=== PATIENT | female | born 1955 | race Caucasian/White ===

== ENCOUNTER 2024-01-11 09:53 | Inpatient (IN) ==
[2024-01-11 10:26] LABS: Basophils # (auto) 0.04 K/uL (0.00-0.20); Basophils % (auto) 0.5 %; Eosinophils # (auto) 0.08 K/uL (0.00-0.50); Hematocrit (blood only) 27.3 % (37.0-47.0); Hemoglobin 9.1 g/dl (12.0-16.0); Immature Granulocytes # (auto) 0.06 K/uL (0.01-0.20); Immature Granulocytes % (auto) 0.7 %; Lymphocytes # (auto) 0.86 K/uL (1.20-3.40); Lymphocytes % (auto) 10.7 %; Mean Corpuscular Hemoglobin 29.4 pg (25.0-34.0); Mean Corpuscular Hgb Conc 33.3 g/dL (32.0-36.0); Mean Corpuscular Volume 88.1 fL (80.0-100.0); Mean Platelet Volume 10.8 fL (9.4-12.4); Monocytes # (auto) 0.98 K/uL (0.11-0.59); Monocytes % (auto) 12.2 %; Neutrophils # (auto) 6.04 K/uL (1.40-6.50); Neutrophils % (auto) 74.9 %; Platelet Count 182 K/uL (130-400); RDW Coefficient of Variation 19.7 % (11.5-14.5); RDW Standard Deviation 63.7 fL (36.4-46.3); White Blood Count 8.06 K/ul (4.8-10.8)
[2024-01-11 10:42] LABS: Pregnancy Test, Serum Negative (Negative)
[2024-01-11 10:43] LABS: Albumin Globulin Ratio 0.9 (0.9-2); Albumin Level 2.9 gm/dl (3.4-5.0); BUN Creatinine Ratio 10.1 (10-20); Bilirubin,Total 3.8 mg/dl (0.2-1.0); Calcium 7.9 mg/dl (8.6-10.3); Creatinine Clr Calc Pharmacy 55.8 ml/min; Globulin 3.2 gm/dl (2.5-4.0); Potassium 2.6 mmol/L (3.5-5.1); Total Protein 6.1 gm/dl (6.0-8.3)
[2024-01-11] MEDS: POTASSIUM CHLORIDE CRTAB 20 MEQ TABCR PO STA ×2 (11:04→14:23)
[2024-01-11 11:05] LABS: INR 1.3 (0.9-1.1); Prothrombin Time 13.5 Seconds (9.0-12.0)
[2024-01-11 11:08] LABS: Magnesium 1.4 mg/dl (1.7-2.4)
[2024-01-11] MEDS: OPTIRAY 320 100ml IV ONE (11:12)
[2024-01-11] MEDS: MAGNESIUM SULFATE / D5W 1 GM/100 ML BAG IV STA (11:21)
--- NOTE | 2024-01-11 11:21 | XRay Report ---
LEFT ANKLE 3 VIEWS CLINICAL HISTORY: Left ankle pain. FINDINGS: 3 views of the left ankle are compared to study dated 07/10/2020. The skeletal structures ar e osteopenic. No acute fracture is identified. There is chronic posttraumatic deformity of the distal tibia and fibula. A buttress plate is again seen along the lateral cortex of the distal fibula. 2 sm all plates are seen along the medial cortex of the distal tibia. The orthopedic hardware appears inta ct. Benign-appearing periostitis is seen along the distal tibial and fibular shafts. The ankle mortis e is intact. No joint effusion is identified. There are tiny dorsal and plantar heel spurs. Soft tiss ue swelling is seen around the ankle. IMPRESSION: 1. Soft tissue swelling with no radiographic evidence of acute fracture. 2. Osteopenia with chronic and postsurgical changes as above. 3. Tiny healed spurs. Electronically signed by: Arsalan Carreon M.D. 01/11/2024 11:19 AM
--- NOTE | 2024-01-11 11:40 | CT Scan Report ---
CT SCAN OF THE ABDOMEN AND PELVIS WITH IV CONTRAST CLINICAL HISTORY: Generalized abdominal pain. Distention. COMPARISON STUDY: No priors. TECHNIQUE: Following the IV administration of 94 cc of Optiray 320, CT scan of the abdomen and pelvi s is performed from the lung bases to the proximal femora. Images are reviewed in the axial, sagittal , and coronal planes. IV contrast was administered without complication. A dose lowering technique wa s utilized adhering to the principles of ALARA. CT DOSE: 684.74 mGy.cm FINDINGS: Lung bases: The heart is normal in size and without pericardial effusion. There is coronary artery at herosclerosis. Emphysematous change is noted. There is bibasilar scarring/atelectasis. No airspace co nsolidation or pleural effusion identified. There is a moderate to large hiatal hernia. Esophageal va rices are noted. Liver: The contrast-enhanced liver is cirrhotic in morphology and heterogeneous in attenuation. Atten uation is diminished indicating a component of steatosis. There is hypertrophy of the left lobe and n odularity of the hepatic surface contour. There is diffuse micronodularity throughout the liver. Ther e is no intrahepatic biliary ductal dilatation. The hepatic veins and portal veins are patent. There is recanalization of the periumbilical vein. Gallbladder: Unremarkable. Spleen: Normal in size and attenuation, measuring 10.3 cm in length. Pancreas: Unremarkable. Adrenal glands: Unremarkable. Kidneys: The contrast enhanced kidneys are normal in size and without hydronephrosis. The kidneys enh ance symmetrically. Abdominal vasculature: There is advanced atherosclerotic calcification and ectasia of the abdominal a kimberly. Bowel: There is mild colonic diverticulosis without CT evidence of acute diverticulitis. No bowel obs truction is seen. Wall thickening and edema of the right colon is nonspecific and likely represents p ortal colopathy.. The appendix is normal as imaged. Peritoneum: There is a moderate to large volume of abdominopelvic ascites. No intraperitoneal free ai r is seen. Lymphadenopathy: None. Pelvic viscera: The bladder is decompressed and not well evaluated. The endometrium appears thickened an enhancing. No adnexal lesion is seen. Skeletal structures: The skeletal structures are heterogeneously osteopenic. There is mild to moderat e lumbosacral spondylosis. No lytic or blastic lesions are seen. IMPRESSION: 1. The liver is cirrhotic in morphology and heterogeneous in attenuation. 2. Moderate to large volume of abdominopelvic ascites, esophageal varices, and recanalization of the periumbilical vein indicate portal hypertension. 3. There is diffuse micronodularity throughout the liver, which may represent regenerative nodules of cirrhosis. Correlate with serum AFP levels. 4. Moderate to large hiatal hernia. 5. Emphysema. 6. Wall thickening of the left colon is nonspecific and likely represent portal colopathy. Clinical c orrelation will be required. 7. The endometrium appears thickened and hyperemic. This is not well assessed by CT. Nonemergent foll ow-up with gynecology and pelvic ultrasound is recommended for further assessment. 8. Additional findings as above. ACT 112: Negative or not required by law. Electronically signed by: Arsalan Carreon M.D. 01/11/2024 11:37 AM
--- NOTE | 2024-01-11 12:12 | Electrocardiogram Report ---
Test Reason : Blood Pressure : */* mmHG Vent. Rate : 89 BPM Atrial Rate : 89 BPM P-R Int : 148 ms QRS Dur : 68 ms QT Int : 352 ms P-R-T Axes : 104 89 53 degrees QTcB Int : 428 ms Poor data quality, interpretation may be adversely affected Normal sinus rhythm Low voltage QRS Borderline ECG No previous ECGs available Confirmed by Jordan Garcia ([id number]) on 01/11/2024 12:12:21 PM Referred By: REFERRED SELF Confirmed By: Jordan Garcia
--- NOTE | 2024-01-11 12:25 | Emergency Department Note ---
Impression & Plan Abdominal distension, Ascites, Hyperbilirubinemia, Alcohol use disorder ED Provider Note ED Provider Note NAME: CASEY CALLES AGE:68 SEX: Female : 1955 ARRIVES VIA: EMS INFORMANT: Patient ED PROVIDER(s): Ranjana Abdul DO CHIEF COMPLAINT: Abdominal distention and firmness HPI: This is a 68-year-old female who presents emergency room due to concern for 5 days of increased abdominal distention and firmness per her report. She states she does have some mild pain, no radiation to the back. She denies any nausea or vomiting. She denies any change in urine or stools. She states she has had a similar episode previously but does not recall what the cause was. She states she does have a history of liver problems and does use alcohol though states she has not drank in 6 days. She denies any use of recreationl drugs. She states she "broke her ankle" recently but states she has been walking without pain. PAST MEDICAL HISTORY:See Below PAST SURGICAL HISTORY:See Below FAMILY HISTORY:See Below SOCIAL HISTORY:See Below HOME MEDICATIONS:See Below ALLERGIES:See Below VITALS:See Below PHYSICAL EXAMINATION: GENERAL: alert, well appearing, well nourished, no distress, non-toxic EYE EXAM: normal conjunctiva, PERRL and EOM's grossly intact OROPHARYNX: no exudate, no erythema, lips, buccal mucosa, and tongue normal and mucous membranes are moist NECK: supple, no nuchal rigidity, no adenopathy, non-tender LUNGS: Clear to auscultation. Normal chest wall mechanics, no w/r/r HEART: no murmurs, S1 normal and S2 normal ABDOMEN: abdomen soft, non-tender, normo-active bowel sounds, no masses, no rebound or guarding. Mild distention, dull to percussion, no fluid wave. SKIN: no rashes, petechiae, orbruising UPPER EXTREMITIES: upper extremities are grossly normal. FROM, nml pulses b/l. LOWER EXTREMITIES: No pitting edema. FROM, nml pulses b/l. NEURO EXAM: Normal sensorium, cranial nerves II-XII grossly intact, normal speech, no facial droop,nogross weakness of arms, no gross weakness of legs. Gross sensation intact. No ataxia. Vital Signs: reviewed and remarkable Differential Diagnosis: ascites, viral syndrome, colitis, SBP, electrolyte abnormality, THELMA, hepatitis, cholecystitis, pancreatitis, AAA, mesenteric ischemia, PUD, as well as others were considered MEDICAL DECISION MAKING: THis is a 68 yo female who presents to the ER with concern for abdominal discomfort and distention. She was afebrile and VS stable. Labs drawn and sent, IV established, EKG performed and interpreted at bedside, and patient placed on telemetry. She was sent for CT a/p. Patient given oral potassium repletion and IV magnesium repletion. Given presentation and consideration for ascities, medical alcohol and ammonia added. Ammonia noted to be mildly elevated. No exam findings to suggest SBP. Patient was asking to eat. Given need for further evaluation given lab/imaging findings, no access to prior labs thru the [place], patient living alone, case discussed with the hospitalist team for additional evaluation and mgmt. Anemia noted, patient denied melena/hematochezia. State she doens't take any medications and denies using OTC asa/nsaids. No thrombocytopenia, mild coagulopathy noted. Consultation(s): 1415: Discussed with Dr. Torrez, [facility] hospitalist team, for additional evaluation and management. ER Treatment Provided: See below Diagnostics Interpreted By Me: -ECG: nsr at 89, nml axis, nml intervals, no acute ST/T wave changes, low voltage noted -Cardiac Monitoring: An order was placed for continuous cardiac monitoring. The monitor shows a rate of 82 with normal sinus rhythm. -Laboratory studies: As stated above and show below. -Imaging studies: CT a/p - ascites noted, no perf, no sbo xray left ankle: no fx/dislocation Triage Nursing Note Reviewed Prior/Outside Records Reviewed Past Med/Surg History Problem List (Updated 01/11/24 @ 14:51 by Rojelio Sánchez PA-C) Hepatic encephalopathy Tobacco use Esophageal varices Fall Ascites Thickened endometrium Portal hypertension Liver cirrhosis Anemia Hypokalemia Hypomagnesemia Alcohol use disorder (Acute) Hyperbilirubinemia (Acute) Ascites (Acute) Abdominal distension (Acute) Medical History No acute medical problems Surgical History History of ankle surgery Social History Smoking Status: Current every day smoker Tobacco Type: Cigarettes Hx Alcohol Use: Yes Alcohol type: beer Hx Substance Use: No Preferred Language: Slovak Communication Ability: Effective 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 Beliefs That Will Affect Care: None Current Living Situation: Alone Feels Safe at Home: Yes Allergies Allergies Allergy/AdvReac Type Severity Reaction Status Date / Time No Known Allergies Allergy Unverified 01/11/24 14:10 Home Meds Home Medications Medication Instructions Recorded Confirmed No Known Home Medications 01/11/24 01/11/24 Results & Data (ED) Vital Signs Vital Signs - 24 hr 01/11/24 10:00 01/11/24 10:00 01/11/24 10:15 Temperature 36.4 C L 36.4 C L Temperature Source Oral Oral Pulse Rate 88 88 Pulse Rate [Apical] 88 Pulse Rate from SpO2 Sensor 88 Pulse Rhythm Regular Pulse Rhythm [Apical] Regular Pulse Strength Normal Pulse Strength [Apical] Normal Respiratory Rate 19 16 17 Respiratory Effort / Characteristics Non-Labored Non-Labored Respiratory Depth Normal Normal Respiratory Pattern Regular Blood Pressure 123/86 Blood Pressure [Right Arm] 123/86 Blood Pressure Mean 98 Blood Pressure Mean [Right Arm] 98 Blood Pressure Position Sitting Blood Pressure Position [Right Arm] Sitting Pulse Oximetry 100 100 99 Oxygen Delivery Method Room Air Room Air Sepsis Recent Fever Within 48 Hours No Sepsis New/Unexplained Change in Mental Status No Sepsis Action Taken by Nursing No Action Required 01/11/24 10:28 01/11/24 10:33 01/11/24 11:27 Temperature Temperature Source Pulse Rate 88 86 77 Pulse Rate [Apical] Pulse Rate from SpO2 Sensor 77 Pulse Rhythm Pulse Rhythm [Apical] Pulse Strength Pulse Strength [Apical] Respiratory Rate 17 18 Respiratory Effort / Characteristics Respiratory Depth Respiratory Pattern Blood Pressure Blood Pressure [Right Arm] Blood Pressure Mean Blood Pressure Mean [Right Arm] Blood Pressure Position Blood Pressure Position [Right Arm] Pulse Oximetry 100 Oxygen Delivery Method Sepsis Recent Fever Within 48 Hours Sepsis New/Unexplained Change in Mental Status Sepsis Action Taken by Nursing 01/11/24 11:36 01/11/24 12:00 01/11/24 12:01 Temperature Temperature Source Pulse Rate 74 75 Pulse Rate [Apical] 72 Pulse Rate from SpO2 Sensor 74 Pulse Rhythm Pulse Rhythm [Apical] Regular Pulse Strength Pulse Strength [Apical] Normal Respiratory Rate 18 18 16 Respiratory Effort / Characteristics Non-Labored Respiratory Depth Normal Respiratory Pattern Blood Pressure Blood Pressure [Right Arm] 112/76 Blood Pressure Mean Blood Pressure Mean [Right Arm] 88 Blood Pressure Position Blood Pressure Position [Right Arm] Lying Pulse Oximetry 100 94 Oxygen Delivery Method Room Air Sepsis Recent Fever Within 48 Hours Sepsis New/Unexplained Change in Mental Status Sepsis Action Taken by Nursing 01/11/24 12:06 01/11/24 12:07 01/11/24 12:07 Temperature Temperature Source Pulse Rate 72 Pulse Rate [Apical] Pulse Rate from SpO2 Sensor Pulse Rhythm Pulse Rhythm [Apical] Pulse Strength Pulse Strength [Apical] Respiratory Rate 13 Respiratory Effort / Characteristics Respiratory Depth Respiratory Pattern Blood Pressure 116/75 116/75 Blood Pressure [Right Arm] Blood Pressure Mean 83 83 Blood Pressure Mean [Right Arm] Blood Pressure Position Blood Pressure Position [Right Arm] Pulse Oximetry Oxygen Delivery Method Sepsis Recent Fever Within 48 Hours Sepsis New/Unexplained Change in Mental Status Sepsis Action Taken by Nursing 01/11/24 12:30 01/11/24 12:57 01/11/24 13:01 Temperature Temperature Source Pulse Rate 71 73 Pulse Rate [Apical] Pulse Rate from SpO2 Sensor Pulse Rhythm Pulse Rhythm [Apical] Pulse Strength Pulse Strength [Apical] Respiratory Rate 12 17 Respiratory Effort / Characteristics Respiratory Depth Respiratory Pattern Blood Pressure 119/52 L Blood Pressure [Right Arm] Blood Pressure Mean 89 Blood Pressure Mean [Right Arm] Blood Pressure Position Blood Pressure Position [Right Arm] Pulse Oximetry Oxygen Delivery Method Sepsis Recent Fever Within 48 Hours Sepsis New/Unexplained Change in Mental Status Sepsis Action Taken by Nursing 01/11/24 13:01 01/11/24 13:09 01/11/24 13:39 Temperature Temperature Source Pulse Rate 74 80 Pulse Rate [Apical] Pulse Rate from SpO2 Sensor Pulse Rhythm Pulse Rhythm [Apical] Pulse Strength Pulse Strength [Apical] Respiratory Rate 16 22 Respiratory Effort / Characteristics Respiratory Depth Respiratory Pattern Blood Pressure 119/52 L Blood Pressure [Right Arm] Blood Pressure Mean 89 Blood Pressure Mean [Right Arm] Blood Pressure Position Blood Pressure Position [Right Arm] Pulse Oximetry Oxygen Delivery Method Sepsis Recent Fever Within 48 Hours Sepsis New/Unexplained Change in Mental Status Sepsis Action Taken by Nursing 01/11/24 13:48 01/11/24 14:00 01/11/24 14:00 Temperature Temperature Source Pulse Rate 81 Pulse Rate [Apical] Pulse Rate from SpO2 Sensor Pulse Rhythm Pulse Rhythm [Apical] Pulse Strength Pulse Strength [Apical] Respiratory Rate 19 Respiratory Effort / Characteristics Respiratory Depth Respiratory Pattern Blood Pressure 125/65 125/65 Blood Pressure [Right Arm] Blood Pressure Mean 92 92 Blood Pressure Mean [Right Arm] Blood Pressure Position Blood Pressure Position [Right Arm] Pulse Oximetry Oxygen Delivery Method Sepsis Recent Fever Within 48 Hours Sepsis New/Unexplained Change in Mental Status Sepsis Action Taken by Nursing 01/11/24 14:12 Temperature Temperature Source Pulse Rate 100 H Pulse Rate [Apical] Pulse Rate from SpO2 Sensor Pulse Rhythm Pulse Rhythm [Apical] Pulse Strength Pulse Strength [Apical] Respiratory Rate 21 Respiratory Effort / Characteristics Respiratory Depth Respiratory Pattern Blood Pressure Blood Pressure [Right Arm] Blood Pressure Mean Blood Pressure Mean [Right Arm] Blood Pressure Position Blood Pressure Position [Right Arm] Pulse Oximetry Oxygen Delivery Method Sepsis Recent Fever Within 48 Hours Sepsis New/Unexplained Change in Mental Status Sepsis Action Taken by Nursing Laboratory Data 01/11/24 10:02 01/11/24 19:46 Lab Results 01/11/24 01/11/24 Range/Units 10:02 12:05 WBC 8.06 (4.8-10.8) K/ul RBC 3.10 L (4.20-5.40) M/uL Hgb 9.1 L (12.0-16.0) g/dl Hct 27.3 L (37.0-47.0) % MCV 88.1 (80.0-100.0) fL MCH 29.4 (25.0-34.0) pg MCHC 33.3 (32.0-36.0) g/dL RDW Std Deviation 63.7 H (36.4-46.3) fL RDW Coeff of Liam 19.7 H (11.5-14.5) % Plt Count 182 (130-400) K/uL MPV 10.8 (9.4-12.4) fL Immature Gran % (Auto) 0.7 % Neut % (Auto) 74.9 % Lymph % (Auto) 10.7 % Karnes % (Auto) 12.2 % Eos % (Auto) 1.0 % Baso % (Auto) 0.5 % Neut # (Auto) 6.04 (1.40-6.50) K/uL Lymph # (Auto) 0.86 L (1.20-3.40) K/uL Karnes # (Auto) 0.98 H (0.11-0.59) K/uL Eos # (Auto) 0.08 (0.00-0.50) K/uL Baso # (Auto) 0.04 (0.00-0.20) K/uL Immature Gran # (Auto) 0.06 (0.01-0.20) K/uL PT 13.5 H (9.0-12.0) Seconds INR 1.3 H (0.9-1.1) Sodium 135 L (136-145) mmol/L Potassium 2.6 L (3.5-5.1) mmol/L Chloride 107 (98-107) mmol/L Carbon Dioxide 19 L (21-32) mmol/L Anion Gap 9 (3-11) BUN 9 (6-23) mg/dl Creatinine 0.89 (0.6-1.2) mg/dl Est Cr Clr Drug Dosing 55.8 ml/min eGFR 71.01 BUN/Creatinine Ratio 10.1 (10-20) Glucose 151 H (70-99(Fasting)) mg/dl Calcium 7.9 L (8.6-10.3) mg/dl Magnesium 1.4 L (1.7-2.4) mg/dl Iron 54 (35-150) mcg/dl TIBC 200 L (250-450) mcg/dl Unsaturated IBC 146 L (155-355) mcg/dl Transferrin % Sat 27 (15-50) % Ferritin 57.2 (8-388) ng/ml Total Bilirubin 3.8 H (0.2-1.0) mg/dl AST 81 H (13-39) U/L ALT 33 (7-52) U/L Alkaline Phosphatase 128 H (34-104) U/L Ammonia 73.0 H (18-72) umol/L Total Protein 6.1 (6.0-8.3) gm/dl Albumin 2.9 L (3.4-5.0) gm/dl Globulin 3.2 (2.5-4.0) gm/dl Albumin/Globulin Ratio 0.9 (0.9-2) Lipase 20 (11-82) U/L Vitamin B12 > 1500 H (180-914) pg/ml Folate 13.53 (>5.38) ng/ml HCG, Qual Negative (Negative) Ethyl Alcohol mg/dL < 10.0 (<10.0) mg/dl Administered Medications Acetaminophen (Acetaminophen 325 Mg Tab) 650 mg PO Q6H PRN PRN Reason: Pain or Fever Stop: 02/10/24 19:59 Last Admin: 01/11/24 20:54 Dose: 650 mg Documented By: CHARIS Potassium Chloride (Potassium Chloride Crtab 20 Meq Tabcr) 20 meq PO TID GLORIA Stop: 02/10/24 20:59 Last Admin: 01/11/24 20:54 Dose: 20 meq Documented By: CHARIS Discontinued Medications Magnesium Sulfate/Dextrose (Magnesium Sulfate / D5w) 1 gm in 100 mls @ 100 mls/hr IV NOW STA Stop: 01/11/24 12:10 Last Infusion: 01/11/24 12:23 Dose: Infused Documented By: Admin: 01/11/24 11:21 Dose: 100 mls/hr Documented By: JERMAINE Magnesium Sulfate/Dextrose (Magnesium Sulfate / D5w) 1 gm in 100 mls @ 50 mls/hr IV ONE ONE Stop: 01/11/24 15:47 Last Infusion: 01/11/24 16:47 Dose: Infused Documented By: [facility] [place] Admin: 01/11/24 14:23 Dose: 50 mls/hr Documented By: ROMEL Ceftriaxone Sodium (Rocephin) 2,000 mg in 50 mls @ 100 mls/hr IV Q24H [facility] Stop: 01/13/24 14:59 Last Infusion: 01/11/24 16:47 Dose: Infused Documented By: [facility] [place] Admin: 01/11/24 14:58 Dose: 100 mls/hr Documented By: JERMAINE Ioversol (Optiray 320 100ml) 94 ml IV ONCE ONE Stop: 01/11/24 11:12 Last Admin: 01/11/24 11:12 Dose: 94 ml Documented By: JAYLENE Miscellaneous Information (Patient's Allergy Info Needs Entered) 1 each N/A NOW STA Stop: 01/11/24 14:02 Last Admin: 01/11/24 14:11 Dose: Not Given Documented By: ROMEL Potassium Chloride (Potassium Chloride Crtab 20 Meq Tabcr) 40 meq PO NOW STA Stop: 01/11/24 10:47 Last Admin: 01/11/24 11:04 Dose: 40 meq Documented By: JERMAINE Potassium Chloride (Potassium Chloride Crtab 20 Meq Tabcr) 40 meq PO NOW STA Stop: 01/11/24 13:49 Last Admin: 01/11/24 14:23 Dose: 40 meq Documented By: ES Imaging Data Radiologist's Impression: Abdomen/Pelvis CT 01/11/24 10:47 CT SCAN OF THE ABDOMEN AND PELVIS WITH IV CONTRAST CLINICAL HISTORY: Generalized abdominal pain. Distention. COMPARISON STUDY: No priors. TECHNIQUE: Following the IV administration of 94 cc of Optiray 320, CT scan of the abdomen and pelvis is performed from the lung bases to the proximal femora. Images are reviewed in the axial, sagittal, and coronal planes. IV contrast was administered without complication. A dose lowering technique was utilized adhering to the principles of ALARA. CT DOSE: 684.74 mGy.cm FINDINGS: Lung bases: The heart is normal in size and without pericardial effusion. There is coronary artery atherosclerosis. Emphysematous change is noted. There is bibasilar scarring/atelectasis. No airspace consolidation or pleural effusion identified. There is a moderate to large hiatal hernia. Esophageal varices are noted. Liver: The contrast-enhanced liver is cirrhotic in morphology and heterogeneous in attenuation. Attenuation is diminished indicating a component of steatosis. There is hypertrophy of the left lobe and nodularity of the hepatic surface contour. There is diffuse micronodularity throughout the liver. There is no intrahepatic biliary ductal dilatation. The hepatic veins and portal veins are patent. There is recanalization of the periumbilical vein. Gallbladder: Unremarkable. Spleen: Normal in size and attenuation, measuring 10.3 cm in length. Pancreas: Unremarkable. Adrenal glands: Unremarkable. Kidneys: The contrast enhanced kidneys are normal in size and without hydronephrosis. The kidneys enhance symmetrically. Abdominal vasculature: There is advanced atherosclerotic calcification and ectasia of the abdominal aorta. Bowel: There is mild colonic diverticulosis without CT evidence of acute diverticulitis. No bowel obstruction is seen. Wall thickening and edema of the right colon is nonspecific and likely represents portal colopathy.. The appendix is normal as imaged. Peritoneum: There is a moderate to large volume of abdominopelvic ascites. No intraperitoneal free air is seen. Lymphadenopathy: None. Pelvic viscera: The bladder is decompressed and not well evaluated. The endometrium appears thickened an enhancing. No adnexal lesion is seen. Skeletal structures: The skeletal structures are heterogeneously osteopenic. There is mild to moderate lumbosacral spondylosis. No lytic or blastic lesions are seen. IMPRESSION: 1. The liver is cirrhotic in morphology and heterogeneous in attenuation. 2. Moderate to large volume of abdominopelvic ascites, esophageal varices, and recanalization of the periumbilical vein indicate portal hypertension. 3. There is diffuse micronodularity throughout the liver, which may represent regenerative nodules of cirrhosis. Correlate with serum AFP levels. 4. Moderate to large hiatal hernia. 5. Emphysema. 6. Wall thickening of the left colon is nonspecific and likely represent portal colopathy. Clinical correlation will be required. 7. The endometrium appears thickened and hyperemic. This is not well assessed by CT. Nonemergent follow-up with gynecology and pelvic ultrasound is recommended for further assessment. 8. Additional findings as above. ACT 112: Negative or not required by law. Electronically signed by: Arsalan Carreon M.D. 01/11/2024 11:37 AM Ankle X-Ray 01/11/24 10:47 LEFT ANKLE 3 VIEWS CLINICAL HISTORY: Left ankle pain. FINDINGS: 3 views of the left ankle are compared to study dated 07/10/2020. The skeletal structures are osteopenic. No acute fracture is identified. There is chronic posttraumatic deformity of the distal tibia and fibula. A buttress plate is again seen along the lateral cortex of the distal fibula. 2 small plates are seen along the medial cortex of the distal tibia. The orthopedic hardware appears intact. Benign-appearing periostitis is seen along the distal tibial and fibular shafts. The ankle mortise is intact. No joint effusion is identified. There are tiny dorsal and plantar heel spurs. Soft tissue swelling is seen around the ankle. IMPRESSION: 1. Soft tissue swelling with no radiographic evidence of acute fracture. 2. Osteopenia with chronic and postsurgical changes as above. 3. Tiny healed spurs. Electronically signed by: Arsalan Carreon M.D. 01/11/2024 11:19 AM Discharge Plan Visit Data Chief Complaint: Abdominal Pain ED Provider: Ranjana Abdul Discharge Problem: Abdominal distension, Ascites, Hyperbilirubinemia, Alcohol use disorder Patient Disposition: Admitted As Inpatient Discharge Instructions Interventions: ED Discharge Assessment Last Done: 01/11/24 16:10
--- NOTE | 2024-01-11 13:34 | History & Physical Report ---
Date of Service January 11, 2024 Assessment & Plan (1) Ascites: Plan: Patient presented on 01/10 for abdominal distention, lower back pain, and bilateral wheezing While patient does have a listed history of alcohol abuse, she denies any recent alcohol use or history of heavy alcohol use Inconsistent story when discussing with ED provider; patient also reports that she fell when talking to her ED provider, but denies following on admission Concern for hepatic/metabolic encephalopathy (see below) Moderate to large volume abdominal pelvic ascites noted on A/P CT Also noted cirrhotic liver and diffuse micro nodularity throughout the liver No leukocytosis; afebrile Clinically, low suspicion for SBP; patient does report mild TTP in the RUQ, but abdominal exam is otherwise soft, NTP IR paracentesis ordered for the morning of 01/11 Will start patient on Lasix 20mg IV daily and Spironolactone 50 mg p.o. daily on 01/12 (or sooner pending mag/K repletion) Continuous telemetry monitoring A.m. CBC, CMP, PT/INR, Mag (2) Hepatic encephalopathy: Plan: Patient appears somewhat confused, and is fiddling with telemetry wires and removing telephone strips on arrival Ammonia mildly elevated at 73.0 on arrival Concern for hepatic encephalopathy Trend BMP q4h for now Will plan to start lactulose 20 mg p.o. on the morning of 01/12 (or after sufficient potassium/mag repletion) Monitor for diarrhea and rebound hypokalemia (3) Hypomagnesemia: Plan: Mag 1.4 on arrival Magnesium sulfate 1 g IV x 2 Continue repletion Trend mag (4) Hypokalemia: Plan: Potassium 2.6 on arrival Potassium chloride 80mEq p.o. supplementation Will start patient on potassium chloride supplement 20mEq TID Trend K (5) Anemia: Plan: Hgb 9.1 on arrival Patient denies any recent falls/injuries, melena, or blood in her urine or stool Clinically, no signs of active bleeding on physical exam; suspect this may be more gradual MCV WNL at 88.1, but elevated RDW FE panel, transferrin, vitamin B12, and folate ordered, pending ? B12 deficiency Trend CBC (6) Thickened endometrium: Plan: A/P CT on arrival revealed a thickened endometrium Nonemergent follow-up with gynecology is recommended upon discharge (7) Liver cirrhosis: Plan: Noted on A/P CT Treatment (as above) (8) Portal hypertension: Plan: Noted on A/P CT Treatment (as above) (9) Fall: Plan: Patient lives alone She reports that she fell and hurt her ankle on ED arrival However, she denies falling on admission Left ankle x-ray without acute fracture on arrival PT/OT evaluations appreciated Fall precautions (10) Esophageal varices: Plan: Unclear if these are new on A/P CT Rocephin 2000 mg IV q24h (11) Tobacco use: Plan: Patient is a current everyday tobacco cigarette smoker; <1 PPD Nicotine patch daily Continue to encourage cessation Plan Disposition: Admit to [facility] telemetry Full code Regular diet VTE PPx: Will hold chemical DVT PPX in the setting of potential paracentesis; SCDs History of Present Illness Chief Complaint: Abdominal distention/pain Primary Care Provider: NO PCP Crys is a 68-year-old female with PMH of alcohol use disorder and hyperbilirubinemia. She presented via EMS on 01/10 for lower back pain and abdominal distention. Patient reports that she came in because her stomach became "very hard". She reports that abdominal distention has been worsening over the past 4 to 5 days. Patient lives alone. She reports that she does have a history of liver issues, and believes she has "sclerosis" of the liver. She denies any trouble breathing, but does note abdominal pressure/pain. He rates the pain 5/10 at present, and characterizes it as a dull/achy pain that comes in waves. She denies any recent falls. She denies using a walker or cane at home. She does not take any medicine on a daily basis. Patient reports she is an everyday tobacco cigarette smoker; <1 PPD. She denies chewing tobacco or recreational drug use. She does report that she uses alcohol, but reports that her last drink was over 1 week ago. She denies history of heavy alcohol use. Patient's vitals are stable at time of admission. ED course: Potassium 40 mEq p.o. Magnesium sulfate 1 g IV ROS: Patient endorses cold intolerance, abdominal distention/pain, lower back pain, or nausea. Patient denies fever, night-sweats, dizziness, lightheadedness, chest pain, SOB, chest palpitations, pleuritic CP, cough, vomiting, diarrhea, blood in urine/stool, melena, burning with urination, saddle anesthesia, and numbness/tingling in the legs. Allergies Allergy/AdvReac Type Severity Reaction Status Date / Time No Known Allergies Allergy Unverified 01/11/24 14:10 Home Medications Medication Instructions Recorded Confirmed Type No Known Home Medications 01/11/24 01/11/24 History Past Med/Surg History Problem List (Updated 01/11/24 @ 14:51 by Rojelio Sánchez PA-C) Hepatic encephalopathy Tobacco use Esophageal varices Fall Ascites Thickened endometrium Portal hypertension Liver cirrhosis Anemia Hypokalemia Hypomagnesemia Alcohol use disorder (Acute) Hyperbilirubinemia (Acute) Ascites (Acute) Abdominal distension (Acute) Medical History No acute medical problems Surgical History History of ankle surgery Social History Smoking Status: Current every day smoker Tobacco Type: Cigarettes Preferred Language: Georgian Feels Safe at Home: Yes Review of Systems Review of Systems: See HPI above Physical Exam Physical Exam: General: On arrival, patient is standing by the telemetry wires gently stroking them; unplugged several wires; patient appears somewhat confused with a flat affect; no acute distress; non-toxic appearing; somewhat cachectic; cooperative; SpO2 94% on RA HEENT: normocephalic, atraumatic; no scleral icterus; PERRLA; vision and hearing intact Neck: supple; no lymphadenopathy; trachea midline Skin: warm, dry without signs of tenting; poor skin turgor; mild jaundice; no cyanosis; no rashes, bruising, lesions, or erythema noted CV: chest wall NTP; RRR; S1/S2 normal; no murmurs/rubs/gallops; pulses intact and symmetric at radial, DP, and PT Lungs: no acute respiratory distress; symmetrical chest wall expansion; clear breath sounds across all lung rojas w/o adventitious sounds; no wheezing ABD: Soft; moderate to large abdominal ascites; moderate distention; right upper quadrant is tender to palpation; BS present; no rebound/guarding MSK: no tics or fasciculations; no edema noted in the LEs b/l, nonerythematous Neuro: A&Ox3; normal mood and affect; fluent speech; no focal deficits; sensation grossly intact in the LEs b/l Results & Data Results & Data Vital Signs (Past 12 Hours) Vital Signs Temp Pulse Pulse Resp BP BP Pulse Ox 01/11/24 12:01 72 16 112/76 94 01/11/24 10:28 88 01/11/24 10:00 36.4 C L 88 16 123/86 100 01/11/24 10:00 36.4 C L 88 19 123/86 100 O2 Del Method 01/11/24 12:01 Room Air 01/11/24 10:28 01/11/24 10:00 Room Air 01/11/24 10:00 Room Air Laboratory Results Abnormal lab results 01/11/24 01/11/24 Range/Units 10:02 12:05 RBC 3.10 L (4.20-5.40) M/uL Hgb 9.1 L (12.0-16.0) g/dl Hct 27.3 L (37.0-47.0) % RDW Std Deviation 63.7 H (36.4-46.3) fL RDW Coeff of Liam 19.7 H (11.5-14.5) % Lymph # (Auto) 0.86 L (1.20-3.40) K/uL Gosper # (Auto) 0.98 H (0.11-0.59) K/uL PT 13.5 H (9.0-12.0) Seconds INR 1.3 H (0.9-1.1) Sodium 135 L (136-145) mmol/L Potassium 2.6 L (3.5-5.1) mmol/L Carbon Dioxide 19 L (21-32) mmol/L Glucose 151 H (70-99(Fasting)) mg/dl Calcium 7.9 L (8.6-10.3) mg/dl Magnesium 1.4 L (1.7-2.4) mg/dl Total Bilirubin 3.8 H (0.2-1.0) mg/dl AST 81 H (13-39) U/L Alkaline Phosphatase 128 H (34-104) U/L Ammonia 73.0 H (18-72) umol/L Albumin 2.9 L (3.4-5.0) gm/dl Diagnostic Findings Abdomen/Pelvis CT 01/11/24 10:47 CT SCAN OF THE ABDOMEN AND PELVIS WITH IV CONTRAST CLINICAL HISTORY: Generalized abdominal pain. Distention. COMPARISON STUDY: No priors. TECHNIQUE: Following the IV administration of 94 cc of Optiray 320, CT scan of the abdomen and pelvis is performed from the lung bases to the proximal femora. Images are reviewed in the axial, sagittal, and coronal planes. IV contrast was administered without complication. A dose lowering technique was utilized adhering to the principles of ALARA. CT DOSE: 684.74 mGy.cm FINDINGS: Lung bases: The heart is normal in size and without pericardial effusion. There is coronary artery atherosclerosis. Emphysematous change is noted. There is bibasilar scarring/atelectasis. No airspace consolidation or pleural effusion identified. There is a moderate to large hiatal hernia. Esophageal varices are noted. Liver: The contrast-enhanced liver is cirrhotic in morphology and heterogeneous in attenuation. Attenuation is diminished indicating a component of steatosis. There is hypertrophy of the left lobe and nodularity of the hepatic surface contour. There is diffuse micronodularity throughout the liver. There is no intrahepatic biliary ductal dilatation. The hepatic veins and portal veins are patent. There is recanalization of the periumbilical vein. Gallbladder: Unremarkable. Spleen: Normal in size and attenuation, measuring 10.3 cm in length. Pancreas: Unremarkable. Adrenal glands: Unremarkable. Kidneys: The contrast enhanced kidneys are normal in size and without hydronephrosis. The kidneys enhance symmetrically. Abdominal vasculature: There is advanced atherosclerotic calcification and ectasia of the abdominal aorta. Bowel: There is mild colonic diverticulosis without CT evidence of acute diverticulitis. No bowel obstruction is seen. Wall thickening and edema of the right colon is nonspecific and likely represents portal colopathy.. The appendix is normal as imaged. Peritoneum: There is a moderate to large volume of abdominopelvic ascites. No intraperitoneal free air is seen. Lymphadenopathy: None. Pelvic viscera: The bladder is decompressed and not well evaluated. The endometrium appears thickened an enhancing. No adnexal lesion is seen. Skeletal structures: The skeletal structures are heterogeneously osteopenic. There is mild to moderate lumbosacral spondylosis. No lytic or blastic lesions are seen. IMPRESSION: 1. The liver is cirrhotic in morphology and heterogeneous in attenuation. 2. Moderate to large volume of abdominopelvic ascites, esophageal varices, and recanalization of the periumbilical vein indicate portal hypertension. 3. There is diffuse micronodularity throughout the liver, which may represent regenerative nodules of cirrhosis. Correlate with serum AFP levels. 4. Moderate to large hiatal hernia. 5. Emphysema. 6. Wall thickening of the left colon is nonspecific and likely represent portal colopathy. Clinical correlation will be required. 7. The endometrium appears thickened and hyperemic. This is not well assessed by CT. Nonemergent follow-up with gynecology and pelvic ultrasound is recommended for further assessment. 8. Additional findings as above. ACT 112: Negative or not required by law. Electronically signed by: Arsalan Carreon M.D. 01/11/2024 11:37 AM Ankle X-Ray 01/11/24 10:47 LEFT ANKLE 3 VIEWS CLINICAL HISTORY: Left ankle pain. FINDINGS: 3 views of the left ankle are compared to study dated 07/10/2020. The skeletal structures are osteopenic. No acute fracture is identified. There is chronic posttraumatic deformity of the distal tibia and fibula. A buttress plate is again seen along the lateral cortex of the distal fibula. 2 small plates are seen along the medial cortex of the distal tibia. The orthopedic hardware appears intact. Benign-appearing periostitis is seen along the distal tibial and fibular shafts. The ankle mortise is intact. No joint effusion is identified. There are tiny dorsal and plantar heel spurs. Soft tissue swelling is seen around the ankle. IMPRESSION: 1. Soft tissue swelling with no radiographic evidence of acute fracture. 2. Osteopenia with chronic and postsurgical changes as above. 3. Tiny healed spurs. Electronically signed by: Arsalan Carreon M.D. 01/11/2024 11:19 AM ECG Additional Comments: ECG revealed NSR at 89 bpm; QTc 428 Code Status & VTE Plan Code Status Full code (patient reports that she would want her friend Behzad to be her medical proxy in an emergency situation emergencies) VTE Prophylaxis Plan VTE Prophylaxis will be ordered: Yes Supervising Physician Co-Signing Physician Notes Patient seen and examined, chart reviewed, case discussed with Rojelio Sánchez PA-C and I agree with the assessment and plan as above except as otherwise noted Labs and images reviewed Crys is a 68-year-old female with past medical history of alcohol abuse with cirrhosis, hyperbilirubinemia, and she receives most of her care at the [facility] limiting records at time of admission who presented to the hospital with 5 days of worsening abdominal distention. On ER evaluation patient was intermittently confused, with some behavioral abnormalities and inconsistent story concerning for confabulation/encephalopathy. Patient was recommended for admission for management of abdominal pain likely due to ascites, and evaluation of possible Warnicke's versus hepatic encephalopathy. Synthetic function is impaired with INR of 1.3, albumin 2.9, ammonia of 73. CTA/P with cirrhotic liver morphology, moderate to large volume of ascites and stigmata of portal hypertension. Esophageal varices are noted radiographically. Alcohol level on admission is negative Records pending from [facility]. Limited history available at time of admission Cirrhosis, suspect hepatic encephalopathy Ammonia 73. Patient is mildly cephalopathic and would benefit from initiation of lactulose therapy however she is also severely hypokalemic with concerns of longstanding malnutrition. Given this recommend replating potassium and deferring lactulose until potassium is stable on at least 23 BMP rechecks prior due to risk of worsening hypokalemia with loose bowel movements. Will tentatively schedule to start 01/12 and continue potassium 3 times daily repletion until that time Start on low-dose Lasix/spironolactone and uptitrate as tolerated. This is scheduled to start on 01/12 a.m. Paracentesis ordered for morning of 01/12/2024. MeldNA 16 points, 6% 3-month mortality Child-De Santiago class C Patient denies melena/hematochezia. Hemoglobin has dropped from 13.7 in - 9.1 on admission. No baseline for reference. Patient is covered for GI bleed and for SBP prophylaxis with Rocephin daily. History of alcohol abuse Patient is not in withdrawal on admission, is at risk by history Placed on AWSS at risk protocol. Given thiamine repletion. B12/folic levels pending Hypokalemia: Repleted Hypomagnesemia: Repleted Endometrial thickening: Noted on CT. Recommend nonemergent ACCOUNTING ADVISORY SERVICES MANAGER pelvic ultrasound for follow-up. Agree with above. Collateral pending from [facility] PG Care Time/CCT Total # of Minutes Spent Total Time Spent with Patient: Total time spent is greater than 50% in coordination of care (as documented) at patient's floor/unit and/or counseling patient: [place] [address] INT INP/OBS CARE MIN Patient Type Established History Comprehensive Exam Comprehensive Medical Decision Making High Complexity Diagnoses Ascites R18.8 Hepatic encephalopathy K76.82 Hypomagnesemia E83.42 Hypokalemia E87.6 Anemia D64.9 Thickened endometrium R93.89 Liver cirrhosis K74.60 Portal hypertension K76.6 Fall W19.XXXA Esophageal varices I85.00 Tobacco use Z72.0
[2024-01-11] MEDS: Patient's ALLERGY Info needs ENTERED STA (14:11)
[2024-01-11] MEDS: MAGNESIUM SULFATE / D5W 1 GM/100 ML BAG IV ONE (14:23)
[2024-01-11] MEDS: cefTRIAXone SODIUM 2,000 MG/50 ML BAG IV SCH (14:58)
[2024-01-11 14:59] LABS: Ferritin 57.2 ng/ml (8-388)
[2024-01-11 15:07] LABS: Folate (Folic Acid),Ser orPlas 13.53 ng/ml (>5.38)
[2024-01-11 15:08] LABS: Vitamin B12 > 1500 pg/ml (180-914)
[2024-01-11 15:52] LABS: Calcium 7.7 mg/dl (8.6-10.3); Creatinine Clr Calc Pharmacy 59.8 ml/min; Potassium 2.8 mmol/L (3.5-5.1)
[2024-01-11 20:22] LABS: BUN Creatinine Ratio 9.7 (10-20); Calcium 7.6 mg/dl (8.6-10.3); Creatinine Clr Calc Pharmacy 53.4 ml/min; Magnesium 1.9 mg/dl (1.7-2.4); Potassium 2.9 mmol/L (3.5-5.1)
[2024-01-11] MEDS: POTASSIUM CHLORIDE CRTAB 20 MEQ TABCR PO SCH (20:54)
[2024-01-11] MEDS: ACETAMINOPHEN 325 MG TAB PO PRN (20:54)
[2024-01-12 06:22] LABS: Basophils # (auto) 0.04 K/uL (0.00-0.20); Basophils % (auto) 0.5 %; Eosinophils # (auto) 0.14 K/uL (0.00-0.50); Eosinophils % (auto) 1.6 %; Hematocrit (blood only) 23.1 % (37.0-47.0); Hemoglobin 7.8 g/dl (12.0-16.0); Immature Granulocytes # (auto) 0.06 K/uL (0.01-0.20); Immature Granulocytes % (auto) 0.7 %; Lymphocytes # (auto) 1.13 K/uL (1.20-3.40); Lymphocytes % (auto) 13.1 %; Mean Corpuscular Hemoglobin 28.9 pg (25.0-34.0); Mean Corpuscular Hgb Conc 33.8 g/dL (32.0-36.0); Mean Corpuscular Volume 85.6 fL (80.0-100.0); Mean Platelet Volume 11.1 fL (9.4-12.4); Monocytes # (auto) 1.08 K/uL (0.11-0.59); Monocytes % (auto) 12.5 %; Neutrophils # (auto) 6.18 K/uL (1.40-6.50); Neutrophils % (auto) 71.6 %; Platelet Count 163 K/uL (130-400); RDW Coefficient of Variation 19.8 % (11.5-14.5); RDW Standard Deviation 62.4 fL (36.4-46.3); White Blood Count 8.63 K/ul (4.8-10.8)
[2024-01-12 06:38] LABS: Albumin Globulin Ratio 0.9 (0.9-2); Albumin Level 2.5 gm/dl (3.4-5.0); BUN Creatinine Ratio 12.2 (10-20); Calcium 7.7 mg/dl (8.6-10.3); Creatinine Clr Calc Pharmacy 55.3 ml/min; Globulin 2.9 gm/dl (2.5-4.0); Magnesium 1.8 mg/dl (1.7-2.4); Potassium 3.7 mmol/L (3.5-5.1); Total Protein 5.4 gm/dl (6.0-8.3)
[2024-01-12 06:48] LABS: INR 1.2 (0.9-1.1); Prothrombin Time 13.1 Seconds (9.0-12.0)
[2024-01-12 06:51] LABS: Polychromasia 1+; Target Cells 1+; Toxic Granulation 1+
[2024-01-12] MEDS: NICOTINE 14 MG/24 HR PATCH TD SCH (07:30)
[2024-01-12] MEDS: ONDANSETRON INJ 2 MG/ML 2 ML VIAL IV PRN (12:22)
--- NOTE | 2024-01-12 14:58 | Ultrasound Report ---
ULTRASOUND-GUIDED PARACENTESIS CLINICAL HISTORY: Ascites PROCEDURE: Procedure and risks were explained. Informed consent was obtained. A final timeout was com pleted. The abdomen was prepped and draped in sterile fashion. 1% buffered lidocaine was utilized for skin anesthesia. Utilizing ultrasound guidance, a 5 Cambodian safety centesis catheter was advanced into the left lower q uadrant pocket of ascites. Ultrasound images were obtained. A total of 4 L of ascites fluid was remov ed with 1 L sent to the lab for analysis. The catheter was removed and Band-Aid applied. The patient tolerated the procedure well. Vital signs will be monitored postprocedure. IMPRESSION: Ultrasound-guided paracentesis as above. Performed, dictated, and signed by Ritchie Yeh PA-C; to be co-signed by Dr. Brian Mckenzie. Electronically signed by: Brian Mckenzie M.D. 01/12/2024 5:15 PM
[2024-01-12] MEDS: cefTRIAXone SODIUM 1,000 MG/50 ML BAG IV SCH (15:14)
[2024-01-12 16:08] LABS: Appearance Peritoneal Fluid Clear; Color Peritoneal Fluid Yellow; RBC Peritoneal Fluid Auto < 2000 /uL; WBC Peritoneal Fluid Auto 100 /ul (0-300)
[2024-01-12 16:47] LABS: Lymphocytes, Fluid 15 %; Mono,Macrophage,Mesothelial 53 %; Neutrophils, Fluid 32 %
[2024-01-12 18:17] LABS: Hemoglobin 8.2 g/dl (12.0-16.0)
[2024-01-12 18:33] LABS: BUN Creatinine Ratio 12.2 (10-20); Calcium 7.7 mg/dl (8.6-10.3); Creatinine Clr Calc Pharmacy 55.3 ml/min; Potassium 3.6 mmol/L (3.5-5.1)
[2024-01-12 19:19] LABS: Albumin Peritoneal Fluid < 1.5 gm/dl; Total Protein Peritoneal Fluid < 3.0 gm/dl
[2024-01-12] MEDS: MAGNESIUM SULFATE / D5W 1 GM/100 ML BAG IV SCH (19:52)
[2024-01-12] MEDS: POT PHOSPHATE MONOBASIC W/ SOD TAB PO SCH (20:51)
--- NOTE | 2024-01-12 21:54 | Hospitalist Progress Note ---
Date of Service January 12, 2024 Assessment & Plan (1) Ascites: Plan: Patient presented on 01/10 for abdominal distention, lower back pain, and bilateral wheezing While patient does have a listed history of alcohol abuse, she denies any recent alcohol use or history of heavy alcohol use Inconsistent story when discussing with ED provider; patient also reports that she fell when talking to her ED provider, but denies following on admission Concern for hepatic/metabolic encephalopathy (see below) Moderate to large volume abdominal pelvic ascites noted on A/P CT Also noted cirrhotic liver and diffuse micro nodularity throughout the liver No leukocytosis; afebrile Clinically, low suspicion for SBP; patient does report mild TTP in the RUQ, but abdominal exam is otherwise soft, NTP IR paracentesis ordered for the morning of 01/11 Will start patient on Lasix 20mg IV daily and Spironolactone 50 mg p.o. daily on 01/12 (or sooner pending mag/K repletion) Continuous telemetry monitoring Removed 4 liters of fluid on 01/11 will monitor. (2) Hepatic encephalopathy: Plan: Patient appears somewhat confused, and is fiddling with telemetry wires and removing telephone strips on arrival Ammonia mildly elevated at 73.0 on arrival Concern for hepatic encephalopathy Trend BMP q4h for now Will plan to start lactulose 20 mg p.o. on the morning of 01/12 (or after sufficient potassium/mag repletion) Monitor for diarrhea and rebound hypokalemia (3) Hypomagnesemia: Plan: Mag 1.4 on arrival Magnesium sulfate 1 g IV x 2 Continue repletion Trend mag (4) Hypokalemia: Plan: Potassium 2.6 on arrival Potassium chloride 80mEq p.o. supplementation Will start patient on potassium chloride supplement 20mEq TID (5) Anemia: Plan: Hgb 9.1 on arrival Patient denies any recent falls/injuries, melena, or blood in her urine or stool Clinically, no signs of active bleeding on physical exam; suspect this may be more gradual MCV WNL at 88.1, but elevated RDW FE panel, transferrin, vitamin B12, and folate ordered, pending ? B12 deficiency Trend CBC (6) Thickened endometrium: Plan: A/P CT on arrival revealed a thickened endometrium Nonemergent follow-up with gynecology is recommended upon discharge (7) Liver cirrhosis: Plan: Noted on A/P CT Treatment (as above) (8) Portal hypertension: Plan: Noted on A/P CT Treatment (as above) (9) Fall: Plan: Patient lives alone She reports that she fell and hurt her ankle on ED arrival However, she denies falling on admission Left ankle x-ray without acute fracture on arrival PT/OT evaluations appreciated Fall precautions (10) Esophageal varices: Plan: Unclear if these are new on A/P CT Rocephin 2000 mg IV q24h (11) Tobacco use: Plan: Patient is a current everyday tobacco cigarette smoker; <1 PPD Nicotine patch daily Continue to encourage cessation Plan Disposition: Admit to [facility] telemetry Full code Regular diet VTE PPx: Will hold chemical DVT PPX in the setting of potential paracentesis; SCDs Admission and Anticipated Discharge Date Admission Date: January 11, 2024 Subjective 68 yo female reports no new symptoms. Review of Systems Review of Systems: All systems reviewed & are unremarkable except as noted in HPI & below Physical Exam Physical Exam: NAD HEENT: normocephalic, atraumatic; no scleral icterus; PERRLA; vision and hearing intact Neck: supple; no lymphadenopathy; trachea midline Skin: warm, dry without signs of tenting; Lungs: CTA B/L ABD: Soft; NT/ND Results & Data Results & Data Vital Signs (Past 12 Hours) Vital Signs Temp Pulse Pulse Pulse Resp BP Pulse Ox 01/12/24 19:53 36.7 C 93 H 20 101/65 98 01/12/24 16:30 36.8 C 88 16 98/62 L 99 01/12/24 14:50 92 H 01/12/24 10:43 36.8 C 86 18 95/58 L 99 O2 Del Method 01/12/24 19:53 Room Air 01/12/24 16:30 Room Air 01/12/24 14:50 01/12/24 10:43 Room Air PG Care Time/CCT Total # of Minutes Spent Total Time Spent with Patient: Total time spent is greater than 50% in coordination of care (as documented) at patient's floor/unit and/or counseling patient: Coding Level of Care Code 55232 SUB INP/OBS CARE 2/35MIN Diagnoses Ascites R18.8 Hepatic encephalopathy K76.82 Hypomagnesemia E83.42 Hypokalemia E87.6 Anemia D64.9 Thickened endometrium R93.89 Liver cirrhosis K74.60 Portal hypertension K76.6 Fall W19.XXXA Esophageal varices I85.00 Tobacco use Z72.0
[2024-01-13 07:09] LABS: Albumin Globulin Ratio 0.8 (0.9-2); Albumin Level 2.5 gm/dl (3.4-5.0); BUN Creatinine Ratio 10.7 (10-20); Bilirubin,Total 2.1 mg/dl (0.2-1.0); Calcium 7.8 mg/dl (8.6-10.3); Creatinine Clr Calc Pharmacy 64.3 ml/min; Globulin 3.1 gm/dl (2.5-4.0); Magnesium 1.9 mg/dl (1.7-2.4); Total Protein 5.6 gm/dl (6.0-8.3)
[2024-01-13 07:22] LABS: Basophils # (auto) 0.04 K/uL (0.00-0.20); Basophils % (auto) 0.5 %; Eosinophils # (auto) 0.16 K/uL (0.00-0.50); Eosinophils % (auto) 2.1 %; Hematocrit (blood only) 23.9 % (37.0-47.0); Hemoglobin 8.1 g/dl (12.0-16.0); Immature Granulocytes # (auto) 0.05 K/uL (0.01-0.20); Immature Granulocytes % (auto) 0.7 %; Lymphocytes # (auto) 1.35 K/uL (1.20-3.40); Lymphocytes % (auto) 17.6 %; Mean Corpuscular Hemoglobin 29.5 pg (25.0-34.0); Mean Corpuscular Hgb Conc 33.9 g/dL (32.0-36.0); Mean Corpuscular Volume 86.9 fL (80.0-100.0); Mean Platelet Volume 11.3 fL (9.4-12.4); Monocytes # (auto) 0.88 K/uL (0.11-0.59); Monocytes % (auto) 11.5 %; Neutrophils # (auto) 5.17 K/uL (1.40-6.50); Neutrophils % (auto) 67.6 %; Platelet Count 161 K/uL (130-400); RDW Coefficient of Variation 19.9 % (11.5-14.5); RDW Standard Deviation 63.7 fL (36.4-46.3); Red Blood Count 2.75 M/uL (4.20-5.40); White Blood Count 7.65 K/ul (4.8-10.8)
[2024-01-13 07:31] LABS: INR 1.2 (0.9-1.1); Prothrombin Time 12.8 Seconds (9.0-12.0)
[2024-01-13] MEDS: SPIRONOLACTONE 25 MG TAB PO SCH (08:06)
[2024-01-13] MEDS: LACTULOSE SYRUP 20 GM/30 ML UDC PO SCH (08:06)
[2024-01-13] MEDS: FUROSEMIDE INJ 20 MG/2 ML VIAL IV SCH (08:07)
--- NOTE | 2024-01-13 23:07 | Hospitalist Progress Note ---
Date of Service January 13, 2024 Assessment & Plan (1) Ascites: Plan: Patient presented on 01/10 for abdominal distention, lower back pain, and bilateral wheezing While patient does have a listed history of alcohol abuse, she denies any recent alcohol use or history of heavy alcohol use Inconsistent story when discussing with ED provider; patient also reports that she fell when talking to her ED provider, but denies following on admission Concern for hepatic/metabolic encephalopathy (see below) Moderate to large volume abdominal pelvic ascites noted on A/P CT Also noted cirrhotic liver and diffuse micro nodularity throughout the liver No leukocytosis; afebrile Clinically, low suspicion for SBP; patient does report mild TTP in the RUQ, but abdominal exam is otherwise soft, NTP IR paracentesis ordered for the morning of 01/11 Will start patient on Lasix 20mg IV daily and Spironolactone 50 mg p.o. daily on 01/12 (or sooner pending mag/K repletion) Continuous telemetry monitoring Removed 4 liters of fluid on 01/11 Patient is tolerating spironolactone, lasix Will reorder ammonia level. brandon need to increase lactulose (2) Hepatic encephalopathy: Plan: Patient appears somewhat confused, and is fiddling with telemetry wires and removing telephone strips on arrival Ammonia mildly elevated at 73.0 on arrival Concern for hepatic encephalopathy Trend BMP q4h for now Will plan to start lactulose 20 mg p.o. on the morning of 01/12 (or after sufficient potassium/mag repletion) Monitor for diarrhea and rebound hypokalemia (3) Hypomagnesemia: Plan: Mag 1.4 on arrival Magnesium sulfate 1 g IV x 2 Continue repletion Trend mag (4) Hypokalemia: Plan: Potassium 2.6 on arrival Potassium chloride 80mEq p.o. supplementation Will start patient on potassium chloride supplement 20mEq TID (5) Anemia: Plan: Hgb 9.1 on arrival Patient denies any recent falls/injuries, melena, or blood in her urine or stool Clinically, no signs of active bleeding on physical exam; suspect this may be more gradual MCV WNL at 88.1, but elevated RDW FE panel, transferrin, vitamin B12, and folate ordered, pending ? B12 deficiency Trend CBC (6) Thickened endometrium: Plan: A/P CT on arrival revealed a thickened endometrium Nonemergent follow-up with gynecology is recommended upon discharge (7) Liver cirrhosis: Plan: Noted on A/P CT Treatment (as above) (8) Portal hypertension: Plan: Noted on A/P CT Treatment (as above) (9) Fall: Plan: Patient lives alone She reports that she fell and hurt her ankle on ED arrival However, she denies falling on admission Left ankle x-ray without acute fracture on arrival PT/OT evaluations appreciated Fall precautions (10) Esophageal varices: Plan: Unclear if these are new on A/P CT Rocephin 2000 mg IV q24h (11) Tobacco use: Plan: Patient is a current everyday tobacco cigarette smoker; <1 PPD Nicotine patch daily Continue to encourage cessation Plan [facility] Full [facility] Regular diet VTE PPx: Will hold chemical DVT PPX in the setting of potential paracentesis; SCDs Admission and Anticipated Discharge Date Admission Date: January 11, 2024 Subjective Patient appears confused. She wants to go home, however agrees to looking into a rehab Review of Systems Review of Systems: All systems reviewed & are unremarkable except as noted in HPI & below Physical Exam Physical Exam: NAD HEENT: normocephalic, atraumatic; no scleral icterus; PERRLA; vision and hearing intact Neck: supple; no lymphadenopathy; trachea midline Skin: warm, dry without signs of tenting; Lungs: CTA B/L ABD: Soft; NT/ND Results & Data Results & Data Vital Signs (Past 12 Hours) Vital Signs Temp Pulse Pulse Resp BP Pulse Ox Pulse Ox 01/13/24 19:52 36.7 C 89 20 90/60 L 92 01/13/24 16:00 95 01/13/24 15:47 108 H 01/13/24 11:49 36.8 C 63 18 91/61 L 93 O2 Del Method O2 Del Method 01/13/24 19:52 Room Air 01/13/24 16:00 Room Air 01/13/24 15:47 01/13/24 11:49 Room Air PG Care Time/CCT Total # of Minutes Spent Total Time Spent with Patient: Total time spent is greater than 50% in coordination of care (as documented) at patient's floor/unit and/or counseling patient: Coding Level of Care Code 72810 SUB INP/OBS CARE 2/35MIN Diagnoses Ascites R18.8 Hepatic encephalopathy K76.82 Hypomagnesemia E83.42 Hypokalemia E87.6 Anemia D64.9 Thickened endometrium R93.89 Liver cirrhosis K74.60 Portal hypertension K76.6 Fall W19.XXXA Esophageal varices I85.00 Tobacco use Z72.0
[2024-01-14 06:51] LABS: Basophils # (auto) 0.04 K/uL (0.00-0.20); Basophils % (auto) 0.5 %; Eosinophils # (auto) 0.15 K/uL (0.00-0.50); Eosinophils % (auto) 1.9 %; Hematocrit (blood only) 24.7 % (37.0-47.0); Hemoglobin 8.1 g/dl (12.0-16.0); Immature Granulocytes # (auto) 0.06 K/uL (0.01-0.20); Immature Granulocytes % (auto) 0.8 %; Lymphocytes # (auto) 1.23 K/uL (1.20-3.40); Lymphocytes % (auto) 15.7 %; Mean Corpuscular Hemoglobin 28.9 pg (25.0-34.0); Mean Corpuscular Hgb Conc 32.8 g/dL (32.0-36.0); Mean Corpuscular Volume 88.2 fL (80.0-100.0); Mean Platelet Volume 10.7 fL (9.4-12.4); Monocytes % (auto) 12.8 %; Neutrophils # (auto) 5.33 K/uL (1.40-6.50); Neutrophils % (auto) 68.3 %; Platelet Count 157 K/uL (130-400); RDW Standard Deviation 61.7 fL (36.4-46.3); White Blood Count 7.81 K/ul (4.8-10.8)
[2024-01-14 07:10] LABS: Albumin Globulin Ratio 0.8 (0.9-2); Albumin Level 2.5 gm/dl (3.4-5.0); BUN Creatinine Ratio 10.4 (10-20); Creatinine Clr Calc Pharmacy 60.9 ml/min; Globulin 3.1 gm/dl (2.5-4.0); Potassium 3.5 mmol/L (3.5-5.1); Total Protein 5.6 gm/dl (6.0-8.3)
[2024-01-14] MEDS: LACTULOSE SYRUP 20 GM/30 ML UDC PO SCH (08:27)
--- NOTE | 2024-01-14 22:49 | Hospitalist Progress Note ---
Date of Service January 14, 2024 Assessment & Plan (1) Ascites: Plan: Patient presented on 01/10 for abdominal distention, lower back pain, and bilateral wheezing While patient does have a listed history of alcohol abuse, she denies any recent alcohol use or history of heavy alcohol use Inconsistent story when discussing with ED provider; patient also reports that she fell when talking to her ED provider, but denies following on admission Concern for hepatic/metabolic encephalopathy (see below) Moderate to large volume abdominal pelvic ascites noted on A/P CT Also noted cirrhotic liver and diffuse micro nodularity throughout the liver No leukocytosis; afebrile Clinically, low suspicion for SBP; patient does report mild TTP in the RUQ, but abdominal exam is otherwise soft, NTP IR paracentesis ordered for the morning of 01/11 Will start patient on Lasix 20mg IV daily and Spironolactone 50 mg p.o. daily on 01/12 (or sooner pending mag/K repletion) Continuous telemetry monitoring Removed 4 liters of fluid on 01/11 Patient is tolerating spironolactone, lasix Increased lactulose, ammonia level showed improvement. will monitor stool output. (2) Hepatic encephalopathy: Plan: Patient appears somewhat confused, and is fiddling with telemetry wires and removing telephone strips on arrival Ammonia mildly elevated at 73.0 on arrival Concern for hepatic encephalopathy Trend BMP q4h for now Will plan to start lactulose 20 mg p.o. on the morning of 01/12 (or after sufficient potassium/mag repletion) Monitor for diarrhea and rebound hypokalemia (3) Hypomagnesemia: Plan: Mag 1.4 on arrival Magnesium sulfate 1 g IV x 2 Continue repletion Trend mag (4) Hypokalemia: Plan: Potassium 2.6 on arrival Potassium chloride 80mEq p.o. supplementation Will start patient on potassium chloride supplement 20mEq TID (5) Anemia: Plan: Hgb 9.1 on arrival Patient denies any recent falls/injuries, melena, or blood in her urine or stool Clinically, no signs of active bleeding on physical exam; suspect this may be more gradual MCV WNL at 88.1, but elevated RDW FE panel, transferrin, vitamin B12, and folate ordered, pending ? B12 deficiency (6) Thickened endometrium: Plan: A/P CT on arrival revealed a thickened endometrium Nonemergent follow-up with gynecology is recommended upon discharge (7) Liver cirrhosis: Plan: Noted on A/P CT Treatment (as above) (8) Portal hypertension: Plan: Noted on A/P CT Treatment (as above) (9) Fall: Plan: Patient lives alone She reports that she fell and hurt her ankle on ED arrival However, she denies falling on admission Left ankle x-ray without acute fracture on arrival PT/OT evaluations appreciated Fall precautions (10) Esophageal varices: Plan: Unclear if these are new on A/P CT Rocephin 2000 mg IV q24h (11) Tobacco use: Plan: Patient is a current everyday tobacco cigarette smoker; <1 PPD Nicotine patch daily Continue to encourage cessation Plan [facility] Full [facility] Regular diet VTE PPx: Will hold chemical DVT PPX in the setting of potential paracentesis; SCDs Admission and Anticipated Discharge Date Admission Date: January 11, 2024 Subjective 68 yo female reports no new symptoms. Review of Systems Review of Systems: All systems reviewed & are unremarkable except as noted in HPI & below Physical Exam Physical Exam: NAD HEENT: normocephalic, atraumatic; no scleral icterus; PERRLA; vision and hearing intact Neck: supple; no lymphadenopathy; trachea midline Skin: warm, dry without signs of tenting; Lungs: CTA B/L ABD: Soft; NT/ND Results & Data Results & Data Vital Signs (Past 12 Hours) Vital Signs Temp Pulse Pulse Resp BP BP Pulse Ox 01/14/24 20:07 36.7 C 96 H 20 71/71 L 97 01/14/24 16:00 01/14/24 15:31 37.2 C 98 H 20 110/74 98 01/14/24 15:05 88 01/14/24 12:11 36.8 C 100 H 18 102/72 98 Pulse Ox O2 Del Method O2 Del Method 01/14/24 20:07 Room Air 01/14/24 16:00 95 Room Air 01/14/24 15:31 Room Air 01/14/24 15:05 01/14/24 12:11 Room Air PG Care Time/CCT Total # of Minutes Spent Total Time Spent with Patient: Total time spent is greater than 50% in coordination of care (as documented) at patient's floor/unit and/or counseling patient: Coding Level of Care Code 87392 SUB INP/OBS CARE 2/35MIN Diagnoses Ascites R18.8 Hepatic encephalopathy K76.82 Hypomagnesemia E83.42 Hypokalemia E87.6 Anemia D64.9 Thickened endometrium R93.89 Liver cirrhosis K74.60 Portal hypertension K76.6 Fall W19.XXXA Esophageal varices I85.00 Tobacco use Z72.0
[2024-01-15 06:56] LABS: Hematocrit (blood only) 24.1 % (37.0-47.0); Hemoglobin 7.8 g/dl (12.0-16.0); Mean Corpuscular Hemoglobin 29.2 pg (25.0-34.0); Mean Corpuscular Hgb Conc 32.4 g/dL (32.0-36.0); Mean Corpuscular Volume 90.3 fL (80.0-100.0); Mean Platelet Volume 11.7 fL (9.4-12.4); Platelet Count 151 K/uL (130-400); RDW Coefficient of Variation 18.9 % (11.5-14.5); RDW Standard Deviation 63.5 fL (36.4-46.3); Red Blood Count 2.67 M/uL (4.20-5.40); White Blood Count 6.79 K/ul (4.8-10.8)
[2024-01-15 07:18] LABS: Albumin Globulin Ratio 0.8 (0.9-2); Albumin Level 2.5 gm/dl (3.4-5.0); BUN Creatinine Ratio 9.4 (10-20); Bilirubin,Total 1.8 mg/dl (0.2-1.0); Potassium 3.7 mmol/L (3.5-5.1); Total Protein 5.5 gm/dl (6.0-8.3)
--- NOTE | 2024-01-16 10:16 | Hospitalist Progress Note ---
Date of Service January 15, 2024 Assessment & Plan (1) Ascites: Plan: Patient presented on 01/10 for abdominal distention, lower back pain, and bilateral wheezing While patient does have a listed history of alcohol abuse, she denies any recent alcohol use or history of heavy alcohol use Inconsistent story when discussing with ED provider; patient also reports that she fell when talking to her ED provider, but denies following on admission Concern for hepatic/metabolic encephalopathy (see below) Moderate to large volume abdominal pelvic ascites noted on A/P CT Also noted cirrhotic liver and diffuse micro nodularity throughout the liver No leukocytosis; afebrile Clinically, low suspicion for SBP; patient does report mild TTP in the RUQ, but abdominal exam is otherwise soft, NTP IR paracentesis ordered for the morning of 01/11 Will start patient on Lasix 20mg IV daily and Spironolactone 50 mg p.o. daily on 01/12 (or sooner pending mag/K repletion) Continuous telemetry monitoring Removed 4 liters of fluid on 01/11 Patient is tolerating spironolactone, lasix Increased lactulose, ammonia level showed improvement. will monitor stool output. awaiting placement reviewed BMP on 01/14 (2) Hepatic encephalopathy: Plan: Patient appears somewhat confused, and is fiddling with telemetry wires and removing telephone strips on arrival Ammonia mildly elevated at 73.0 on arrival Concern for hepatic encephalopathy Trend BMP q4h for now Will plan to start lactulose 20 mg p.o. on the morning of 01/12 (or after sufficient potassium/mag repletion) Monitor for diarrhea and rebound hypokalemia (3) Hypomagnesemia: Plan: Mag 1.4 on arrival Magnesium sulfate 1 g IV x 2 Continue repletion Trend mag (4) Hypokalemia: Plan: Potassium 2.6 on arrival Potassium chloride 80mEq p.o. supplementation Will start patient on potassium chloride supplement 20mEq TID (5) Anemia: Plan: Hgb 9.1 on arrival Patient denies any recent falls/injuries, melena, or blood in her urine or stool Clinically, no signs of active bleeding on physical exam; suspect this may be more gradual MCV WNL at 88.1, but elevated RDW FE panel, transferrin, vitamin B12, and folate ordered, pending ? B12 deficiency (6) Thickened endometrium: Plan: A/P CT on arrival revealed a thickened endometrium Nonemergent follow-up with gynecology is recommended upon discharge (7) Liver cirrhosis: Plan: Noted on A/P CT Treatment (as above) (8) Portal hypertension: Plan: Noted on A/P CT Treatment (as above) (9) Fall: Plan: Patient lives alone She reports that she fell and hurt her ankle on ED arrival However, she denies falling on admission Left ankle x-ray without acute fracture on arrival PT/OT evaluations appreciated Fall precautions (10) Esophageal varices: Plan: Unclear if these are new on A/P CT Rocephin 2000 mg IV q24h (11) Tobacco use: Plan: Patient is a current everyday tobacco cigarette smoker; <1 PPD Nicotine patch daily Continue to encourage cessation Plan Disposition: Admit to [facility]metry Full code Regular diet VTE PPx: Will hold chemical DVT PPX in the setting of potential paracentesis; SCDs Admission and Anticipated Discharge Date Admission Date: January 11, 2024 Subjective 68 yo female reports no new symptoms. Review of Systems Review of Systems: All systems reviewed & are unremarkable except as noted in HPI & below Physical Exam Physical Exam: NAD HEENT: normocephalic, atraumatic; no scleral icterus; PERRLA; vision and hearing intact Neck: supple; no lymphadenopathy; trachea midline Skin: warm, dry without signs of tenting; Lungs: CTA B/L ABD: Soft; NT/ND Results & Data Results & Data Vital Signs (Past 12 Hours) Vital Signs Temp Pulse Pulse Resp BP Pulse Ox O2 Del Method 01/16/24 08:14 Room Air 01/16/24 07:43 77 01/16/24 07:23 36.6 C 84 16 101/67 100 Room Air 01/16/24 04:02 36.7 C 83 16 125/83 99 Room Air 01/15/24 23:47 37.1 C 100 H 16 117/82 100 Room Air PG Care Time/CCT Total # of Minutes Spent Total Time Spent with Patient: Total time spent is greater than 50% in coordination of care (as documented) at patient's floor/unit and/or counseling patient: Coding Level of Care Code 30611 SUB INP/OBS CARE 2/35MIN Diagnoses Ascites R18.8 Hepatic encephalopathy K76.82 Hypomagnesemia E83.42 Hypokalemia E87.6 Anemia D64.9 Thickened endometrium R93.89 Liver cirrhosis K74.60 Portal hypertension K76.6 Fall W19.XXXA Esophageal varices I85.00 Tobacco use Z72.0
[2024-01-16 10:46] LABS: Hematocrit (blood only) 23.6 % (37.0-47.0); Hemoglobin 7.8 g/dl (12.0-16.0); Mean Corpuscular Hemoglobin 29.1 pg (25.0-34.0); Mean Corpuscular Hgb Conc 33.1 g/dL (32.0-36.0); Mean Corpuscular Volume 88.1 fL (80.0-100.0); Mean Platelet Volume 11.4 fL (9.4-12.4); Platelet Count 168 K/uL (130-400); RDW Coefficient of Variation 18.8 % (11.5-14.5); RDW Standard Deviation 61.2 fL (36.4-46.3); Red Blood Count 2.68 M/uL (4.20-5.40); White Blood Count 7.03 K/ul (4.8-10.8)
[2024-01-16 11:14] LABS: Albumin Globulin Ratio 0.8 (0.9-2); Albumin Level 2.5 gm/dl (3.4-5.0); BUN Creatinine Ratio 8.9 (10-20); Bilirubin,Total 1.7 mg/dl (0.2-1.0); Calcium 7.8 mg/dl (8.6-10.3); Creatinine Clr Calc Pharmacy 58.6 ml/min; Potassium 2.9 mmol/L (3.5-5.1); Total Protein 5.5 gm/dl (6.0-8.3)
[2024-01-16 11:22] LABS: INR 1.2 (0.9-1.1); Prothrombin Time 12.8 Seconds (9.0-12.0)
[2024-01-16] MEDS: POTASSIUM CHLORIDE 20 MEQ/15 ML UDC PO STA (21:41)
--- NOTE | 2024-01-16 22:48 | Hospitalist Progress Note ---
Date of Service January 16, 2024 Assessment & Plan (1) Ascites: Plan: Patient presented on 01/10 for abdominal distention, lower back pain, and bilateral wheezing While patient does have a listed history of alcohol abuse, she denies any recent alcohol use or history of heavy alcohol use Inconsistent story when discussing with ED provider; patient also reports that she fell when talking to her ED provider, but denies following on admission Concern for hepatic/metabolic encephalopathy (see below) Moderate to large volume abdominal pelvic ascites noted on A/P CT Also noted cirrhotic liver and diffuse micro nodularity throughout the liver No leukocytosis; afebrile Clinically, low suspicion for SBP; patient does report mild TTP in the RUQ, but abdominal exam is otherwise soft, NTP IR paracentesis ordered for the morning of 01/11 Will start patient on Lasix 20mg IV daily and Spironolactone 50 mg p.o. daily on 01/12 (or sooner pending mag/K repletion) Continuous telemetry monitoring Removed 4 liters of fluid on 01/11 Patient is tolerating spironolactone, lasix Increased lactulose, ammonia level showed improvement. will monitor stool output. awaiting placement reviewed BMP on 01/15 Plan for possible repeat paracenthesis on 01/17 (2) Hepatic encephalopathy: Plan: Patient appears somewhat confused, and is fiddling with telemetry wires and removing telephone strips on arrival Ammonia mildly elevated at 73.0 on arrival Concern for hepatic encephalopathy Trend BMP q4h for now Will plan to start lactulose 20 mg p.o. on the morning of 01/12 (or after sufficient potassium/mag repletion) Monitor for diarrhea and rebound hypokalemia (3) Hypomagnesemia: Plan: Mag 1.4 on arrival Magnesium sulfate 1 g IV x 2 Continue repletion Trend mag (4) Hypokalemia: Plan: Potassium 2.6 on arrival Potassium chloride 80mEq p.o. supplementation Will start patient on potassium chloride supplement 20mEq TID (5) Anemia: Plan: Hgb 9.1 on arrival Patient denies any recent falls/injuries, melena, or blood in her urine or stool Clinically, no signs of active bleeding on physical exam; suspect this may be more gradual MCV WNL at 88.1, but elevated RDW FE panel, transferrin, vitamin B12, and folate ordered, pending ? B12 deficiency (6) Thickened endometrium: Plan: A/P CT on arrival revealed a thickened endometrium Nonemergent follow-up with gynecology is recommended upon discharge (7) Liver cirrhosis: Plan: Noted on A/P CT Treatment (as above) (8) Portal hypertension: Plan: Noted on A/P CT Treatment (as above) (9) Fall: Plan: Patient lives alone She reports that she fell and hurt her ankle on ED arrival However, she denies falling on admission Left ankle x-ray without acute fracture on arrival PT/OT evaluations appreciated Fall precautions (10) Esophageal varices: Plan: Unclear if these are new on A/P CT Rocephin 2000 mg IV q24h (11) Tobacco use: Plan: Patient is a current everyday tobacco cigarette smoker; <1 PPD Nicotine patch daily Continue to encourage cessation Plan [facility] Full [facility] Regular diet VTE PPx: Will hold chemical DVT PPX in the setting of potential paracentesis; SCDs Admission and Anticipated Discharge Date Admission Date: January 11, 2024 Subjective Patient reports no new symptoms. Review of Systems Review of Systems: All systems reviewed & are unremarkable except as noted in HPI & below Physical Exam Physical Exam: NAD HEENT: normocephalic, atraumatic; no scleral icterus; PERRLA; vision and hearing intact Neck: supple; no lymphadenopathy; trachea midline Skin: warm, dry without signs of tenting; Lungs: CTA B/L ABD: Soft; NT/ND Results & Data Results & Data Vital Signs (Past 12 Hours) Vital Signs Temp Pulse Pulse Resp BP Pulse Ox Pulse Ox 01/16/24 19:48 36.8 C 93 H 18 96/58 L 100 01/16/24 16:00 100 01/16/24 15:35 37.0 C 93 H 18 99/63 L 100 01/16/24 15:33 89 01/16/24 11:54 36.6 C 87 18 95/55 L 100 O2 Del Method O2 Del Method 01/16/24 19:48 Room Air 01/16/24 16:00 Room Air 01/16/24 15:35 Room Air 01/16/24 15:33 01/16/24 11:54 Room Air PG Care Time/CCT Total # of Minutes Spent Total Time Spent with Patient: Total time spent is greater than 50% in coordination of care (as documented) at patient's floor/unit and/or counseling patient: Coding Level of Care Code 29943 SUB INP/OBS CARE 235MIN Diagnoses Ascites R18.8 Hepatic encephalopathy K76.82 Hypomagnesemia E83.42 Hypokalemia E87.6 Anemia D64.9 Thickened endometrium R93.89 Liver cirrhosis K74.60 Portal hypertension K76.6 Fall W19.XXXA Esophageal varices I85.00 Tobacco use Z72.0
[2024-01-17 06:18] LABS: Hematocrit (blood only) 22.8 % (37.0-47.0); Hemoglobin 7.7 g/dl (12.0-16.0); Mean Corpuscular Hemoglobin 28.9 pg (25.0-34.0); Mean Corpuscular Hgb Conc 33.8 g/dL (32.0-36.0); Mean Corpuscular Volume 85.7 fL (80.0-100.0); Mean Platelet Volume 11.1 fL (9.4-12.4); Platelet Count 165 K/uL (130-400); RDW Coefficient of Variation 18.6 % (11.5-14.5); RDW Standard Deviation 58.9 fL (36.4-46.3); Red Blood Count 2.66 M/uL (4.20-5.40); White Blood Count 7.45 K/ul (4.8-10.8)
[2024-01-17 06:44] LABS: Albumin Globulin Ratio 0.9 (0.9-2); Albumin Level 2.5 gm/dl (3.4-5.0); BUN Creatinine Ratio 11.4 (10-20); Bilirubin,Total 1.6 mg/dl (0.2-1.0); Calcium 8.1 mg/dl (8.6-10.3); Creatinine Clr Calc Pharmacy 54.2 ml/min; Globulin 2.9 gm/dl (2.5-4.0); Potassium 4.1 mmol/L (3.5-5.1); Total Protein 5.4 gm/dl (6.0-8.3)
[2024-01-17] MEDS: PROCHLORPERAZINE 5 MG in SYRINGE 4 ML IV ONE (13:55)
--- NOTE | 2024-01-18 06:47 | Hospitalist Progress Note ---
Date of Service January 17, 2024 Assessment & Plan (1) Ascites: Plan: Patient presented on 01/10 for abdominal distention, lower back pain, and bilateral wheezing While patient does have a listed history of alcohol abuse, she denies any recent alcohol use or history of heavy alcohol use Inconsistent story when discussing with ED provider; patient also reports that she fell when talking to her ED provider, but denies following on admission Concern for hepatic/metabolic encephalopathy (see below) Moderate to large volume abdominal pelvic ascites noted on A/P CT Also noted cirrhotic liver and diffuse micro nodularity throughout the liver No leukocytosis; afebrile Clinically, low suspicion for SBP; patient does report mild TTP in the RUQ, but abdominal exam is otherwise soft, NTP IR paracentesis ordered for the morning of 01/11 Will start patient on Lasix 20mg IV daily and Spironolactone 50 mg p.o. daily on 01/12 (or sooner pending mag/K repletion) Continuous telemetry monitoring Removed 4 liters of fluid on 01/11 Patient is tolerating spironolactone, lasix Lactulose TID, ammonia level showed improvement. will monitor stool output. awaiting placement reviewed BMP on 01/16 Plan for possible repeat paracenthesis on 01/17 (2) Hepatic encephalopathy: Plan: Patient appears somewhat confused, and is fiddling with telemetry wires and removing telephone strips on arrival Ammonia mildly elevated at 73.0 on arrival Concern for hepatic encephalopathy Trend BMP q4h for now Will plan to start lactulose 20 mg p.o. on the morning of 01/12 (or after sufficient potassium/mag repletion) Monitor for diarrhea and rebound hypokalemia (3) Hypomagnesemia: Plan: Mag 1.4 on arrival Magnesium sulfate 1 g IV x 2 Continue repletion Trend mag (4) Hypokalemia: Plan: Potassium 2.6 on arrival Potassium chloride 80mEq p.o. supplementation Will start patient on potassium chloride supplement 20mEq TID (5) Anemia: Plan: Hgb 9.1 on arrival Patient denies any recent falls/injuries, melena, or blood in her urine or stool Clinically, no signs of active bleeding on physical exam; suspect this may be more gradual MCV WNL at 88.1, but elevated RDW FE panel, transferrin, vitamin B12, and folate ordered, pending ? B12 deficiency (6) Thickened endometrium: Plan: A/P CT on arrival revealed a thickened endometrium Nonemergent follow-up with gynecology is recommended upon discharge (7) Liver cirrhosis: Plan: Noted on A/P CT Treatment (as above) (8) Portal hypertension: Plan: Noted on A/P CT Treatment (as above) (9) Fall: Plan: Patient lives alone She reports that she fell and hurt her ankle on ED arrival However, she denies falling on admission Left ankle x-ray without acute fracture on arrival PT/OT evaluations appreciated Fall precautions (10) Esophageal varices: Plan: Unclear if these are new on A/P CT Rocephin 2000 mg IV q24h (11) Tobacco use: Plan: Patient is a current everyday tobacco cigarette smoker; <1 PPD Nicotine patch daily Continue to encourage cessation Plan Disposition: Admit to [facility] telemetry Full code Regular diet VTE PPx: Will hold chemical DVT PPX in the setting of potential paracentesis; SCDs Admission and Anticipated Discharge Date Admission Date: January 11, 2024 Subjective Patient's only complaint today was nausea. Review of Systems Review of Systems: All systems reviewed & are unremarkable except as noted in HPI & below Physical Exam Physical Exam: NAD HEENT: normocephalic, atraumatic; no scleral icterus; Neck: supple; no lymphadenopathy; trachea midline Skin: warm, dry without signs of tenting; Lungs: CTA B/L ABD: Soft; NT/ND Results & Data Results & Data Vital Signs (Past 12 Hours) Vital Signs Temp Pulse Pulse Resp BP Pulse Ox O2 Del Method 01/18/24 03:40 37.0 C 80 16 94/58 L 97 Room Air 01/17/24 23:33 36.8 C 85 16 95/63 L 98 Room Air 01/17/24 21:54 95 H 01/17/24 19:58 37.0 C 81 18 97/58 L 98 Room Air 01/17/24 19:14 Room Air PG Care Time/CCT Total # of Minutes Spent Total Time Spent with Patient: Total time spent is greater than 50% in coordination of care (as documented) at patient's floor/unit and/or counseling patient: Coding Level of Care Code 92536 SUB INP/OBS CARE 2/35MIN Diagnoses Ascites R18.8 Hepatic encephalopathy K76.82 Hypomagnesemia E83.42 Hypokalemia E87.6 Anemia D64.9 Thickened endometrium R93.89 Liver cirrhosis K74.60 Portal hypertension K76.6 Fall W19.XXXA Esophageal varices I85.00 Tobacco use Z72.0
[2024-01-18 07:41] LABS: Hematocrit (blood only) 25.4 % (37.0-47.0); Hemoglobin 8.3 g/dl (12.0-16.0); Mean Corpuscular Hemoglobin 28.9 pg (25.0-34.0); Mean Corpuscular Hgb Conc 32.7 g/dL (32.0-36.0); Mean Corpuscular Volume 88.5 fL (80.0-100.0); Mean Platelet Volume 10.8 fL (9.4-12.4); Platelet Count 199 K/uL (130-400); RDW Coefficient of Variation 18.2 % (11.5-14.5); RDW Standard Deviation 58.8 fL (36.4-46.3); Red Blood Count 2.87 M/uL (4.20-5.40); White Blood Count 9.14 K/ul (4.8-10.8)
[2024-01-18 07:47] LABS: Albumin Globulin Ratio 0.8 (0.9-2); Albumin Level 2.7 gm/dl (3.4-5.0); BUN Creatinine Ratio 12.6 (10-20); Bilirubin,Total 1.9 mg/dl (0.2-1.0); Calcium 8.5 mg/dl (8.6-10.3); Creatinine Clr Calc Pharmacy 51.3 ml/min; Globulin 3.2 gm/dl (2.5-4.0); Potassium 4.2 mmol/L (3.5-5.1); Total Protein 5.9 gm/dl (6.0-8.3)
[2024-01-18 09:17] LABS: Magnesium 1.5 mg/dl (1.7-2.4)
[2024-01-18] MEDS: PANTOprazole 40 MG TAB PO SCH (10:12)
[2024-01-18] MEDS: MAGNESIUM SULFATE / D5W 1 GM/100 ML BAG IV SCH (10:39)
[2024-01-18] MEDS: ACETAMINOPHEN 500 MG TAB PO ONE (14:23)
[2024-01-18] MEDS: LIDOCAINE 5% 1 PATCH TD STA (15:25)
--- NOTE | 2024-01-18 18:02 | Hospitalist Progress Note ---
Date of Service January 18, 2024 Assessment & Plan (1) Ascites: Plan: s/p paracentesis 01/12/24 with 4 L of fluid removed fluid was transudative by fluid analysis no evidence of SBP SAAG >1.2 c/w portal HTN since 01/12 has been receiving IV lasix & aldactone with stable BMPs remains on lactulose TID patient declines repeat paracentesis today etiology of cirrhosis?? pt denies h/o heavy alcohol abuse check HepB, HepC titers doubt MASH/GRIFFITH but can't rule it out change lasix IV to PO lasix 40mg qam ultimately titrate aldactone to 100mg daily if BPs will allow start nonselective BB for portal HTN imaging this admission showed evidence of esophageal varices will need outpatient GI referral and surveillance EGD will be needed (2) Hepatic encephalopathy: Plan: Ammonia mildly elevated at 73.0 on arrival s/p lactulose since admission with improved mentation and improved ammonia levels titrate lactulose for 3 BMs/day (3) Hypomagnesemia: Plan: mag low again this am replete with mag sulfate 3 grams IV repeat level am (4) Hypokalemia: Plan: Potassium 2.6 on arrival s/p replacement with improved levels BMP am (5) Anemia: Plan: B12/folate wnl Ferritin 57 transferrin sat 27%, however although latter is normal the ferritin is low end of normal would add iron supplementation once daily (6) Thickened endometrium: Plan: A/P CT on arrival revealed a thickened endometrium Nonemergent follow-up with gynecology is recommended upon discharge will inform patient of this finding (7) Liver cirrhosis: Plan: see #1 above (8) Portal hypertension: Plan: as noted on admission CT a/p see #1 above (9) Fall: Plan: Patient lives alone She reports that she fell and hurt her ankle on ED arrival Left ankle x-ray without acute fracture on arrival PT/OT evaluations appreciated Fall precautions rehab advised; referrals have been made to local SNFs (10) Esophageal varices: Plan: will need outpatient surveillance EGD ideally low-dose nadalol or inderal should be started if BPs can tolerate add PPI once daily (11) Tobacco use: Plan: Nicotine patch daily Continue to encourage cessation Plan change diet to low salt dispo - SNF vs home but ideally the former Admission and Anticipated Discharge Date Admission Date: January 11, 2024 Subjective patient complains that her disposition is taking too long asks why "the paramedics haven't come to take her to rehab" she states that if she has to wait much longer she just wants to go home reports having a cat at home and she doesn't have family locally to check on the cat is originally from [place] states she has "burning" in her upper throat periodically and some occasional nausea denies abd pain doesn't think she needs another paracentesis denies any dyspnea Review of Systems Review of Systems: gen - reports fatigue cv - no chest pain pulm - no dyspnea or [facility] - no vomiting; moving her bowels Physical Exam Physical Exam: gen - looks chronically unwell, but NAD neck - no JVD mouth - MMM heart - RRR, s1 s2 lungs - CTA b/l abd - distended with ascites (moderate), BS+, NT, no HSM ext - no edema, pulses feet 2+ b/l neuro - no asterixis psych - awake, alert skin - tattoo on upper chest Results & Data Results & Data Vital Signs (Past 12 Hours) Vital Signs Temp Pulse Pulse Resp BP Pulse Ox O2 Del Method 01/18/24 15:56 37.2 C 105 H 16 90/52 L 93 Room Air 01/18/24 11:37 36.7 C 72 16 102/67 97 Room Air 01/18/24 08:41 Room Air 01/18/24 07:55 36.7 C 97 H 20 101/69 98 Room Air 01/18/24 07:37 87 Laboratory Results Laboratory Results - last 24 hr 01/18/24 07:17 WBC 9.14 RBC 2.87 L Hgb 8.3 L Hct 25.4 L MCV 88.5 MCH 28.9 MCHC 32.7 RDW Std Deviation 58.8 H RDW Coeff of Liam 18.2 H Plt Count 199 MPV 10.8 Sodium 133 L Potassium 4.2 Chloride 106 Carbon Dioxide 23 Anion Gap 4 BUN 12 Creatinine 0.95 Est Cr Clr Drug Dosing 51.3 eGFR 65.67 BUN/Creatinine Ratio 12.6 Glucose 94 Calcium 8.5 L Magnesium 1.5 L Total Bilirubin 1.9 H AST 65 H ALT 29 Alkaline Phosphatase 116 H Total Protein 5.9 L Albumin 2.7 L Globulin 3.2 Albumin/Globulin Ratio 0.8 L PG Care Time/CCT Total # of Minutes Spent Total Time Spent with Patient: Total time spent is greater than 50% in coordination of care (as documented) at patient's floor/unit and/or counseling patient: Coding Level of Care Code 90991 SUB INP/OBS CARE 3/50MIN Diagnoses Ascites R18.8 Hepatic encephalopathy K76.82 Hypomagnesemia E83.42 Hypokalemia E87.6 Anemia D64.9 Thickened endometrium R93.89 Liver cirrhosis K74.60 Portal hypertension K76.6 Fall W19.XXXA Esophageal varices I85.00 Tobacco use Z72.0
[2024-01-19 07:24] LABS: BUN Creatinine Ratio 11.1 (10-20); Calcium 8.1 mg/dl (8.6-10.3); Potassium 4.2 mmol/L (3.5-5.1)
[2024-01-19] MEDS: LACTULOSE SYRUP 20 GM/30 ML UDC PO SCH (08:39)
[2024-01-19] MEDS: FUROSEMIDE 40 MG TAB PO SCH (08:40)
[2024-01-19 08:49] LABS: Hep B Surface Ag with confirm Negative (Negative)
[2024-01-19 08:54] LABS: Hep C Ab Rflx HepCQuant RNA Negative (Negative)
[2024-01-19] MEDS ORDERED: ACETAMINOPHEN 325 MG TAB PO PRN (14:25)
--- NOTE | 2024-01-19 14:26 | Hospitalist Progress Note ---
Date of Service January 19, 2024 Assessment & Plan (1) Wound of left ankle: Plan: s/p ORIF for L ankle fracture about 5 years ago - [facility] non-healing wounds both medially and laterally since that surgery the lateral ankle wounds are worse with foul-smelling, purulent drainage particularly from two tiny ulcerations previous ankle x-rays L ankle without obvious signs of osteomyelitis will obtain MRI left ankle w/ and w/o contrast - r/o osteo, other pathology wound cx sent from lateral ankle today obtained blood cx's x 2 sets sed rate/crp noted will start cefepime/daptomycin IV while awaiting cultures will involve orthopedics or podiatry for these non-healing wounds dressings - aquacel ag with optifoams for now (2) Ascites: Plan: s/p paracentesis 01/12/24 with 4 L of fluid removed fluid was transudative by fluid analysis no evidence of SBP SAAG >1.2 c/w portal HTN since 01/12 has been receiving IV lasix & aldactone with stable BMPs remains on lactulose TID patient declined repeat paracentesis yesterday etiology of cirrhosis?? pt denies h/o heavy alcohol abuse check HepB, HepC titers doubt MASH/GRIFFITH but can't rule it out if BPs will allow start nonselective BB for portal HTN imaging this admission showed evidence of esophageal varices will need outpatient GI referral and surveillance EGD will be needed PPI in meantime I held pt's aldactone & lasix today due to rising creatinine repeat labs am (3) Hepatic encephalopathy: Plan: Ammonia mildly elevated at 73.0 on arrival s/p lactulose since admission with improved mentation and improved ammonia levels titrate lactulose for 3 BMs/day (4) Hypomagnesemia: Plan: repleted resolved (5) Hypokalemia: Plan: Potassium 2.6 on arrival s/p replacement with improved levels BMP am (6) Anemia: Plan: B12/folate wnl Ferritin 57 transferrin sat 27%, however although latter is normal the ferritin is low end of normal would add iron supplementation once daily (7) Thickened endometrium: Plan: A/P CT on arrival revealed a thickened endometrium Nonemergent follow-up with gynecology is recommended upon discharge (8) Liver cirrhosis: Plan: see #1 above (9) Portal hypertension: Plan: as noted on admission CT a/p see #1 above (10) Fall: Plan: Patient lives alone She reports that she fell and hurt her ankle on ED arrival Left ankle x-ray without acute fracture on arrival PT/OT evaluations appreciated Fall precautions rehab advised; referrals have been made to local SNFs (11) Esophageal varices: Plan: will need outpatient surveillance EGD ideally low-dose nadalol or inderal should be started if BPs can tolerate added PPI once daily (12) Tobacco use: Plan: Nicotine patch daily Continue to encourage cessation Plan dispo - SNF vs home but ideally the former Admission and Anticipated Discharge Date Admission Date: January 11, 2024 Subjective patient c/o worsening drainage in her left ankle yesterday she did not allow me to look at her wounds (covered w/ optifoams) but she is agreeable to letting me examine them today had an ankle fracture about 5 years ago while living in [place], [place] had ORIF at the [facility] has had non-healing wounds since the original surgery there is always some drainage, but it is worse now she does have mild pain in the ankle denies any right ankle symptoms denies abd pain today some nausea on occasion no vomiting eating fair Review of Systems Review of Systems: gen - no fevers or chills cv - no cp, no orthopnea pulm - no dyspnea at rest Physical Exam Physical Exam: gen - looks chronically unwell, thin, but NAD neck - no JVD mouth - MMM heart - RRR, s1 s2, no murmur lungs - CTA b/l abd - distended with ascites (mild-moderate --> no change from yesterday's exam), BS+, NT, no HSM ext - no edema, pulses feet 2+ b/l skin - tattoo on upper chest; left ankle - optifoams removed - purulent, foul- odor present; lateral ankle - 3 tiny ulcers, each 2-3mm in diameter, present lateral malleolus region; the 2 more distal holes are draining purulent fluid; there is no surrounding cellulitis; medial ankle on left - 2 small ulcers/holes, also draining tiny amount of fluid; again no cellulitis medially; she is tender in this region with examination; right ankle free of any ulcerations Results & Data Results & Data Vital Signs (Past 12 Hours) Vital Signs Temp Pulse Pulse Resp BP Pulse Ox O2 Del Method 01/19/24 11:32 37.2 C 104 H 17 107/71 99 Room Air 01/19/24 07:49 36.8 C 93 H 18 112/76 100 Room Air 01/19/24 07:21 91 H 01/19/24 02:47 36.7 C 93 H 18 114/73 100 Room Air Laboratory Results Laboratory Results - last 24 hr 01/19/24 01/19/24 06:33 14:41 ESR 19 Sodium 132 L Potassium 4.2 Chloride 107 Carbon Dioxide 21 Anion Gap 4 BUN 14 Creatinine 1.26 H D Est Cr Clr Drug Dosing 39.0 eGFR 46.79 BUN/Creatinine Ratio 11.1 Glucose 85 Calcium 8.1 L Magnesium 1.9 C-Reactive Protein 0.73 H Hep Bs Antigen Negative Hepatitis C Antibody Negative PG Care Time/CCT Total # of Minutes Spent Total Time Spent with Patient: Total time spent is greater than 50% in coordination of care (as documented) at patient's floor/unit and/or counseling patient: Coding Level of Care Code 91410 SUB INP/OBS CARE 3/50MIN Diagnoses Wound of left ankle S91.002A Ascites R18.8 Hepatic encephalopathy K76.82 Hypomagnesemia E83.42 Hypokalemia E87.6 Anemia D64.9 Thickened endometrium R93.89 Liver cirrhosis K74.60 Portal hypertension K76.6 Fall W19.XXXA Esophageal varices I85.00 Tobacco use Z72.0
--- NOTE | 2024-01-19 15:18 | XCELERA ---
[id number]
[2024-01-19] MEDS: DAPTOmycin 225 MG in SYRINGE 0 ML IV SCH (18:23)
[2024-01-19] MEDS: CEFEPIME 2000MG 2,000 MG/20 ML SYR IV SCH (18:23)
[2024-01-19] MEDS: oxyCODONE HCL IR 5 MG TAB (IMMEDIATE RELEASE) PO PRN (19:27)
[2024-01-19] MEDS: GADOBUTROL 65ML VIAL IV ONE (21:04)
[2024-01-19] MEDS: traMADol HCL 50 MG TABLET PO STA (22:26)
[2024-01-20] MEDS: LIDOCAINE 5% 1 PATCH TD STA (00:20)
[2024-01-20] MEDS: ACETAMINOPHEN 500 MG TAB PO STA (00:21)
--- NOTE | 2024-01-20 04:46 | Magnetic Resonance Report ---
Exam(s): MRI LEFT ANKLE W/WO Contrast IV Amt: 5.5cc gadavist EXAM: MR Left Lower Extremity Without and With Intravenous Contrast, Ankle CLINICAL HISTORY: Reason for exam: h/o ORIF tibfib Fx's;chronic drainage med/lat ankl. TECHNIQUE: Multiplanar magnetic resonance images of the left ankle without and with intravenous contrast. CONTRAST: Patient received 5.5cc gadavist of IV contrast COMPARISON: No relevant prior studies available. FINDINGS: Status-post ORIF of the ankle with lateral plate + screw fixation. Syndesmotic fixation is also present. No drainable fluid collection or abscess. Magnetic susceptibility artifact limits evaluation for osteomyelitis however, there is no MR evidence of osteomyelitis at this time. As per history, there is drainage to the medial and lateral ankle, which should be correlated with physical exam. Mild synovitis in sinus tarsi. Intact tibiotalar joint. Intact medial flexor tendons, lateral peroneal tendons, and anterior extensor tendons. Normal syndesmotic ligaments. No acute ankle sprain. IMPRESSION: Status-post ORIF of the ankle with lateral plate + screw fixation. Syndesmotic fixation is also present. No drainable fluid collection or abscess. Magnetic susceptibility artifact limits evaluation for osteomyelitis however, there is no MR evidence of osteomyelitis at this time. As per history, there is drainage to the medial and lateral ankle, which should be correlated with physical exam. Electronically signed by: Oswald Ellsworth MD 01/20/24 04:45 AM
[2024-01-20 07:13] LABS: Hematocrit (blood only) 22.6 % (37.0-47.0); Hemoglobin 7.4 g/dl (12.0-16.0); Mean Corpuscular Hgb Conc 32.7 g/dL (32.0-36.0); Mean Corpuscular Volume 88.6 fL (80.0-100.0); Mean Platelet Volume 10.4 fL (9.4-12.4); Platelet Count 181 K/uL (130-400); Red Blood Count 2.55 M/uL (4.20-5.40); White Blood Count 7.83 K/ul (4.8-10.8)
[2024-01-20 07:50] LABS: BUN Creatinine Ratio 15.2 (10-20); Calcium 8.1 mg/dl (8.6-10.3); Creatinine Clr Calc Pharmacy 46.8 ml/min; Potassium 3.8 mmol/L (3.5-5.1)
[2024-01-20] MEDS ORDERED: SODIUM CHLORIDE 0.9% 100 ML IV PRN (11:04)
--- NOTE | 2024-01-20 11:08 | Hospitalist Progress Note ---
Date of Service January 20, 2024 Assessment & Plan (1) Wound of left ankle: Plan: s/p ORIF for L ankle fracture about 5 years ago - [facility] non-healing wounds both medially and laterally since that surgery the lateral ankle wounds are worse with foul-smelling, purulent drainage particularly from two tiny ulcerations wound cx from the lateral wound is growing staph remains on cefepime/daptomycin blood cx's are negative previous ankle x-rays L ankle without obvious signs of osteomyelitis MRI left ankle w/ and w/o contrast - no obvious osteomyelitis or other pathology further, sed rate/crp not elevated dressings for tiny wounds - aquacel ag with optifoams for now I consulted Dr Merida from podiatry - he reports that the hardware from the prior ORIF likely needs to be removed as 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 pt denies h/o heavy alcohol abuse HepB, HepC titers negative doubt MASH/GRIFFITH but can't rule it out if BPs will allow start nonselective BB for portal HTN imaging this admission showed evidence of esophageal varices will need outpatient GI referral and surveillance EGD will be needed PPI in meantime adding sucralfate due to ongoing GI upset I held pt's aldactone & lasix yesterday due to rising creatinine Labs are improved/stable this am - thus, will resume at 40mg of lasix & 100mg of aldactone, respectively will give additional dose of lasix following PRBCs (3) Hepatic encephalopathy: Plan: Ammonia mildly elevated at 73.0 on arrival s/p lactulose since admission with improved mentation and improved ammonia levels titrate lactulose for 3 BMs/day (4) Hypomagnesemia: Plan: repleted resolved (5) Hypokalemia: Plan: Potassium 2.6 on arrival s/p replacement with improved levels BMP am (6) Anemia: Plan: B12/folate wnl Ferritin 57 transferrin sat 27%, however although latter is normal the ferritin is low end of normal add iron supplementation once daily with low-normal BPs and fatigue - in light of Hb of 7.4 today - obtained consent for PRBCs and ordered 1 unit plan lasix at conclusion of PRBCs repeat CBC am (7) Thickened endometrium: Plan: A/P CT on arrival revealed a thickened endometrium Nonemergent follow-up with gynecology is recommended upon discharge (8) Liver cirrhosis: Plan: see above (9) Portal hypertension: Plan: as noted on admission CT a/p see above (10) Fall: Plan: Patient lives alone She reports that she fell and hurt her ankle on ED arrival Left ankle x-ray without acute fracture on arrival PT/OT evaluations appreciated Fall precautions rehab advised; referrals have been made to local SNFs patient today complaining of severe back pain prior CT a/p did not show any lumbar spine pathology most of her pain today is likely muscular but cannot rule out bony cause from the thoracic spine will obtain CT thoracic spine - r/o compression fracture will obtain CTA chest as her pain encompasses a large portion of the entire back (11) Esophageal varices: Plan: will need outpatient surveillance EGD ideally low-dose nadalol or inderal should be started if BPs can tolerate added PPI once daily (12) Tobacco use: Plan: Nicotine patch daily Continue to encourage cessation (13) Back pain: Plan: check t-spine CT - r/o compression fracture check CTA chest - r/o PE, etc. change oxycodone to 7.5mg q6h (5mg not helpful) baclofen 5mg po x 1 now for muscle relaxation cont heating pad Plan dispo - SNF episodes of tinnitus with ear pain then back pain - uncertain etiology will work this up further in a couple of days very complex care coordination in light of need for PRBCs, coordination of care with podiatry, w/u of back pain, etc time 80 minutes Admission and Anticipated Discharge Date Admission Date: January 11, 2024 Subjective tele overnight wnl patient reports that her back is very sore states it is both in the upper portion & lower portion across the entire diameter of the back states it started when she got in the hospital blames it on the uncomfortable bed however, she then states that any time she shops at the grocery store she will develop severe tinnitus, followed by pain in her ears, followed by severe back pain she then has to stop walking because of the back pain and the "sr. payroll manager has to bring her out to her car" denies any current tinnitus or ear complaints today while talking about the above she starts to cry, then develops tachypnea and complains of dyspnea after a couple of minutes all of the above symptoms settled down she remained teary-eyed when asked what is bothering her the most today she reports it is her back pain c/o nausea - states it is the tylenol doing it? no abd pain also c/o L ankle pain we discussed podiatry consult for this and that she may need surgery to remove the presumed infected hardware in the ankle obtained blood consent from patient due to worsening anemia -- witnessed by nursing staff Review of Systems Review of Systems: gen - no fevers or chills cv - no chest pain GI - no pain today Physical Exam Physical Exam: gen - looks chronically unwell, thin; very upset today, tearful, had what may have been a panic attack neck - no JVD mouth - MMM heart - RRR, s1 s2, no murmur lungs - CTA b/l abd - distended with ascites (mild-moderate --> no change from yesterday's exam), BS+, NT, no HSM ext - no edema, pulses feet 2+ b/l skin - tattoo on upper chest; left ankle - optifoams in place (not removed today) musculo - c-spine, t-spine, and l-spine - nontender to palpation along the spinous processes; mild paraspinal muscle tenderness to palpation Results & Data Results & Data Vital Signs (Past 12 Hours) Vital Signs Temp Pulse Resp BP Pulse Ox O2 Del Method 01/20/24 08:06 36.8 C 93 H 17 100/61 99 Room Air 01/20/24 03:33 36.5 C 86 16 94/54 L 95 Room Air Laboratory Results Laboratory Results - last 24 hr 01/19/24 01/20/24 14:41 06:39 WBC 7.83 RBC 2.55 L Hgb 7.4 L Hct 22.6 L MCV 88.6 MCH 29.0 MCHC 32.7 RDW Std Deviation 59.0 H RDW Coeff of Liam 18.0 H Plt Count 181 MPV 10.4 ESR 19 Sodium 132 L Potassium 3.8 Chloride 106 Carbon Dioxide 21 Anion Gap 5 BUN 16 Creatinine 1.05 Est Cr Clr Drug Dosing 46.8 eGFR 58.24 BUN/Creatinine Ratio 15.2 Glucose 76 Calcium 8.1 L C-Reactive Protein 0.73 H Diagnostic Findings Ankle MRI 01/19/24 14:29 Exam(s): MRI LEFT ANKLE W/WO Contrast IV Amt: 5.5cc gadavist EXAM: MR Left Lower Extremity Without and With Intravenous Contrast, Ankle CLINICAL HISTORY: Reason for exam: h/o ORIF tibfib Fx's;chronic drainage med/lat ankl. TECHNIQUE: Multiplanar magnetic resonance images of the left ankle without and with intravenous contrast. CONTRAST: Patient received 5.5cc gadavist of IV contrast COMPARISON: No relevant prior studies available. FINDINGS: Status-post ORIF of the ankle with lateral plate + screw fixation. Syndesmotic fixation is also present. No drainable fluid collection or abscess. Magnetic susceptibility artifact limits evaluation for osteomyelitis however, there is no MR evidence of osteomyelitis at this time. As per history, there is drainage to the medial and lateral ankle, which should be correlated with physical exam. Mild synovitis in sinus tarsi. Intact tibiotalar joint. Intact medial flexor tendons, lateral peroneal tendons, and anterior extensor tendons. Normal syndesmotic ligaments. No acute ankle sprain. IMPRESSION: Status-post ORIF of the ankle with lateral plate + screw fixation. Syndesmotic fixation is also present. No drainable fluid collection or abscess. Magnetic susceptibility artifact limits evaluation for osteomyelitis however, there is no MR evidence of osteomyelitis at this time. As per history, there is drainage to the medial and lateral ankle, which should be correlated with physical exam. Electronically signed by: Oswald Ellsworth MD 01/20/24 04:45 AM PG Care Time/CCT Total # of Minutes Spent Total Time Spent with Patient: Total time spent is greater than 50% in coordination of care (as documented) at patient's floor/unit and/or counseling patient: Prolonged Care Time Prolonged Care Time: Yes Total Prolonged Care Time: 80 Coding Level of Care Code 41269 SUB INP/OBS CARE 3/50MIN (25 - SIGNIFICANT, SEPARATELY IDENTIFIABLE ) Diagnoses Wound of left ankle S91.002A Ascites R18.8 Hepatic encephalopathy K76.82 Hypomagnesemia E83.42 Hypokalemia E87.6 Anemia D64.9 Thickened endometrium R93.89 Liver cirrhosis K74.60 Portal hypertension K76.6 Fall W19.XXXA Esophageal varices I85.00 Tobacco use Z72.0 Back pain M54.9 Additional Codes Prolonged Care Time - Prolonged Care Time: Yes ([id number])
[2024-01-20] MEDS: FERROUS SULFATE 325 MG TAB PO SCH (11:11)
[2024-01-20] MEDS: BACLOFEN 10 MG TAB PO ONE (11:51)
[2024-01-20] MEDS: FAMOTIDINE 20MG IV PUSH 20 MG/5 ML SYR IV STA (11:51)
[2024-01-20] MEDS: OPTIRAY 320 125ml IV ONE (13:25)
[2024-01-20 13:32] LABS: Appearance Urine Clear (Clear); Bacteria Urine Automated None Seen (None Seen); Bilirubin Urine Negative (Negative); Blood Urine Negative (Negative); Cast Urine Automated 0-2 /lpf (0-2); Color Urine Yellow; Glucose Urine UA Negative (Negative); Ketones Urine Trace (Negative); Leukocyte Esterase Urine 1+ (Negative); Nitrite Urine Negative (Negative); Protein Urine Trace (Negative); RBC Urine Automated 0-2 /hpf (0-2); Specific Gravity Urine 1.018 (1.000-1.030); Urobilinogen Urine Negative (Negative); WBC Urine Automated 0-5 /hpf (0-5); pH Urine 6.5 (4.5-7.5)
--- NOTE | 2024-01-20 14:22 | CT Scan Report ---
CT thoracic spine w con CLINICAL HISTORY: severe upper back pain, r/o compression Fx etc TECHNIQUE: Multidetector row helical CT of the thoracic spine was performed following administration of intravenous contrast. Coronal and sagittal reformations were obtained. Automated dose lowering cristopher hniques and/or adjustment according to patient size were utilized for this exam. Comparison: None available at the time of this dictation. FINDINGS: No acute fractures are identified. Degenerative changes are noted in the visualized spine. ACDF is se en. Partial visualization of abdominal ascites and a moderate hiatal hernia. Emphysema is seen. IMPRESSION: Degenerative changes without evidence of acute fracture. ACT 112: Negative or not required by law. Electronically signed by: Brian Mckenzie M.D. 01/20/2024 2:21 PM
--- NOTE | 2024-01-20 14:48 | CT Scan Report ---
CT ANGIOGRAM OF THE CHEST CLINICAL HISTORY: Dyspnea. Thoracic back pain. Dizziness. COMPARISON STUDY: No priors. TECHNIQUE: Following the IV administration of 112 cc of Optiray 320, CT angiogram of the chest was pe rformed from the upper abdomen to the thoracic inlet utilizing the pulmonary embolus protocol. Images are reviewed in the axial, sagittal, and coronal planes. 3-D MIPS images are created and assessed. I V contrast was administered without complication. A dose lowering technique was utilized adhering to the principles of ALARA. The examination is degraded by streak artifact from the arms which could no t be elevated above the chest. CT DOSE: 635.21 mGy.cm FINDINGS: Thyroid: Imaged portions of the thyroid gland are normal in size and attenuation. Thoracic aorta: There is atherosclerotic calcification of the thoracic aorta, which is normal in arnoldo sandor and demonstrates standard 3-vessel arch anatomy. No dissection is seen. Pulmonary vasculature: The pulmonary trunk is normal in caliber. There are no filling defects identif ied in main, lobar, or segmental pulmonary branches to suggest pulmonary embolus. Heart: The heart is normal in size and without pericardial effusion. Lungs and pleural spaces: There is moderate to advanced emphysema. No airspace consolidation or pleur al effusion is identified. The trachea and central airways are clear. Scattered foci of parenchymal s carring are seen throughout both lungs. Mediastinum: There is no mediastinal lymphadenopathy. Evie: Clear. Axillae: There is no axillary lymphadenopathy. Upper abdomen: The liver is cirrhotic in morphology, steatotic, and heterogeneous in attenuation. The re is hypertrophy of the left lobe and nodularity of the hepatic surface contour. A moderate volume o f abdominal ascites is seen in the upper abdomen. There is a moderate to large hiatal hernia. Skeletal structures: The skeletal structures are osteopenic. Postsurgical change is noted in the lowe r cervical spine. Degenerative change and mild kyphoscoliosis is seen in the thoracic spine. No lytic or blastic bony lesions are seen. IMPRESSION: 1. There is no evidence of pulmonary embolus in the main, lobar, or segmental pulmonary arteries. 2. Emphysema. 3. There is no airspace consolidation or pleural effusion. 4. Cirrhosis and ascites. 5. Hiatal hernia. 6. Additional findings as above. ACT 112: Negative or not required by law. Electronically signed by: Arsalan Carreon M.D. 01/20/2024 2:47 PM
[2024-01-20] MEDS: SUCRALFATE 1 GM/10 ML UDC PO SCH (15:11)
[2024-01-20] MEDS: ALBUTEROL HFA 8 GM INHALER INH SCH ×2 (15:19→16:21)
[2024-01-20] MEDS: FUROSEMIDE INJ 20 MG/2 ML VIAL IV ONE (18:32)
--- NOTE | 2024-01-20 21:55 | Podiatry Consultation ---
Date of Consultation January 20, 2024 Assessment & Plan (1) Infected hardware in left lower extremity: Encounter type: initial encounter Qualified Code(s): T84.7XXA - Infection and inflammatory reaction due to other internal orthopedic prosthetic devices, implants and grafts, initial encounter (2) History of fracture of left ankle: (3) Wound of left ankle: Encounter type: initial encounter Qualified Code(s): S91.002A - Unspecified open wound, left ankle, initial encounter Plan - Patient examined and evaluated. - Discussed that these nonhealing wounds with nonspecific MR and XR findings are consistent with chronic hardware infection. - Given time since initial ORIF, hardware can be safely removed at this time, allowing wound to heal and for succesful antibiosis. - Will plan on hardware removal tomorrow with deep bone cultures/bone biopsy - Procedure should not add significant time to hospitalization; can be d/c whenever stable otherwise with results still pending. - D/w patient and she is amenable. Will obtain consult preoperatively. History of Present Illness Reason for Consultation: Left ankle infected hardware Attending Physician: Man Duffy MD History of Present Illness Patient seen at bedside. Admitted for evaluation of Cirrhosis, suspect hepatic encephalopathy, and noted to have infected draining sinuses to the left ankle. She has a 4-5 year history of ankle fracture with ORIF which she states became infected shortly afterwards. Admits the wounds have been draining for 3+ years but worse recently. She has a history of alcohol dependence, but has done well with this hospitalization and is feeling good, eating lunch at time of exam. No systemic signs of infection. She is curious what she needs to do for the ankle to heal moving forward. Allergies Allergy/AdvReac Type Severity Reaction Status Date / Time No Known Allergies Allergy Unverified 01/11/24 14:10 Home Medications Medication Instructions Recorded Confirmed Type No Known Home Medications 01/11/24 01/11/24 History Patient History Medical History No acute medical problems Surgical History History of ankle surgery Social History Smoking Status: Current every day smoker Tobacco Type: Cigarettes Hx Alcohol Use: Yes Alcohol type: beer Hx Substance Use: No Preferred Language: Maldivian Communication Ability: Effective Retread Operator Required: No Beliefs That Will Affect Care: None Current Living Situation: Alone Feels Safe at Home: Yes Assistive Devices: None Review of Systems Review of Systems: All systems reviewed & are unremarkable except as noted in HPI & below and Unobtainable due to cognitive status Constitutional: + weight loss; no fever, no chills and n o fatigue Eyes: no problem reported Ear, Nose, Mouth, Throat: no problem reported Respiratory: no problem reported Cardiovascular: + edema; no problem reported Gastrointestinal: no nausea, no vomiting and no problem reported Genitourinary: no problem reported Musculoskeletal: + swelling and + limited range of motion ; no problem reported Integumentary: + non-healing lesions, + skin ulcer, + w ounds and + erythema Neurologic: + generalized weakness, + loss of sensat ion, + numbness and + paresthesia Psychiatric: no problem reported Physical Exam Physical Exam: Lower extremity exam: DP/PT pulses diminished, but palpable b/l. CFT brisk to the digits. Advanced trophic changes and muscle wasting noted. Draining ulcerations noted to medial and lateral left ankle. No ascending cellulitis noted. MRI and xrays reveal no loosening of hardware or drainable abscess but heavy artifact due to retained hardware on MRI. XR does reveal suggestion of fluid along tightrope. Pain is noted on palpation of ankle surgical sites. Constitutional: WD/WN, vitals as above + ill appearing and + obese Eyes: PERRL, conjunctivae normal, anicteric sclerae ENMT: external ear and nose normal, oropharynx normal Neck: trachea midline, no thyromegaly normal visual inspection Respiratory: normal respiratory effort; no respiratory distress Cardiovascular: Rate/Rhythm: regular rate and regular rhythm Chest (Breasts): Chest: normal inspection of chest Gastrointestinal (Abdomen): Inspection/Auscultation: abdomen normal to inspection Percussion/Palpation: + abdomen tender and abdomen soft Musculoskeletal: no cyanosis or clubbing, extremities motor strength 5/5 Head/Neck/Chest: normocephalic and head atraumatic Extremities: extremities normal to inspection, + abnormal strength, + muscle atrophy and + limited ROM of lower extremity Ankle: + ankle abnormal to inspection and + limited ROM of ankle Skin: + fistulous tract Neurologic: awake; no focal motor deficits Psychiatric: A+Ox3, euthymic affect Results & Data Vital Signs (Past 12 Hours) Vital Signs Temp Pulse Pulse Resp BP BP Pulse Ox 01/20/24 19:56 90 16 98 01/20/24 19:16 36.9 C 87 18 106/68 97 01/20/24 18:07 36.7 C 91 H 16 118/81 97 01/20/24 16:39 37.0 C 92 H 16 115/74 98 01/20/24 16:13 36.5 C 110 H 20 121/78 98 01/20/24 15:39 37 C 94 H 16 115/77 100 01/20/24 15:19 98 H 17 100 01/20/24 15:09 36.6 C 100 H 16 126/82 100 01/20/24 14:54 36.9 C 89 16 107/68 99 01/20/24 14:38 36.7 C 93 H 20 118/72 100 01/20/24 11:23 36.4 C L 100 H 16 109/73 99 O2 Del Method 01/20/24 19:56 Room Air 01/20/24 19:16 Room Air 01/20/24 18:07 01/20/24 16:39 01/20/24 16:13 01/20/24 15:39 01/20/24 15:19 Room Air 01/20/24 15:09 01/20/24 14:54 01/20/24 14:38 01/20/24 11:23 Room Air
[2024-01-21] MEDS ORDERED: ROPIVACAINE 0.5% 5 MG/ML 30 ML VIAL ONE (07:03)
[2024-01-21 07:19] LABS: Hematocrit (blood only) 25.9 % (37.0-47.0); Hemoglobin 8.6 g/dl (12.0-16.0); Mean Corpuscular Hemoglobin 29.2 pg (25.0-34.0); Mean Corpuscular Hgb Conc 33.2 g/dL (32.0-36.0); Mean Corpuscular Volume 87.8 fL (80.0-100.0); Mean Platelet Volume 11.2 fL (9.4-12.4); Platelet Count 166 K/uL (130-400); RDW Coefficient of Variation 16.8 % (11.5-14.5); RDW Standard Deviation 54.3 fL (36.4-46.3); Red Blood Count 2.95 M/uL (4.20-5.40); White Blood Count 6.23 K/ul (4.8-10.8)
[2024-01-21] MEDS: oxyCODONE HCL IR 5 MG TAB (IMMEDIATE RELEASE) PO PRN (07:39)
[2024-01-21 07:42] LABS: Calcium 7.9 mg/dl (8.6-10.3); Creatinine Clr Calc Pharmacy 47.3 ml/min; Magnesium 1.4 mg/dl (1.7-2.4); Potassium 2.9 mmol/L (3.5-5.1)
[2024-01-21 07:47] LABS: INR 1.1 (0.9-1.1); Prothrombin Time 12.2 Seconds (9.0-12.0)
[2024-01-21] MEDS: MAGNESIUM SULFATE / D5W 1 GM/100 ML BAG IV SCH (08:24)
[2024-01-21] MEDS: POTASSIUM CHLORIDE CRTAB 20 MEQ TABCR PO STA (08:25)
[2024-01-21] MEDS: POTASSIUM CHLORIDE / WTR 10 MEQ/100 ML PLCT IV SCH ×2 (08:25→16:15)
[2024-01-21] MEDS: LORazepam 0.5 MG TAB PO STA (10:22)
[2024-01-21] MEDS ORDERED: POTASSIUM CHLORIDE / WTR 10 MEQ/100 ML PLCT IV SCH (10:40)
[2024-01-21] MEDS ORDERED: Nursing to Pharmacy Communication SCH ×2 (11:00→15:30)
--- NOTE | 2024-01-21 11:42 | Hospitalist Progress Note ---
Date of Service January 21, 2024 Assessment & Plan (1) Wound of left ankle: Plan: s/p ORIF for L ankle fracture about 5 years ago - TIMMY Reynolds - [facility] non-healing wounds both medially and laterally since that surgery the lateral ankle wounds are worse with foul-smelling, purulent drainage particularly from two tiny ulcerations/probable sinus tracts wound cx from the lateral wound - MSSA remains on cefepime/daptomycin; can stop latter blood cx's are negative previous ankle x-rays L ankle without obvious signs of osteomyelitis MRI left ankle w/ and w/o contrast - no obvious osteomyelitis or other pathology further, sed rate/crp not elevated despite the negative MRI there is heavy concern that the hardware in the left ankle is chronically infected appreciate Dr Merida's consultation from podiatry to the OR today for removal of left ankle hardware, obtainment of cultures including bone cultures, etc. (2) Hypomagnesemia: Plan: mag 1.4 this am 2nd diuretics give mag sulfate 2gm IV x 1 now replace low K as well repeat level am (3) Hypokalemia: Plan: Potassium 2.6 on arrival s/p replacement with improved levels now low again at 2.9 today -- 2nd to diuretics K-dur 40meq po x 1 KCL IV 20meq IV x 1 repeat BMP am replace low mag as well (4) Ascites: Plan: s/p paracentesis 01/12/24 with 4 L of fluid removed fluid was transudative by fluid analysis no evidence of SBP SAAG >1.2 c/w portal HTN since 01/12 had been receiving IV lasix & aldactone with stable BMPs remains on lactulose patient declined repeat paracentesis 01/17 etiology of cirrhosis?? pt denies h/o heavy alcohol abuse HepB, HepC titers negative doubt MASH/GRIFFITH but can't rule it out if BPs will allow start nonselective BB for portal HTN imaging this admission showed evidence of esophageal varices will need outpatient GI referral and surveillance EGD will be needed cont PPI cont carafate hold lasix/aldactone until post-op labs are available tomorrow am (5) Hepatic encephalopathy: Plan: Ammonia mildly elevated at 73.0 on arrival s/p lactulose since admission with improved mentation and improved ammonia levels titrate lactulose for 3 BMs/day she has been declining her lactulose at times, and periodically she is still confused recheck ammonia level in am tomorrow (6) Anemia: Plan: B12/folate wnl Ferritin 57 transferrin sat 27%, however although latter is normal the ferritin is low end of normal added iron supplementation once daily s/p 1 unit PRBCs yesterday with stable H/H today repeat CBC am (7) Thickened endometrium: Plan: A/P CT on arrival revealed a thickened endometrium Nonemergent follow-up with gynecology is recommended upon discharge (8) Liver cirrhosis: Plan: see above (9) Portal hypertension: Plan: as noted on admission CT a/p see above (10) Fall: Plan: no fractures on extensive imaging obtained since admission PT, OT will need rehab (11) Esophageal varices: Plan: will need outpatient surveillance EGD ideally low-dose nadalol or inderal should be started if BPs can tolerate added PPI once daily (12) Tobacco use: Plan: Nicotine patch daily Continue to encourage cessation (13) Back pain: Plan: checked t-spine CT - NO compression fracture checked CTA chest - NO PE or pneumonia or rib fractures oxycodone 7.5mg q6h prn pain cont heating pad Plan dispo - SNF on 01/19 patient mentioned episodes of tinnitus with ear pain followed by back pain; had these episodes at home over the last year; uncertain etiology will work this up further in a couple of days appreciate Dr Merida's consult & assistance Admission and Anticipated Discharge Date Admission Date: January 11, 2024 Subjective tele wnl overnight patient resting in bed during the visit she reportedly had had nausea earlier in the morning, but simultaneously reported feeling hungry and asked why she couldn't eat I explained she was NPO for her surgery on her left ankle denies any abdominal pain denies vomiting no dyspnea back pain improved from yesterday she admits to feeling anxious Review of Systems Review of Systems: gen - no fevers or chills cv - no chest pain pulm - no dyspnea at rest Physical Exam Physical Exam: gen - NAD, anxious neck - no JVD mouth - MMM heart - RRR, s1 s2, no murmur lungs - CTA b/l abd - distended with ascites (mild) BS+, NT, no HSM ext - no edema, pulses feet 2+ b/l skin - left ankle - optifoams in place; foul odor present from the left ankle psych - anxious Results & Data Results & Data Vital Signs (Past 12 Hours) Vital Signs Temp Pulse Pulse Resp BP Pulse Ox O2 Del Method 01/21/24 10:50 36.6 C 90 18 124/79 98 Room Air 01/21/24 08:07 99 H 01/21/24 08:07 Room Air 01/21/24 07:22 92 H 16 100 Room Air 01/21/24 07:09 36.7 C 95 H 18 107/70 99 Room Air 01/21/24 04:00 36.5 C 81 18 98/65 L 95 Room Air Laboratory Results Laboratory Results - last 24 hr 01/20/24 01/20/24 01/20/24 11:16 11:24 13:10 WBC RBC Hgb Hct MCV MCH MCHC RDW Std Deviation RDW Coeff of Liam Plt Count MPV PT INR Sodium Potassium Chloride Carbon Dioxide Anion Gap BUN Creatinine Est Cr Clr Drug Dosing eGFR BUN/Creatinine Ratio Glucose Calcium Magnesium Urine Color Yellow Urine Appearance Clear Urine pH 6.5 Ur Specific [place] 1.018 Urine Protein Trace H Urine Glucose (UA) Negative Urine Ketones Trace H Urine Blood Negative Urine Nitrite Negative Urine Bilirubin Negative Urine Urobilinogen Negative Ur Leukocyte Esterase 1+ H Urine WBC (Auto) 0-5 Urine RBC (Auto) 0-2 U Hyaline Cast (Auto) 0-2 U Epithel Cells (Auto) 3-5 H Urine Bacteria (Auto) None Seen Blood Type O Negative Blood Type Recheck O Negative Antibody Screen NEGATIVE Crossmatch See Detail 01/21/24 06:50 WBC 6.23 RBC 2.95 L Hgb 8.6 L Hct 25.9 L MCV 87.8 MCH 29.2 MCHC 33.2 RDW Std Deviation 54.3 H RDW Coeff of Liam 16.8 H Plt Count 166 MPV 11.2 PT 12.2 H INR 1.1 Sodium 133 L Potassium 2.9 L D Chloride 104 Carbon Dioxide 20 L Anion Gap 9 BUN 17 Creatinine 1.06 Est Cr Clr Drug Dosing 47.3 eGFR 57.58 BUN/Creatinine Ratio 16.0 Glucose 132 H Calcium 7.9 L Magnesium 1.4 L Urine Color Urine Appearance Urine pH Ur Specific [place] Urine Protein Urine Glucose (UA) Urine Ketones Urine Blood Urine Nitrite Urine Bilirubin Urine Urobilinogen Ur Leukocyte Esterase Urine WBC (Auto) Urine RBC (Auto) U Hyaline Cast (Auto) U Epithel Cells (Auto) Urine Bacteria (Auto) Blood Type Blood Type Recheck Antibody Screen Crossmatch Diagnostic Findings Microbiology 01/19/24 14:42 Blood Aerobic Blood Culture - Preliminary No growth in Aerobic bottle after 48 hours. 01/19/24 14:42 Blood Anaerobic Blood Culture - Final 01/19/24 14:41 Blood Aerobic Blood Culture - Preliminary No growth in Aerobic bottle after 48 hours. 01/19/24 14:41 Blood Anaerobic Blood Culture - Preliminary No growth in Anaerobic bottle after 48 hours. 01/21/24 13:00 Ankle,Left Gram Stain - Final 01/20/24 13:10 Urine,Clean Catch Urine Culture - Preliminary Pin-point growth present, reincubating. 01/19/24 15:00 Ankle,Left Gram Stain - Final 01/19/24 15:00 Ankle,Left Aerobic and Anaerobic Culture - Preliminary Staphylococcus aureus 01/12/24 15:10 Peritoneal Fluid Gram Stain - Final 01/12/24 15:10 Peritoneal Fluid Aerobic and Anaerobic Culture - Final No growth PG Care Time/CCT Total # of Minutes Spent Total Time Spent with Patient: Total time spent is greater than 50% in coordination of care (as documented) at patient's floor/unit and/or counseling patient: Coding Level of Care Code 24124 SUB INP/OBS CARE 3/50MIN Diagnoses Wound of left ankle, initial encounter S91.002A Encounter type: initial encounter Hypomagnesemia E83.42 Hypokalemia E87.6 Ascites R18.8 Hepatic encephalopathy K76.82 Anemia D64.9 Thickened endometrium R93.89 Liver cirrhosis K74.60 Portal hypertension K76.6 Fall W19.XXXA Esophageal varices I85.00 Tobacco use Z72.0 Back pain M54.9 (1) Wound of left ankle Encounter type: initial encounter Qualified Code(s): S91.002A - Unspecified open wound, left ankle, initial encounter
--- NOTE | 2024-01-21 11:52 | History & Physical Bridge Note ---
Date of Service January 21, 2024 History & Physical Bridge Note I have examined the patient, reviewed the History & Physical and in the interval since the performance of the History & Physical I have noted the following changes of clinical significance: no changes noted. Plan for left ankle hardware removal. All questions answered. Consent obtained.
--- NOTE | 2024-01-21 12:00 | Anesthesiology Consultation ---
Date of Service January 21, 2024 Assessment & Plan Chart Review Chart Review: Acceptable Risk for Surgery and Patient NOT seen in Pre Admission Testing Consults Requested none ASA ASA4 Proposed Anesthesia Anesthesia Type: MAC Risk / Benefits Reviewed With: PT / POA / Parent / Guardian, Accepts Plan and Informed Consent Obtained History Surgery Operation Date: 01/21/24 10:20 Proposed Procedures p Left Ankle Hardware Removal - Aguilar Merida, WAGNER Height/Weight Height: 5 ft 6 in Weight: 58.2 kg Allergies Allergy/AdvReac Type Severity Reaction Status Date / Time No Known Allergies Allergy Unverified 01/11/24 14:10 Medications Home Medications Medication Instructions Recorded Confirmed Last Taken No Known Home Medications 01/11/24 01/11/24 Unknown Active Medications Generic Name Dose Route Start Last Admin Trade Name Freq PRN Reason Stop Dose Admin Albuterol 2 puffs 01/20/24 15:00 01/21/24 11:26 Albuterol Hfa 8 Gm Inhaler INH 02/19/24 14:59 Not Given QIDR GLORIA Ferrous Sulfate 325 mg 01/20/24 09:00 01/21/24 07:44 Ferrous Sulfate 325 Mg Tab PO 02/19/24 08:59 325 mg QAM GLORIA Administration Furosemide 40 mg 01/19/24 09:00 01/21/24 07:44 Furosemide 40 Mg Tab PO 02/18/24 08:59 40 mg QAM GLORIA Administration Cefepime HCl 2,000 mg in 20 mls @ 5 mls/min 01/19/24 18:00 01/21/24 05:34 Maxipime 2000mg IV 03/01/24 17:59 5 mls/min Q12H GLORIA Administration Protocol Miscellaneous 1 each 01/12/24 08:59 01/21/24 07:43 Remove Nicoderm Patch N/A 02/11/24 08:58 Not Given [id number] GLORIA Nicotine 1 patch 01/12/24 09:00 01/21/24 07:41 Nicotine 14 Mg/24 Hr Patch TD 02/11/24 08:59 1 patch QAM GLORIA Administration Ondansetron HCl 4 mg 01/11/24 16:46 01/21/24 08:24 Ondansetron Inj 2 Mg/Ml 2 Ml Vial IV 02/10/24 16:45 4 mg Q6H PRN Administration Nausea Oxycodone HCl 7.5 mg 01/20/24 11:07 01/21/24 07:39 Oxycodone Hcl Ir 5 Mg Tab (Immediate Release) PO 02/02/24 14:23 7.5 mg Q6H PRN Administration moderate/severe Pain (6-10) Pantoprazole Sodium 40 mg 01/18/24 09:00 01/21/24 07:47 Pantoprazole 40 Mg Tab PO 02/17/24 08:59 40 mg QAM GLORIA Administration Spironolactone 50 mg 01/13/24 09:00 01/21/24 07:46 Spironolactone 25 Mg Tab PO 02/12/24 08:59 50 mg QAM GLORIA Administration Sucralfate 1 gm 01/20/24 13:00 01/21/24 07:38 Sucralfate 1 Gm/10 Ml Udc PO 02/19/24 12:59 Not Given QID GLORIA NPO Date Last Intake of Fluids: 01/20/24 Time Last Intake of Fluids: 18:00 Date Last Intake of Solids: 01/20/24 Time Last Intake of Solids: 18:00 Past Medical History Medical History No acute medical problems cirrhosis portal HTN esoph. varice anemia HLD malnutrition hypokalemia copd/emphysema ASCVD Aorta Exercise / Class Metabolic Activity III < 4 Walking/Shop/Light housework Past Surgical History Surgical History History of ankle surgery Past Anesthesia History No Hx of Anesthesia Complications and No Family Hx of Anesthesia Complications History of PONV No Hx of PONV and No Hx of Motion Sickness Social History Smoking Status: Current every day smoker Hx Alcohol Use: Yes Alcohol type: beer Hx Substance Use: No Physical Exam Vital Signs Last Vital Signs Temp 36.6 C 01/21/24 10:50 Pulse 90 01/21/24 10:50 Resp 18 01/21/24 10:50 BP 124/79 01/21/24 10:50 Pulse Ox 98 01/21/24 10:50 O2 Del Method Room Air 01/21/24 10:50 Constitutional + cachectic; no acute distress ENMT Mouth: + dentition abnormality and + dentures Thyromental Distance: < 3.5 Finger Breadths Mallampati Class: II Neck normal visual inspection and trachea midline; neck extension not limited Respiratory normal respiratory effort Cardiovascular Rate/Rhythm: regular rate and regular rhythm Heart Sounds: no murmur Vessels: no carotid bruit Musculoskeletal Spine: normal cervical ROM and no pain with cervical ROM Extremities: extremities normal to inspection; full ROM of extremities Neurologic moves all extremities Motor/Sensory: no sensory deficit Psychiatric Orientation: alert and oriented x 3 Testing Laboratory Results 01/21/24 06:50 01/21/24 06:50 PT 12.2 Seconds (9.0-12.0) H 01/21/24 06:50 INR 1.1 (0.9-1.1) 01/21/24 06:50 Urine Color Yellow 01/20/24 13:10 Urine Appearance Clear (Clear) 01/20/24 13:10 Urine pH 6.5 (4.5-7.5) 01/20/24 13:10 Ur Specific [place] 1.018 (1.000-1.030) 01/20/24 13:10 Urine Protein Trace (Negative) H 01/20/24 13:10 Urine Glucose (UA) Negative (Negative) 01/20/24 13:10 Urine Ketones Trace (Negative) H 01/20/24 13:10 Urine Nitrite Negative (Negative) 01/20/24 13:10 Ur Leukocyte Esterase 1+ (Negative) H 01/20/24 13:10 Urine WBC (Auto) 0-5 /hpf (0-5) 01/20/24 13:10 Urine RBC (Auto) 0-2 /hpf (0-2) 01/20/24 13:10 U Hyaline Cast (Auto) 0-2 /lpf (0-2) 01/20/24 13:10 U Epithel Cells (Auto) 3-5 /hpf (0-2) H 01/20/24 13:10 Urine Bacteria (Auto) None Seen (None Seen) 01/20/24 13:10 Blood Type O Negative 01/20/24 11:16 Antibody Screen NEGATIVE 01/20/24 11:16 01/19/24 15:00 Gram Stain - Final Ankle,Left Aerobic and Anaerobic Culture - Preliminary Staphylococcus aureus 01/19/24 14:42 Aerobic Blood Culture - Preliminary Blood No growth in Aerobic bottle after 24 hours. Anaerobic Blood Culture - Final 01/19/24 14:41 Aerobic Blood Culture - Preliminary Blood No growth in Aerobic bottle after 24 hours. Anaerobic Blood Culture - Preliminary No growth in Anaerobic bottle after 24 hours. 01/12/24 15:10 Gram Stain - Final Peritoneal Fluid Aerobic and Anaerobic Culture - Final No growth Electrocardiogram Date: 01/11/24 Findings: + NSR @ (@ 89;low voltage QRS) Echocardiogram Date: 01/19/24 EF: 65%
[2024-01-21] MEDS ORDERED: ONDANSETRON INJ 2 MG/ML 2 ML VIAL ONE (12:01)
[2024-01-21] MEDS ORDERED: PROPOFOL IV EMULSION 10 MG/ML 20 ML VIAL IV ONE (12:01)
[2024-01-21] MEDS ORDERED: LIDOCAINE 2% 2 ML VIAL/AMP(20MG/ML) INFIL ONE (12:01)
[2024-01-21] MEDS ORDERED: fentaNYL citrate PF 100 MCG/2 ML VIAL ONE (12:01)
[2024-01-21] MEDS ORDERED: DEXAMETHASONE SOD INJ 4 MG/ML VIAL ONE (12:01)
[2024-01-21] MEDS ORDERED: MIDAZOLAM HCL 1 MG/ML 2ML VIAL ONE (12:01)
[2024-01-21] MEDS ORDERED: ATROPINE SULFATE 0.1 MG/ML 10ML SYR IV PRN (12:03)
[2024-01-21] MEDS ORDERED: PROMETHAZINE HCL 6.25 MG in SODIUM CHLORIDE 0.9% 50 ML IV PRN (12:03)
[2024-01-21] MEDS ORDERED: ePHEDrine sulfate 50 MG/ML AMP IV PRN (12:03)
[2024-01-21] MEDS ORDERED: NALOXONE HCL 0.4 MG/1 ML VIAL/CARP IV PRN (12:03)
[2024-01-21] MEDS ORDERED: ONDANSETRON INJ 2 MG/ML 2 ML VIAL IV PRN (12:03)
[2024-01-21] MEDS ORDERED: FLUMAZENIL 0.1 MG/1 ML 10 ML VIAL IV PRN (12:03)
[2024-01-21] MEDS: BUPIVACAINE 0.5 % 5 MG/1 ML MPF 30ML VIAL ONE (12:43)
--- NOTE | 2024-01-21 13:30 | Post Operative Brief Note ---
Immediate Post Op Note Date of Surgery January 21, 2024 Pre & Post Diagnosis Operation Date: 01/21/24 10:20 Pre-Op Diagnosis: Infected hardware in left lower extremity Post-Op Diagnosis: Infected hardware in left lower extremity I identified the patient and participated in the time-out.: Yes Procedure Operation Date: 01/21/24 10:20 Actual Procedures p Left Ankle Hardware Removal(Left) - Aguilar Merida DPM Surgeon Aguilar Merida DPM Watch Train Inspector None Estimated Blood Loss 10 Findings Consistent with Post-Op Diagnosis Specimens Bone from fiberwire portal Anesthesia Type MAC Complications none Disposition Accompanied Patient To Recovery: Yes Disposition: Recovery Room
[2024-01-21] MEDS: fentaNYL citrate PF 100 MCG/2 ML VIAL IV PRN (13:36)
--- NOTE | 2024-01-21 13:47 | Operative Report ---
Post Operative Report Pre & Post Diagnosis Operation Date: 01/21/24 10:20 Pre-Op Diagnosis: Infected hardware in left lower extremity Post-Op Diagnosis: Infected hardware in left lower extremity I identified the patient and participated in the time-out.: Yes Procedure Operation Date: 01/21/24 10:20 Actual Procedures p Left Ankle Hardware Removal(Left) - Aguilar Merida DPM Surgeon Aguilar Merida DPM Yarn Mercerizer Operator Helper None Estimated Blood Loss 10 Findings Consistent with Post-Op Diagnosis Tight rope was immediately noted medially and laterally under both draining sinuses, with direct extension from the wound to the bone. The tight rope was still intact but did communicate with the remainder of the hardware, so all hardware was removed. With the extensive purulence in this tight rope cavity, there is likely underlying osteomyelitis as well. Specimens Bottom Painter bone from the tunnel of the tight rope was obtained for culture Anesthesia Type MAC Complications none Disposition Accompanied Patient To Recovery: Yes Disposition: Recovery Room Indications This patient is a recent hospital patient of mine who presented to the hospital with worsening cirrhosis and medical health concerns. We were consulted for evaluation and treatment of draining sinus tracts noted to the left ankle. She has a history of left ankle open reduction internal fixation several years ago a nd admits to having these draining sinuses for at least the last 3 years. She had not sought regular treatment, but it has been noted by the hospital care team. On clinical exam, the tight rope buttons were immediately noted and there is some evidence of purulence within the tract of the tight rope on MR imaging. Because of this, and the duration of time since the initial fracture, a hardware removal is planned. Preoperative instructions, postoperative instructions, relative risks, and outcomes were all discussed. Consent was obtained for this procedure. Description of Procedure The patient was brought to the operating room placed on the operating table in the supine position. Following administration of IV sedation, local analgesia was obtained utilizing 20 cc of half percent Marcaine in a local block fashion. The left lower extremity was scrubbed prepped and draped in the usual aseptic manner. The limb was elevated, exsanguinated, and the tourniquet was inflated to 250 mmHg. Attention was directed to the left ankle where 2 draining sinuses were noted on the medial and lateral aspect of the ankle. The tight rope buttons were immediately visualized and able to be removed by cutting the FiberWire and removing the buttons medially. The wounds themselves were excised utilizing 2 converging semielliptical incisions to excise them in total. The medial incision was flushed with copious amounts of sterile saline. Attention was then directed the laterally where a 15 cm incision was made directly overlying the fibula. The incision was carried down to the level of the fibula where the hardware was immediately visualized. The loosened suture buttons were able to be removed with the remaining FiberWire construct. This w as all passed off to the back table. The hardware was then removed by removing the screws utilizing the proper screwdriver. The plate was then freed utilizing a gregg elevator and [place] elevator. The interfragmentary compression screw was overgrown with bone which was able to be resected utilizing a rongeur. The screw was then removed as well, due to the proximity to the remaining hardware construct. Bottom Painter samples of bone were obtained from the tract of the FiberWire through the tibia and fibula. This will be sent for culture and sensitivity testing to help with any further antibiosis moving forward. The incisions were all flushed with copious months of sterile saline and closure was performed utilizing 2-0 Vicryl in the deep soft tissue, 4-0 Monocryl in subcuticular skin, and 4-0 nylon and 2-0 nylon in the skin. All skin incisions were primarily closed as no nonviable clinically infected tissue was left behind. Still, with the involvement of the FiberWire through the distal tibia, clinically she will carry the diagnosis of osteomyelitis. The tourniquet was deflated and immediate hyperemia was noted to the digits. The foot was cleaned and redressed with Xeroform gauze, 4 x 4 gauze, Kerlix, and an Monster wrap. The patient tolerated the procedure well and was transferred to the recovery room with vital signs stable and vascular status intact to the feet. Following postoperative monitoring, the patient was given prescriptions and instructions which were discussed with her prior to surgery. I attest to the content of the Intraoperative Record and any orders documented therein. Any exceptions are noted below.
[2024-01-21] MEDS: HYDROmorphone INJ 1 MG/ML SYRINGE ONE ×2 (13:56→14:16)
--- NOTE | 2024-01-21 14:16 | Anesthesiology Progress Note ---
Date of Service January 21, 2024 Anesthesia Post Procedure Vital Signs Vital Signs: Temp Pulse Pulse Pulse Resp BP BP 01/21/24 14:10 89 20 01/21/24 14:00 88 14 01/21/24 13:50 81 19 01/21/24 13:40 88 13 01/21/24 13:33 36.1 C L 98 H 12 01/21/24 10:50 36.6 C 90 18 124/79 01/21/24 08:07 99 H 01/21/24 08:07 01/21/24 07:22 92 H 16 01/21/24 07:09 36.7 C 95 H 18 107/70 01/21/24 04:00 36.5 C 81 18 98/65 L 01/20/24 23:00 36.7 C 84 18 103/62 01/20/24 21:52 88 01/20/24 19:56 90 16 01/20/24 19:16 36.9 C 87 18 106/68 01/20/24 18:07 36.7 C 91 H 16 118/81 01/20/24 16:39 37.0 C 92 H 16 115/74 01/20/24 16:13 36.5 C 110 H 20 121/78 01/20/24 15:39 37 C 94 H 16 115/77 01/20/24 15:19 98 H 17 01/20/24 15:09 36.6 C 100 H 16 126/82 01/20/24 14:54 36.9 C 89 16 107/68 01/20/24 14:38 36.7 C 93 H 20 118/72 BP Pulse Ox O2 Del Method 01/21/24 14:10 100/60 96 Room Air 01/21/24 14:00 100/61 96 Room Air 01/21/24 13:50 100/65 97 Room Air 01/21/24 13:40 105/60 95 Room Air 01/21/24 13:33 112/75 98 Room Air 01/21/24 10:50 98 Room Air 01/21/24 08:07 01/21/24 08:07 Room Air 01/21/24 07:22 100 Room Air 01/21/24 07:09 99 Room Air 01/21/24 04:00 95 Room Air 01/20/24 23:00 96 Room Air 01/20/24 21:52 01/20/24 19:56 98 Room Air 01/20/24 19:16 97 Room Air 01/20/24 18:07 97 01/20/24 16:39 98 01/20/24 16:13 98 01/20/24 15:39 100 01/20/24 15:19 100 Room Air 01/20/24 15:09 100 01/20/24 14:54 99 01/20/24 14:38 100 Pain Intensity Left Upper Medial Abdomen: Pain Intensity: 6 Lower Back: Pain Intensity: 7 Left Ankle: Pain Intensity: 7 Transfer of Care Handoff Completed per policy Notes Mental Status: alert / awake / arousable Patient Amnestic to Procedure: Yes Nausea / Vomiting: adequately controlled Pain: adequately controlled Airway Patency, RR, SpO2: stable & adequate BP & HR: stable & adequate Hydration State: stable & adequate Anesthetic Complications: no major complications apparent
--- NOTE | 2024-01-21 14:40 | Fluoroscopy Report ---
INTRAOPERATIVE RADIOGRAPH CLINICAL HISTORY: Hardware removal. Fluoro time: 5 seconds Ka,r: 0.01 mGy FINDINGS: A single spot fluoroscopic view of the left ankle is correlated with radiographs dated 12/28. Small plates along the medial cortex of the distal tibia and a fibular buttress plate have be en removed. A single cortical screw within the fibula remains. IMPRESSION: Intraoperative image from left ankle hardware removal as above. Electronically signed by: Arsalan Carreon M.D. 01/21/2024 2:39 PM
[2024-01-21] MEDS: LACTULOSE SYRUP 20 GM/30 ML UDC PO SCH (16:16)
[2024-01-22 08:04] LABS: Hematocrit (blood only) 25.8 % (37.0-47.0); Hemoglobin 8.6 g/dl (12.0-16.0); Mean Corpuscular Hemoglobin 29.5 pg (25.0-34.0); Mean Corpuscular Hgb Conc 33.3 g/dL (32.0-36.0); Mean Corpuscular Volume 88.4 fL (80.0-100.0); Mean Platelet Volume 10.3 fL (9.4-12.4); Platelet Count 179 K/uL (130-400); RDW Coefficient of Variation 16.5 % (11.5-14.5); RDW Standard Deviation 53.5 fL (36.4-46.3); Red Blood Count 2.92 M/uL (4.20-5.40); White Blood Count 10.76 K/ul (4.8-10.8)
[2024-01-22 08:18] LABS: BUN Creatinine Ratio 18.6 (10-20); Calcium 8.2 mg/dl (8.6-10.3); Creatinine Clr Calc Pharmacy 49.2 ml/min; Magnesium 2.1 mg/dl (1.7-2.4); Potassium 3.3 mmol/L (3.5-5.1)
[2024-01-22] MEDS: POTASSIUM CHLORIDE / WTR 10 MEQ/100 ML PLCT IV SCH (10:14)
--- NOTE | 2024-01-22 13:20 | Hospitalist Progress Note ---
Date of Service January 22, 2024 Assessment & Plan (1) Wound of left ankle: Plan: s/p ORIF for L ankle fracture about 5 years ago - TIMMY Reynolds - [facility] non-healing wounds both medially and laterally since that surgery wound cx from the lateral wound - MSSA remains on cefepime blood cx's are negative POD #1 - s/p left ankle hardware removal & obtainment of intra-op cultures removal of hardware was necessary due to chronic infection of such likely to have an element of osteomyelitis in the ankle due to the chronically infected wounds & hardware ID consult obtained today - recs as below: 1. stop cefepime 2. start cefazolin 2g IV q8h and use until hospital discharge 3. if OR cx has MSSA and no other organisms, then on discharge, she can be changed to cefadroxil 1g PO bid to complete 6 weeks of abx starting from day of surgery (01/20, end through 03/02) 4. If OR cx shows Staph and it is MRSA and no other organisms, can use doxycycline (2) Hypomagnesemia: Plan: 2nd diuretics s/p replacement with improved levels mag 2.1 today (3) Hypokalemia: Plan: Potassium 2.6 on arrival s/p replacement with improved levels still low again today replace repeat BMP am (4) Ascites: Plan: s/p paracentesis 01/12/24 with 4 L of fluid removed fluid was transudative by fluid analysis no evidence of SBP SAAG >1.2 c/w portal HTN since 01/12 had been receiving IV lasix & aldactone with stable BMPs remains on lactulose patient declined repeat paracentesis 01/17 etiology of cirrhosis?? pt denies h/o heavy alcohol abuse HepB, HepC titers negative doubt MASH/GRIFFITH but can't rule it out if BPs allow start nonselective BB for portal HTN imaging this admission showed evidence of esophageal varices will need outpatient GI referral and surveillance EGD will be needed cont PPI cont carafate hold lasix but cont aldactone hopefully can resume lasix tomorrow (5) Hepatic encephalopathy: Plan: Ammonia mildly elevated at 73.0 on arrival s/p lactulose since admission with improved mentation and improved ammonia levels titrate lactulose for 3 BMs/day she has been declining her lactulose at times, and periodically she is still confused rechecked ammonia level today - wnl (6) Anemia: Plan: B12/folate wnl Ferritin 57 transferrin sat 27%, however although latter is normal the ferritin is low end of normal added iron supplementation once daily s/p 1 unit PRBCs this admission with stable H/H since then repeat CBC am (7) Thickened endometrium: Plan: A/P CT on arrival revealed a thickened endometrium Nonemergent follow-up with gynecology is recommended upon discharge (8) Liver cirrhosis: Plan: see above (9) Portal hypertension: Plan: as noted on admission CT a/p see above (10) Fall: Plan: no fractures on extensive imaging obtained since admission including the L ankle PT, OT will need rehab (11) Esophageal varices: Plan: will need outpatient surveillance EGD ideally low-dose nadalol or inderal should be started if BPs can tolerate added PPI once daily added carafate (12) Tobacco use: Plan: Nicotine patch daily Continue to encourage cessation (13) Back pain: Plan: checked t-spine CT - NO compression fracture checked CTA chest - NO PE or pneumonia or rib fractures pain 2nd to arthritis of back? pain 2nd to straining of back due to her abdominal ascites? other? oxycodone 7.5mg q6h prn pain add gabapentin 100mg HS and tir cont heating pad Plan dispo - SNF on 01/19 patient mentioned episodes of tinnitus with ear pain followed by back pain; had these episodes at home over the last year; uncertain etiology will work this up further in a couple of days appreciate Dr Merida's consult & assistance orthotics consult today for walking boot -- appreciated can d/c tele move to med/surg Admission and Anticipated Discharge Date Admission Date: January 11, 2024 Subjective main complaint is back pain pain is in multiple locations - upper back, low back, etc. baclofen helps pain meds do help - but no full relief during my visit she was constantly moaning I asked what was wrong and she said it was her back mild L ankle pain was worse when she was getting fitted for her walking boot eating fair tele overnight wnl Review of Systems Review of Systems: CV - no chest pain pulm - no dyspnea at rest GI - abdominal distension, now willing to consider another paracentesis Physical Exam Physical Exam: gen - uncomfortable, c/o pain in back, moaning at times, can't get comfortable in the bed neck - no JVD mouth - MMM heart - RRR, s1 s2, no murmur lungs - CTA b/l abd - distended with ascites (mild to moderate) BS+, NT, no HSM ext - no edema, pulses feet 2+ b/l musculo - left ankle - ADAMA wrap in place; toes exposed - cap refill 2 seconds psych - awake/alert Results & Data Results & Data Vital Signs (Past 12 Hours) Vital Signs Temp Pulse Pulse Resp BP BP Pulse Ox 01/22/24 11:42 36.5 C 94 H 20 90/56 L 96 01/22/24 10:26 17 99 01/22/24 07:40 01/22/24 07:23 36.6 C 96 H 20 91/62 L 96 01/22/24 07:00 90 01/22/24 03:00 36.7 C 94 H 18 105/68 98 O2 Del Method 01/22/24 11:42 Room Air 01/22/24 10:26 Room Air 01/22/24 07:40 Room Air 01/22/24 07:23 Room Air 01/22/24 07:00 01/22/24 03:00 Room Air Laboratory Results Laboratory Results - last 24 hr 01/22/24 07:38 WBC 10.76 RBC 2.92 L Hgb 8.6 L Hct 25.8 L MCV 88.4 MCH 29.5 MCHC 33.3 RDW Std Deviation 53.5 H RDW Coeff of Liam 16.5 H Plt Count 179 MPV 10.3 Sodium 131 L Potassium 3.3 L Chloride 100 Carbon Dioxide 25 Anion Gap 6 BUN 19 Creatinine 1.02 Est Cr Clr Drug Dosing 49.2 eGFR 60.30 BUN/Creatinine Ratio 18.6 Glucose 103 H Calcium 8.2 L Magnesium 2.1 Ammonia 33.0 Diagnostic Findings Microbiology 01/19/24 15:00 Ankle,Left Gram Stain - Final 01/19/24 15:00 Ankle,Left Aerobic and Anaerobic Culture - Preliminary Staphylococcus aureus 01/21/24 13:00 Ankle,Left Gram Stain - Final 01/21/24 13:00 Ankle,Left Aerobic and Anaerobic Culture - Preliminary Staphylococcus aureus 01/20/24 13:10 Urine,Clean Catch Urine Culture - Preliminary Yeast not Yanelis albicans/dub 01/19/24 14:42 Blood Aerobic Blood Culture - Preliminary No growth in Aerobic bottle after 48 hours. 10/22/24 14:42 Blood Anaerobic Blood Culture - Final 01/19/24 14:41 Blood Aerobic Blood Culture - Preliminary No growth in Aerobic bottle after 48 hours. 01/19/24 14:41 Blood Anaerobic Blood Culture - Preliminary No growth in Anaerobic bottle after 48 hours. 01/12/24 15:10 Peritoneal Fluid Gram Stain - Final 01/12/24 15:10 Peritoneal Fluid Aerobic and Anaerobic Culture - Final No growth PG Care Time/CCT Total # of Minutes Spent Total Time Spent with Patient: Total time spent is greater than 50% in coordination of care (as documented) at patient's floor/unit and/or counseling patient: Coding Level of Care Code 21229 SUB INP/OBS CARE 3/50MIN Diagnoses Wound of left ankle, initial encounter S91.002A Encounter type: initial encounter Hypomagnesemia E83.42 Hypokalemia E87.6 Ascites R18.8 Hepatic encephalopathy K76.82 Anemia D64.9 Thickened endometrium R93.89 Liver cirrhosis K74.60 Portal hypertension K76.6 Fall W19.XXXA Esophageal varices I85.00 Tobacco use Z72.0 Back pain M54.9 (1) Wound of left ankle Encounter type: initial encounter Qualified Code(s): S91.002A - Unspecified open wound, left ankle, initial encounter
--- NOTE | 2024-01-22 16:09 | Infectious Disease Consult ---
Date of Consultation January 22, 2024 Assessment & Plan (1) Infected hardware in left lower extremity: (2) Wound of left ankle: (3) History of fracture of left ankle: (4) Ascites: (5) Liver cirrhosis: Plan 68yo F with h/o alcohol use d/o, h/o left ankle fracture 5yrs ago s/p ORIF who presented on 01/10 with low back pain and worsening abdominal distention over 4- 5 days. Also said she fell and hurt her ankle on arrival to the ED. She has been afebrile. Initial labs with no leukocytosis, Cr wnl, elevated LFTs. CTAP with liver cirrhosis, large volume ascites, portal HTN, esophageal varices. Left ankle XR with soft tissue swelling, no fracture. She was admitted with ascites and c/f hepatic/metabolic encephalopathy. S/p paracentesis 01/11 (100 WBC). Also started on CTX for esophageal varices. Subsequently noted to have purulent foul- smelling drainage from left ankle. TTE with valves not adequately visualized. MRI left ankle with no drainable collection, no MR e/o OM. Chest CTA for dyspnea and back pain showed no e/o PE, no consolidation. CT T spine with degenerative changes. Seen by podiatry and c/f chronic hardware infection. S/p OR 01/20 and underwent left ankle hardware removal (per op note, tight rope was immediately noted medially and laterally under both draining sinuses, with direct extension from the wound to the bone. The tight rope was still intact but did communicate with the remainder of the hardware, so all hardware was removed. With the extensive purulence in this tight rope cavity, there is likely underlying osteomyelitis as well). ID consulted 01/21. S aureus growing from bone cultures, suggesting osteomyelitis. OR note reviewed. Since WCX have MSSA, Angely changed cefepime to cefazolin. Plan for 6 weeks of abx. Since shes had OR debridement and has been on IV abx for some time, can use PO regimen on discharge for remainder of course. Ensure BCx provide final sensitivities of S aureus or e/o any other growth. # Left ankle OM # Left ankle wounds and infected hardware s/p STEPHANIE # Ascites s/p paracentesis (not c/w SBP) # Liver cirrhosis # h/o left ankle fracture s/p ORIF 5yrs ago - f/u OR cx from 01/20 - Angely stopped cefepime and started cefazolin 2g IV q8h - if OR cx has MSSA and no other organisms, then on dc, she can be changed to cefadroxil 1g PO bid to complete 6 weeks of abx starting from day of surgery (01/20, end through 03/02) - If Staph is MRSA and no other organisms, can use doxycycline on dc ensuring that precautions are taken when taking this drug (remain upright for 1hr after dose, use sunscreen, space out MVI/Ca/iron/dairy by 2 hrs after taking doxy) - if OR cx have a different organism, please reach out to ID - she can follow up with PCP or local ID provider ID will continue to follow. If questions or over the weekend, contact Infectious Disease Call Center . Sejal Holland MD [facility], Division of Infectious Diseases [facility]: [phone] Consultation Information Consultation was provided via telemedicine using two-way real-time interactive telecommunication between the patient and the telemedicine provider. For the duration of the visit, the provider was performing the assessment from a different facility than the patient. This includesuse of bluetooth stethoscope forauscultationperformed by the telepresenter that the telemedicine provider can hear if described in the physical exam. Quality Control Lab Technician contact information: Please call [facility] Call Center . (Phone Number For Physician Use Only) After establishing a telemedicine visit, patient was: Patient was verified with two unique identifiers, Patient/authorized rep acknowledged consent and understanding and Gave permission to continue telehealth session Time Spent with Patient: Initial => 75 min History of Present Illness Reason for Consultation: infected hardware left ankle, presumed OM Attending Physician: Man Duffy MD History of Present Illness 68yo F with h/o alcohol use d/o, h/o left ankle fracture 5yrs ago s/p ORIF who presented on 01/10 with low back pain and worsening abdominal distention over 4- 5 days. She reported some abdominal pressure/pain. Also said she fell and hurt her ankle on arrival to the ED. She has been afebrile. Initial labs with no leukocytosis, Cr wnl, elevated LFTs. CTAP with liver cirrhosis, large volume ascites, portal HTN, esophageal varices. Left ankle XR with soft tissue swelling, no fracture. She was admitted with ascites and c/f hepatic/metabolic encephalopathy. S/p paracentesis 01/11 (100 WBC). Also started on CTX for esophageal varices. Subsequently noted to have purulent foul-smelling drainage from left ankle. TTE with valves not adequately visualized. MRI left ankle with no drainable collection, no MR e/o OM. Chest CTA for dyspnea and back pain showed no e/o PE, no consolidation. CT T spine with degenerative changes. Seen by podiatry and c/f chronic hardware infection. S/p OR 01/20 and underwent left ankle hardware removal (per op note, tight rope was immediately noted medially and laterally under both draining sinuses, with direct extension from the wound to the bone. The tight rope was still intact but did communicate with the r emainder of the hardware, so all hardware was removed. With the extensive purulence in this tight rope cavity, there is likely underlying osteomyelitis as well). ID consulted 01/21. On evaluation, patient reports that she has had pain in her ankle for the past 3-4 years and has noticed blood/pus drainage from the wounds in the past 4 years. She had seen a surgeon and says nothing came of it. She also c/o abdominal pain and is asking for pain meds. No reported vomiting or diarrhea. Allergies Allergy/AdvReac Type Severity Reaction Status Date / Time No Known Allergies Allergy Unverified 01/11/24 14:10 Home Medications Medication Instructions Recorded Confirmed Type No Known Home Medications 01/11/24 01/11/24 History Patient History Medical History No acute medical problems Surgical History History of ankle surgery Social History Smoking Status: Current every day smoker Tobacco Type: Cigarettes Hx Alcohol Use: Yes Alcohol type: beer Hx Substance Use: No Preferred Language: Grenadian Communication Ability: Effective Auto Tech Required: No Beliefs That Will Affect Care: None Current Living Situation: Alone Feels Safe at Home: Yes Assistive Devices: None Review of System 10-point review of systems reviewed and are negative except for as above. Physical Exam Physical Exam: General: Awake, alert, no acute distress HEENT: NC/AT, EOMI, mmm Neck: supple Lungs: respirations non-labored Abdomen: soft, some mild tenderness Ext: postop dressing Skin: no rash Neuro: moving all extremities Results & Data Vital Signs (Past 12 Hours) Vital Signs Temp Pulse Pulse Resp BP BP Pulse Ox 01/22/24 15:03 18 98 01/22/24 14:34 106 H 01/22/24 11:42 36.5 C 94 H 20 90/56 L 96 01/22/24 10:26 17 99 01/22/24 07:40 01/22/24 07:23 36.6 C 96 H 20 91/62 L 96 01/22/24 07:00 90 O2 Del Method 01/22/24 15:03 Room Air 01/22/24 14:34 01/22/24 11:42 Room Air 01/22/24 10:26 Room Air 01/22/24 07:40 Room Air 01/22/24 07:23 Room Air 01/22/24 07:00 Laboratory Results Labs reviewed. 01/11 peritoneal fluid cx: ngtd 01/18 BCX: ngtd 01/18 WCX: MSSA 01/19 UCX: yeast 01/20 OR cx (bone): S aureus CTX 01/10-01/15 Cefepime 01/18-01/21 Daptomycin 01/18-01/19 Cefazolin 01/21- Diagnostic Findings Imaging reviewed. (1) Infected hardware in left lower extremity Encounter type: initial encounter Qualified Code(s): T84.7XXA - Infection and inflammatory reaction due to other internal orthopedic prosthetic devices, implants and grafts, initial encounter (2) Wound of left ankle Encounter type: initial encounter Qualified Code(s): S91.002A - Unspecified open wound, left ankle, initial encounter
[2024-01-22] MEDS: ceFAZolin 2000MG 2,000 MG/15 ML SYR IV SCH (17:22)
[2024-01-22] MEDS: GABAPENTIN 100 MG CAP PO SCH (20:12)
[2024-01-22] MEDS: HYDROmorphone INJ 0.5 MG/0.5 ML SYR IV PRN (21:58)
--- NOTE | 2024-01-22 22:13 | Podiatry Progress Note ---
Date of Service January 22, 2024 Assessment & Plan (1) Infected hardware in left lower extremity: (2) History of fracture of left ankle: (3) Wound of left ankle: Plan - Patient examined and evaluated. - Hardware successfully removed in total, now POD #1. - Can d/c to rehab when stable medically. - Should keep dressing clean, dry, intact. Ulcerations excised and primary closure obtained. - Will change dressing myself at next follow-up; can be changed as needed for bleeding/drainage, but does not need to be. - WBAT in surgical boot only. Orthotics consult d/w Dr. Duffy. May need PT/OT for ambulation - Will follow. Admission and Anticipated Discharge Date Admission Date: January 11, 2024 Subjective Pt seen at bedside. Resting comfortably but arousable. No new complaints to ankles; tolerated surgery well. Denies postoperative pain; denies infectious symptoms. Review of Systems Constitutional: + weight loss; no fever, no chills and n o fatigue Eyes: no problem reported Ear, Nose, Mouth, Throat: no problem reported Respiratory: no problem reported Cardiovascular: + edema; no problem reported Gastrointestinal: no nausea, no vomiting and no problem reported Genitourinary: no problem reported Musculoskeletal: + swelling and + limited range of motion ; no problem reported Integumentary: + non-healing lesions, + skin ulcer, + w ounds and + erythema Neurologic: + generalized weakness, + loss of sensat ion, + numbness and + paresthesia Psychiatric: no problem reported Physical Exam Physical Exam: Lower extremity exam: Surgical dressing left intact. No bleeding/strikethrough noted. No ascending cellulitis. Cultures/pathology from surgery are pending. Constitutional: WD/WN, vitals as above + ill appearing and + obese Eyes: PERRL, conjunctivae normal, anicteric sclerae ENMT: external ear and nose normal, oropharynx normal Neck: trachea midline, no thyromegaly normal visual inspection Respiratory: normal respiratory effort; no respiratory distress Cardiovascular: Rate/Rhythm: regular rate and regular rhythm Chest (Breasts): Chest: normal inspection of chest Gastrointestinal (Abdomen): Inspection/Auscultation: abdomen normal to inspection Percussion/Palpation: + abdomen tender and abdomen soft Musculoskeletal: no cyanosis or clubbing, extremities motor strength 5/5 Head/Neck/Chest: normocephalic and head atraumatic Extremities: extremities normal to inspection, + abnormal strength, + muscle atrophy and + limited ROM of lower extremity Ankle: + ankle abnormal to inspection and + limited ROM of ankle Skin: + fistulous tract Neurologic: awake; no focal motor deficits Psychiatric: A+Ox3, euthymic affect Results & Data Results & Data Vital Signs (Past 12 Hours) Vital Signs Temp Pulse Pulse Resp BP Pulse Ox O2 Del Method 01/22/24 16:00 77 16 156/85 H 97 Room Air 01/22/24 15:03 18 98 Room Air 01/22/24 14:34 106 H 01/22/24 11:42 36.5 C 94 H 20 90/56 L 96 Room Air 01/22/24 10:26 17 99 Room Air (1) Infected hardware in left lower extremity Encounter type: initial encounter Qualified Code(s): T84.7XXA - Infection and inflammatory reaction due to other internal orthopedic prosthetic devices, implants and grafts, initial encounter (3) Wound of left ankle Encounter type: initial encounter Qualified Code(s): S91.002A - Unspecified open wound, left ankle, initial encounter
[2024-01-23] MEDS: BACLOFEN 10 MG TAB PO ONE (01:13)
[2024-01-23 08:31] LABS: Hematocrit (blood only) 26.1 % (37.0-47.0); Hemoglobin 8.4 g/dl (12.0-16.0); Mean Corpuscular Hemoglobin 28.9 pg (25.0-34.0); Mean Corpuscular Hgb Conc 32.2 g/dL (32.0-36.0); Mean Corpuscular Volume 89.7 fL (80.0-100.0); Mean Platelet Volume 10.9 fL (9.4-12.4); Platelet Count 176 K/uL (130-400); RDW Coefficient of Variation 16.6 % (11.5-14.5); RDW Standard Deviation 54.5 fL (36.4-46.3); Red Blood Count 2.91 M/uL (4.20-5.40)
[2024-01-23 08:50] LABS: BUN Creatinine Ratio 15.7 (10-20); Calcium 8.1 mg/dl (8.6-10.3); Creatinine Clr Calc Pharmacy 46.4 ml/min; Potassium 3.1 mmol/L (3.5-5.1)
[2024-01-23 09:05] LABS: Thyroid Stimulating Hormone 9.474 uIu/ml (0.300-4.500)
[2024-01-23 09:39] LABS: T4 Free Thyroxine 0.83 ng/dl (0.61-1.60)
[2024-01-23] MEDS: LEVOTHYROXINE SODIUM 50 MCG TABLET PO SCH (10:35)
[2024-01-23] MEDS: BACLOFEN 10 MG TAB PO SCH (10:35)
[2024-01-23] MEDS: POTASSIUM CHLORIDE / WTR 10 MEQ/100 ML PLCT IV SCH (10:35)
[2024-01-23] MEDS: oxyCODONE HCL IR 5 MG TAB (IMMEDIATE RELEASE) PO PRN (12:15)
[2024-01-23] MEDS: metroNIDAZOLE 500 MG/100 ML BAG IV SCH (12:27)
--- NOTE | 2024-01-23 18:56 | Hospitalist Progress Note ---
Date of Service January 23, 2024 Assessment & Plan (1) Wound of left ankle: Plan: s/p ORIF for L ankle fracture about 5 years ago - [facility] - [facility] non-healing wounds both medially and laterally since that surgery wound cx from the lateral wound - MSSA remains on cefepime blood cx's are negative POD #2 - s/p left ankle hardware removal & obtainment of intra-op cultures removal of hardware was necessary due to chronic infection of such likely to have an element of osteomyelitis in the ankle due to the chronically infected wounds & hardware ID consult appreciated; recs as below: 1. stop cefepime 2. started cefazolin 2g IV q8h and use until hospital discharge; day #2 of such today 3. if OR cx has MSSA and no other organisms, then on discharge, she can be changed to cefadroxil 1g PO bid to complete 6 weeks of abx starting from day of surgery (01/20, end through 03/02) 4. If OR cx shows Staph and it is MRSA and no other organisms, can use doxycycline Of note -- wound cx from early this week also showing anaerobes thus add Flagyl IV to her Ancef Orthotics has delivered her a walking boot -- to use with ANY ambulation (2) Hypomagnesemia: Plan: 2nd diuretics s/p replacement with improved levels (3) Hypokalemia: Plan: ongoing replace with IV KCL today repeat BMP am (4) Ascites: Plan: s/p paracentesis 01/12/24 with 4 L of fluid removed fluid was transudative by fluid analysis no evidence of SBP SAAG >1.2 c/w portal HTN since 01/12 had been receiving IV lasix & aldactone with stable BMPs remains on lactulose patient declined repeat paracentesis 01/17 etiology of cirrhosis?? pt denies h/o heavy alcohol abuse HepB, HepC titers negative doubt MASH/GRIFFITH but can't rule it out if BPs allow start nonselective BB for portal HTN imaging this admission showed evidence of esophageal varices will need outpatient GI referral and surveillance EGD will be needed cont PPI cont carafate resume lasix today plan for therapeutic paracentesis on Thursday, 01/24 (5) Hepatic encephalopathy: Plan: Ammonia mildly elevated at 73.0 on arrival s/p lactulose since admission with improved mentation and improved ammonia levels titrate lactulose for 3 BMs/day she has been declining her lactulose at times, and periodically she is still confused rechecked ammonia level yesterday - wnl (6) Anemia: Plan: B12/folate wnl Ferritin 57 transferrin sat 27%, however although latter is normal the ferritin is low end of normal added iron supplementation once daily s/p 1 unit PRBCs this admission with stable H/H since then repeat CBC today stable (7) Thickened endometrium: Plan: A/P CT on arrival revealed a thickened endometrium Nonemergent follow-up with gynecology is recommended upon discharge (8) Liver cirrhosis: Plan: see above (9) Portal hypertension: Plan: as noted on admission CT a/p see above (10) Fall: Plan: no fractures on extensive imaging obtained since admission including the L ankle PT, OT will need rehab (11) Esophageal varices: Plan: will need outpatient surveillance EGD ideally low-dose nadalol or inderal should be started if BPs can tolerate added PPI once daily added carafate (12) Tobacco use: Plan: Nicotine patch daily Continue to encourage cessation (13) Back pain: Plan: checked t-spine CT - NO compression fracture checked CTA chest - NO PE or pneumonia or rib fractures pain 2nd to arthritis of back? pain 2nd to straining of back due to her abdominal ascites? other? cont oxycodone -- increase to 10mg q6h prn pain (5's and 7.5's not effective) cont gabapentin 100mg HS and titrate as tolerated cont heating pad added baclofen 5mg BID today for muscle relaxation - watch for sedation (14) Hypothyroidism: Plan: TSH is high FT4 borderline low in light of her host of medical issues, volume overload from cirrhosis, Na issues, etc - would benefit from replacement start 50mcg daily repeat TSH 6 weeks Plan dispo - SNF on 01/19 patient mentioned episodes of tinnitus with ear pain followed by back pain; had these episodes at home over the last year; uncertain etiology will work this up further in a couple of days appreciate Dr Merida's consult & assistance DVT proph - high risk of DVT - start heparin 5000 BID Admission and Anticipated Discharge Date Admission Date: January 11, 2024 Subjective resting in bed c/o L ankle pain had complained of back pain earlier in the day to staff but not during my visit does state her abdomen is sore & bloated and asks when she can have paracentesis again is eating today +stool no dyspnea at rest IV infiltrated earlier today; had IV KCL infusing; was quite painful Review of Systems Review of Systems: gen - no fevers or chills cv - no chest pain pulm - no cough GI - no vomiting Physical Exam Physical Exam: gen - looks more comfortable today, NAD, seems slightly confused neck - no JVD mouth - MMM heart - RRR, s1 s2, no murmur lungs - CTA b/l, modestly decreased BS bases abd - distended with ascites (moderate - worse than earlier this week), BS+, NT, no HSM ext - focal edema of L ankle/foot; otherwise no edema RLE; pulses feet 2+ b/l; cap refill <2 sec L foot toes musculo - left ankle - ADAMA wrap in place psych - awake/alert, seems slightly confused skin - IV infiltrate right arm (swelling); ecchymoses various locations on arms, occasional petechiae Results & Data Results & Data Vital Signs (Past 12 Hours) Vital Signs Temp Pulse Resp BP Pulse Ox O2 Del Method 01/23/24 15:58 99 H 138/86 98 Room Air 01/23/24 15:29 97 H 18 100 Room Air 01/23/24 14:18 37 C 92 H 18 117/79 98 Room Air 01/23/24 11:21 89 18 99 Room Air 01/23/24 08:01 92 H 18 100 Room Air 01/23/24 07:39 36.8 C 97 H 18 110/72 99 Room Air Laboratory Results Laboratory Results - last 24 hr 01/23/24 07:20 WBC 7.80 RBC 2.91 L Hgb 8.4 L Hct 26.1 L MCV 89.7 MCH 28.9 MCHC 32.2 RDW Std Deviation 54.5 H RDW Coeff of Liam 16.6 H Plt Count 176 MPV 10.9 Sodium 130 L Potassium 3.1 L Chloride 102 Carbon Dioxide 23 Anion Gap 5 BUN 17 Creatinine 1.08 Est Cr Clr Drug Dosing 46.4 eGFR 56.30 BUN/Creatinine Ratio 15.7 Glucose 98 Calcium 8.1 L TSH 9.474 H Free T4 0.83 PG Care Time/CCT Total # of Minutes Spent Total Time Spent with Patient: Total time spent is greater than 50% in coordination of care (as documented) at patient's floor/unit and/or counseling patient: Coding Level of Care Code 13246 SUB INP/OBS CARE MIN Diagnoses Wound of left ankle, initial encounter S91.002A Encounter type: initial encounter Hypomagnesemia E83.42 Hypokalemia E87.6 Ascites R18.8 Hepatic encephalopathy K76.82 Anemia D64.9 Thickened endometrium R93.89 Liver cirrhosis K74.60 Portal hypertension K76.6 Fall W19.XXXA Esophageal varices I85.00 Tobacco use Z72.0 Back pain M54.9 Hypothyroidism E03.9 (1) Wound of left ankle Encounter type: initial encounter Qualified Code(s): S91.002A - Unspecified open wound, left ankle, initial encounter
[2024-01-23] MEDS ORDERED: diphenhydrAMINE Capsule 25 MG CAP PO ONE (22:07)
[2024-01-23] MEDS: diphenhydrAMINE HCl 12.5 MG/5 ML UDC PO ONE (22:26)
[2024-01-24] MEDS: HEPARIN SOD 5,000 UNIT/0.5 ML VIAL SQ SCH (09:28)
[2024-01-24 09:42] LABS: Hematocrit (blood only) 23.8 % (37.0-47.0); Mean Corpuscular Hemoglobin 29.3 pg (25.0-34.0); Mean Corpuscular Hgb Conc 33.6 g/dL (32.0-36.0); Mean Corpuscular Volume 87.2 fL (80.0-100.0); Platelet Count 166 K/uL (130-400); RDW Coefficient of Variation 16.5 % (11.5-14.5); RDW Standard Deviation 52.1 fL (36.4-46.3); Red Blood Count 2.73 M/uL (4.20-5.40); White Blood Count 5.91 K/ul (4.8-10.8)
[2024-01-24 09:48] LABS: BUN Creatinine Ratio 16.5 (10-20); Calcium 8.1 mg/dl (8.6-10.3); Creatinine Clr Calc Pharmacy 64.4 ml/min; Potassium 4.1 mmol/L (3.5-5.1)
--- NOTE | 2024-01-24 10:20 | Hospitalist Progress Note ---
Date of Service January 24, 2024 Assessment & Plan (1) Wound of left ankle: Plan: POD #3 - s/p left ankle hardware removal & obtainment of intra-op cultures removal of hardware was necessary due to chronic infection of such likely has element of osteomyelitis in the ankle due to the chronically infected wounds & hardware cultures x 2 this week --> both with MSSA blood cx's negative ID consult appreciated; recs as below: 1. stop cefepime 2. started cefazolin 2g IV q8h and use until hospital discharge; day #2 of such today 3. if OR cx has MSSA and no other organisms, then on discharge, she can be changed to cefadroxil 1g PO bid to complete 6 weeks of abx starting from day of surgery (01/20, end through 03/02) 4. If OR cx shows Staph and it is MRSA and no other organisms, can use doxycycline Of note -- wound cx from early this week grew anaerobes thus added Flagyl IV to her Ancef -- day #2 of IV flagyl Orthotics has delivered her a walking boot -- to use with ANY ambulation of note -- patient had suffered a L ankle Fx about 5 years ago underwent s/p ORIF for L ankle fracture at the [facility] in [place], [place] she then developed non-healing wounds from the L ankle both medially and laterally since that surgery (2) Hypomagnesemia: Plan: 2nd diuretics s/p replacement with improved levels repeat level am (3) Hypokalemia: Plan: replaced resolved keep on supplementation repeat BMP am (4) Ascites: Plan: s/p paracentesis 01/12/24 with 4 L of fluid removed fluid was transudative by fluid analysis no evidence of SBP SAAG >1.2 c/w portal HTN since 01/12 had been receiving IV lasix & aldactone with stable BMPs remains on lactulose patient declined repeat paracentesis 01/17 etiology of cirrhosis?? pt denies h/o heavy alcohol abuse HepB, HepC titers negative doubt MASH/GRIFFITH but can't rule it out if BPs allow start nonselective BB for portal HTN imaging this admission showed evidence of esophageal varices will need outpatient GI referral and surveillance EGD will be needed cont PPI cont carafate plan for therapeutic paracentesis on Thursday, 01/24 -- ordered patient may have mild pulmonary edema causing her dyspnea - thus, lasix 20mg IV x 1 now (5) Hepatic encephalopathy: Plan: Ammonia mildly elevated at 73.0 on arrival s/p lactulose since admission with improved mentation and improved ammonia levels titrate lactulose for 3 BMs/day she has been declining her lactulose at times, and periodically she is still confused rechecked ammonia level - wnl (6) Anemia: Plan: B12/folate wnl Ferritin 57 transferrin sat 27%, however although latter is normal the ferritin is low end of normal added iron supplementation once daily s/p 1 unit PRBCs this admission with stable H/H since then repeat CBC today stable (7) Thickened endometrium: Plan: A/P CT on arrival revealed a thickened endometrium Nonemergent follow-up with gynecology is recommended upon discharge (8) Liver cirrhosis: Plan: see above (9) Portal hypertension: Plan: as noted on admission CT a/p see above (10) Fall: Plan: no fractures on extensive imaging obtained since admission including the L ankle PT, OT will need rehab (11) Esophageal varices: Plan: will need outpatient surveillance EGD ideally low-dose nadalol or inderal should be started if BPs can tolerate added PPI once daily added carafate (12) Tobacco use: Plan: Nicotine patch daily Continue to encourage cessation (13) Back pain: Plan: checked t-spine CT - NO compression fracture checked CTA chest - NO PE or pneumonia or rib fractures pain 2nd to arthritis of back? pain 2nd to straining of back due to her abdominal ascites? other? cont oxycodone -- 10mg q6h prn pain (5's and 7.5's not effective) cont gabapentin 100mg HS and titrate as tolerated cont heating pad cont baclofen 5mg BID for muscle relaxation - watch for sedation (14) Hypothyroidism: Plan: TSH is high FT4 borderline low in light of her host of medical issues, volume overload from cirrhosis, Na issues, etc - would benefit from replacement started 50mcg daily -- first dose 01/23/24 repeat TSH 6 weeks (15) Anxiety: Plan: ativan 0.25mg PO x 1 now consider SSRI or similar Plan dispo - SNF on 01/19 patient mentioned episodes of tinnitus with ear pain followed by back pain; had these episodes at home over the last year; uncertain etiology will address appreciate Dr Merida's consult & assistance DVT proph - high risk of DVT - cont heparin 5000 BID Admission and Anticipated Discharge Date Admission Date: January 11, 2024 Subjective patient lying in bed comfortably she reports that the hospital staff found her lost ring she was very excited it was found - she has had the ring for many, many years she reports abdominal discomfort/bloating asks again about paracentesis has been eating although it is fair at best c/o L ankle pain - no worse than yesterday, however back feels ok she does feel short of breath, but she reports the dyspnea in the context of being very anxious Review of Systems Review of Systems: gen - weak, fatigued; no fevers cv - no chest pain pulm - reports dyspnea; no cough GI - no nausea or emesis today; she reports having a stool earlier today Physical Exam Physical Exam: gen - tearful; while crying she reports feeling short of breath and starts to hyperventilate; before becoming tearful she was resting comfortably neck - JVD present mouth - MMM heart - RRR, s1 s2, no murmur lungs - mild rales bases b/l; no increased work of breathing abd - distended with ascites (moderate), BS+, NT, no HSM ext - focal edema of L ankle/foot; no edema RLE; pulses feet 2+ b/l; cap refill <2 sec L foot toes musculo - left ankle - ADAMA wrap in place psych - awake/alert Results & Data Results & Data Vital Signs (Past 12 Hours) Vital Signs Temp Pulse Pulse Resp BP BP Pulse Ox 01/24/24 08:38 112 H 18 99 01/24/24 08:17 36.6 C 62 12 124/86 96 01/23/24 22:30 36.5 C 77 22 106/70 96 O2 Del Method 01/24/24 08:38 Room Air 01/24/24 08:17 Room Air 01/23/24 22:30 Room Air Laboratory Results Laboratory Results - last 24 hr 01/24/24 07:16 WBC 5.91 RBC 2.73 L Hgb 8.0 L Hct 23.8 L MCV 87.2 MCH 29.3 MCHC 33.6 RDW Std Deviation 52.1 H RDW Coeff of Liam 16.5 H Plt Count 166 MPV 11.0 Sodium 131 L Potassium 4.1 D Chloride 104 Carbon Dioxide 22 Anion Gap 5 BUN 13 Creatinine 0.79 Est Cr Clr Drug Dosing 64.4 eGFR 81.93 BUN/Creatinine Ratio 16.5 Glucose 82 Calcium 8.1 L Diagnostic Findings Microbiology 01/19/24 15:00 Ankle,Left Gram Stain - Final 01/19/24 15:00 Ankle,Left Aerobic and Anaerobic Culture - Final Staphylococcus aureus 01/21/24 13:00 Ankle,Left Gram Stain - Final 01/21/24 13:00 Ankle,Left Aerobic and Anaerobic Culture - Preliminary Staphylococcus aureus 01/20/24 13:10 Urine,Clean Catch Urine Culture - Final Yeast not Yanelis albicans/dub 01/19/24 14:42 Blood Aerobic Blood Culture - Preliminary No growth in Aerobic bottle after 48 hours. 01/19/24 14:42 Blood Anaerobic Blood Culture - Final 01/19/24 14:41 Blood Aerobic Blood Culture - Preliminary No growth in Aerobic bottle after 48 hours. 01/19/24 14:41 Blood Anaerobic Blood Culture - Preliminary No growth in Anaerobic bottle after 48 hours. 01/12/24 15:10 Peritoneal Fluid Gram Stain - Final 01/12/24 15:10 Peritoneal Fluid Aerobic and Anaerobic Culture - Final No growth PG Care Time/CCT Total # of Minutes Spent Total Time Spent with Patient: Total time spent is greater than 50% in coordination of care (as documented) at patient's floor/unit and/or counseling patient: Coding Level of Care Code 74741 SUB INP/OBS CARE 3/50MIN Diagnoses Wound of left ankle, initial encounter S91.002A Encounter type: initial encounter Hypomagnesemia E83.42 Hypokalemia E87.6 Ascites R18.8 Hepatic encephalopathy K76.82 Anemia D64.9 Thickened endometrium R93.89 Liver cirrhosis K74.60 Portal hypertension K76.6 Fall W19.XXXA Esophageal varices I85.00 Tobacco use Z72.0 Back pain M54.9 Hypothyroidism E03.9 Anxiety F41.9 (1) Wound of left ankle Encounter type: initial encounter Qualified Code(s): S91.002A - Unspecified open wound, left ankle, initial encounter
[2024-01-24] MEDS: LORazepam 0.5 MG TAB PO STA (12:34)
[2024-01-24] MEDS: FUROSEMIDE INJ 20 MG/2 ML VIAL IV ONE (12:34)
[2024-01-24] MEDS: POTASSIUM CHLORIDE CRTAB 20 MEQ TABCR PO STA (12:34)
[2024-01-25 08:52] LABS: Hematocrit (blood only) 26.6 % (37.0-47.0); Hemoglobin 8.5 g/dl (12.0-16.0); Mean Corpuscular Volume 90.8 fL (80.0-100.0); Mean Platelet Volume 10.8 fL (9.4-12.4); Platelet Count 192 K/uL (130-400); RDW Coefficient of Variation 16.7 % (11.5-14.5); RDW Standard Deviation 55.4 fL (36.4-46.3); Red Blood Count 2.93 M/uL (4.20-5.40); White Blood Count 6.32 K/ul (4.8-10.8)
[2024-01-25 09:16] LABS: BUN Creatinine Ratio 15.6 (10-20); Calcium 8.3 mg/dl (8.6-10.3); Creatinine Clr Calc Pharmacy 56.5 ml/min; Magnesium 1.7 mg/dl (1.7-2.4); Potassium 4.3 mmol/L (3.5-5.1)
[2024-01-25] MEDS: FUROSEMIDE 40 MG TAB PO ONE (10:30)
[2024-01-25] MEDS: SPIRONOLACTONE 25 MG TAB PO ONE (10:30)
--- NOTE | 2024-01-25 20:44 | Hospitalist Progress Note ---
Date of Service January 25, 2024 Assessment & Plan (1) Wound of left ankle: Plan: POD #4 - s/p left ankle hardware removal & obtainment of intra-op cultures removal of hardware was necessary due to chronic infection of such likely has element of osteomyelitis in the ankle due to the chronically infected wounds & hardware cultures x 2 this week --> both with MSSA as well as anaerobic bacteria blood cx's negative ID consult appreciated; recs as below: 1. stop cefepime 2. started cefazolin 2g IV q8h and use until hospital discharge; day #3 of such today 3. if OR cx has MSSA and no other organisms, then on discharge, she can be changed to cefadroxil 1g PO bid to complete 6 weeks of abx starting from day of surgery (01/20, end through 03/02) 4. If OR cx shows Staph and it is MRSA and no other organisms, can use doxycycline Again both wound cx's have grown anaerobes thus added Flagyl IV to her Ancef -- day #3 of IV flagyl Could we do Augmentin monotherapy rather than cephalosporin/flagyl combo at time of hospital discharge?? Will need to speak with ID Orthotics has delivered her a walking boot -- to use with ANY ambulation, but patient noncompliant with it of note -- patient had suffered a L ankle Fx about 5 years ago underwent s/p ORIF for L ankle fracture at the [facility] in [place], [place] she then developed non-healing wounds from the L ankle both medially and laterally since that surgery (2) Hypomagnesemia: Plan: 2nd diuretics s/p replacement with improved levels repeat level wnl today (3) Hypokalemia: Plan: replaced resolved keep on supplementation repeat BMP am (4) Ascites: Plan: s/p paracentesis 01/12/24 with 4 L of fluid removed fluid was transudative by fluid analysis no evidence of SBP SAAG >1.2 c/w portal HTN since 01/12 had been receiving IV lasix & aldactone with stable BMPs remains on lactulose for HE prophylaxis etiology of cirrhosis?? pt denies h/o heavy alcohol abuse but I am concerned this is indeed the cause of her liver disease HepB, HepC titers negative doubt MASH/GRIFFITH but can't rule it out if BPs allow start nonselective BB for portal HTN imaging this admission showed evidence of esophageal varices will need outpatient GI referral and surveillance EGD will be needed cont PPI cont carafate plan for therapeutic paracentesis -- radiology can perform on Thursday, 01/25 diuretics -- * lasix 40mg qam * aldactone 100mg qam (increased from 50 --> 100mg today) (5) Hepatic encephalopathy: Plan: Ammonia mildly elevated at 73.0 on arrival s/p lactulose since admission with improved mentation and improved ammonia levels titrate lactulose for 2-3 BMs/day (6) Anemia: Plan: B12/folate wnl Ferritin 57 transferrin sat 27%, however although latter is normal the ferritin is low end of normal thus, cont iron supplementation once daily s/p 1 unit PRBCs this admission with stable H/H since then repeat CBC today again stable (7) Thickened endometrium: Plan: A/P CT on arrival revealed a thickened endometrium Nonemergent follow-up with gynecology is recommended upon discharge (8) Liver cirrhosis: Plan: see above (9) Portal hypertension: Plan: as noted on admission CT a/p see above (10) Fall: Plan: no fractures on extensive imaging obtained since admission including the L ankle (11) Esophageal varices: Plan: will need outpatient surveillance EGD ideally low-dose nadalol or inderal should be started if BPs can tolerate added PPI once daily added carafate (12) Tobacco use: Plan: Nicotine patch daily Continue to encourage cessation (13) Back pain: Plan: checked t-spine CT - NO compression fracture checked CTA chest - NO PE or pneumonia or rib fractures pain 2nd to arthritis of back? pain 2nd to straining of back due to her abdominal ascites? other? cont oxycodone -- 10mg q6h prn pain (5's and 7.5's not effective) cont gabapentin 100mg BID cont heating pad cont baclofen 5mg BID for muscle relaxation - watch for sedation (14) Hypothyroidism: Plan: TSH is high FT4 borderline low in light of her host of medical issues, volume overload from cirrhosis, Na issues, etc - would benefit from replacement started 50mcg daily -- first dose 01/23/24 repeat TSH 6 weeks (15) Anxiety: Plan: requiring occasional ativan about every other day has what looks like panic attacks consider SSRI or similar Plan on 01/19 patient mentioned episodes of tinnitus with ear pain followed by back pain; had these episodes at home over the last year; uncertain etiology appreciate Dr Merida's consult & assistance DVT proph - high risk of DVT - cont heparin 5000 BID late in the afternoon myself & Renate Rasheed from case management spoke to her together about rehab I HIGHLY RECOMMENDED REHAB to Ms Morrison, stating it was not really safe for her to return home at this time (she is unsteady on her feet, high risk of her L ankle wounds not healing, etc) Renate counseled patient that if she refuses PT/OT here that her insurance may not approve rehab for her she voiced understanding dispo - uncertain, but hopefully SNF patient was in the [facility] several years; [facility] [place] [facility]? appreciate social work assistance Admission and Anticipated Discharge Date Admission Date: January 11, 2024 Subjective no events pt lying in bed comfortably during the visit she does have mild back pain and mild L ankle pain oxycodone helpful unfortunately she is NOT using the walking boot when up on her left foot/ankle patient declined PT/OT 2x's today asks about her paracentesis - radiology had contacted me and reports it will be TOMORROW 01/25 she is bloated and uncomfortable very tearful during my 2nd visit with her today Review of Systems Review of Systems: gen - no fevers or chills cv - no chest pain pulm - still occasional dyspnea GI - no N/V Physical Exam Physical Exam: first visit during AM rounds: gen - best she has looked most of the last week, NAD neck - JVD resolved mouth - MMM heart - RRR, s1 s2, no murmur lungs - CTA b/l; rales resolved abd - distended with ascites (moderate) - slightly worse than yesterday, BS+, NT, no HSM ext - focal edema of L ankle/foot; no edema RLE; pulses feet 2+ b/l; cap refill <2 sec L foot toes musculo - left ankle - ADAMA wrap in place psych - awake/alert/oriented Results & Data Results & Data Vital Signs (Past 12 Hours) Vital Signs Temp Pulse Resp BP BP Pulse Ox O2 Del Method 01/25/24 19:45 36.9 C 94 H 16 105/61 97 Room Air 01/25/24 16:06 36.6 C 95 H 16 107/68 98 Room Air 01/25/24 15:27 99 H 15 99 Room Air 01/25/24 11:54 Room Air 01/25/24 11:19 90 15 98 Room Air FiO2 01/25/24 19:45 01/25/24 16:06 01/25/24 15:27 21 01/25/24 11:54 01/25/24 11:19 21 Laboratory Results Laboratory Results - last 24 hr 01/25/24 07:33 WBC 6.32 RBC 2.93 L Hgb 8.5 L Hct 26.6 L MCV 90.8 MCH 29.0 MCHC 32.0 RDW Std Deviation 55.4 H RDW Coeff of Liam 16.7 H Plt Count 192 MPV 10.8 Sodium 131 L Potassium 4.3 Chloride 103 Carbon Dioxide 25 Anion Gap 3 BUN 14 Creatinine 0.90 Est Cr Clr Drug Dosing 56.5 eGFR 70.07 BUN/Creatinine Ratio 15.6 Glucose 84 Calcium 8.3 L Magnesium 1.7 Diagnostic Findings Microbiology 01/21/24 13:00 Ankle,Left Gram Stain - Final 01/21/24 13:00 Ankle,Left Aerobic and Anaerobic Culture - Preliminary Staphylococcus aureus 01/19/24 14:42 Blood Aerobic Blood Culture - Final No growth in Aerobic bottle after 5 days. 01/19/24 14:42 Blood Anaerobic Blood Culture - Final 01/19/24 14:41 Blood Aerobic Blood Culture - Final No growth in Aerobic bottle after 5 days. 01/19/24 14:41 Blood Anaerobic Blood Culture - Final No growth in Anaerobic bottle after 5 days. 01/19/24 15:00 Ankle,Left Gram Stain - Final 01/19/24 15:00 Ankle,Left Aerobic and Anaerobic Culture - Final Staphylococcus aureus 01/20/24 13:10 Urine,Clean Catch Urine Culture - Final Yeast not Yanelis albicans/dub 01/12/24 15:10 Peritoneal Fluid Gram Stain - Final 01/12/24 15:10 Peritoneal Fluid Aerobic and Anaerobic Culture - Final No growth PG Care Time/CCT Total # of Minutes Spent Total Time Spent with Patient: Total time spent is greater than 50% in coordination of care (as documented) at patient's floor/unit and/or counseling patient: Coding Level of Care Code 66796 SUB INP/OBS CARE 50MIN Diagnoses Wound of left ankle, initial encounter S91.002A Encounter type: initial encounter Hypomagnesemia E83.42 Hypokalemia E87.6 Ascites R18.8 Hepatic encephalopathy K76.82 Anemia D64.9 Thickened endometrium R93.89 Liver cirrhosis K74.60 Portal hypertension K76.6 Fall W19.XXXA Esophageal varices I85.00 Tobacco use Z72.0 Back pain M54.9 Hypothyroidism E03.9 Anxiety F41.9 (1) Wound of left ankle Encounter type: initial encounter Qualified Code(s): S91.002A - Unspecified open wound, left ankle, initial encounter
[2024-01-26] MEDS: SPIRONOLACTONE 100 MG TAB PO SCH (08:35)
[2024-01-26 09:26] LABS: BUN Creatinine Ratio 12.1 (10-20); Creatinine Clr Calc Pharmacy 47.5 ml/min; Potassium 3.9 mmol/L (3.5-5.1)
--- NOTE | 2024-01-26 16:47 | Hospitalist Progress Note ---
Date of Service January 26, 2024 Assessment & Plan (1) Wound of left ankle: Plan: POD #4 - s/p left ankle hardware removal & obtainment of intra-op cultures removal of hardware was necessary due to chronic infection of such likely has element of osteomyelitis in the ankle due to the chronically infected wounds & hardware cultures x 2 this week --> both with MSSA as well as anaerobic bacteria blood cx's negative ID consult appreciated; recs as below: 1. stop cefepime 2. started cefazolin 2g IV q8h and use until hospital discharge; day #4 of such today 3. if OR cx has MSSA and no other organisms, then on discharge, she can be changed to cefadroxil 1g PO bid to complete 6 weeks of abx starting from day of surgery (01/20, end through 03/02) 4. If OR cx shows Staph and it is MRSA and no other organisms, can use doxycycline unclear to me whether the anaerobes are pathogenic, changed metronidazole to oral since bio availability is excellent, will discuss with infectious disease Orthotics has delivered her a walking boot -- to use with ANY ambulation, but patient noncompliant with it of note -- patient had suffered a L ankle Fx about 5 years ago underwent s/p ORIF for L ankle fracture at the [facility] in [place], [place] she then developed non-healing wounds from the L ankle both medially and laterally since that surgery (2) Hypomagnesemia: Plan: 2nd diuretics s/p replacement with improved levels (3) Hypokalemia: Plan: replaced resolved potassium 3.9 today on supplementation (4) Ascites: Plan: s/p paracentesis 01/12/24 with 4 L of fluid removed no evidence of SBP SAAG >1.2 c/w portal HTN etiology of cirrhosis - coult be ALD, MASH, other pt denies h/o heavy alcohol abuse but I am concerned this is indeed the cause of her liver disease HepB, HepC negative imaging this admission showed evidence of esophageal varices will need outpatient GI referral and surveillance EGD will be needed BP has been marginal and no history of GI bleeding, hold off on b-billie continue spironolactone 100 mg and furosemide 40 mg daily therapeutic paracentesis 01/25 update MELD labs in AM (5) Hepatic encephalopathy: Plan: Ammonia mildly elevated at 73.0 on arrival s/p lactulose since admission with improved mentation and improved ammonia levels titrate lactulose for 2-3 BMs/day (6) Anemia: Plan: B12/folate wnl Ferritin 57 transferrin sat 27%, however although latter is normal the ferritin is low end of normal thus, cont iron supplementation once daily s/p 1 unit PRBCs this admission with stable H/H since then (7) Thickened endometrium: Plan: A/P CT on arrival revealed a thickened endometrium Nonemergent follow-up with gynecology is recommended upon discharge (8) Liver cirrhosis: Plan: Cirrhosis with portal hypertension See above (9) Esophageal varices: Plan: will need outpatient surveillance EGD ideally low-dose nadalol or inderal should be started if BPs can tolerate added PPI once daily added carafate (10) Tobacco use: Plan: Nicotine patch daily Continue to encourage cessation (11) Back pain: Plan: checked t-spine CT - NO compression fracture checked CTA chest - NO PE or pneumonia or rib fractures pain 2nd to arthritis of back? pain 2nd to straining of back due to her abdominal ascites? cont oxycodone -- 10mg q6h prn pain (5's and 7.5's not effective) cont gabapentin 100mg BID cont heating pad cont baclofen 5mg BID for muscle relaxation - watch for sedation (12) Hypothyroidism: Plan: TSH is high FT4 borderline low in light of her host of medical issues, volume overload from cirrhosis, Na issues, etc - would benefit from replacement started 50mcg daily -- first dose 01/23/24 repeat TSH 6 weeks (13) Anxiety: Plan: requiring occasional ativan about every other day has what looks like panic attacks consider SSRI or similar Plan Fall - no fractures on extensive imaging obtained since admission including the L ankle DVT proph - high risk of DVT - cont heparin 5000 BID Currently planned for discharge to SNF for rehab. Medically ready for discharge. Admission and Anticipated Discharge Date Admission Date: January 11, 2024 Subjective L ankle pain unchanged Abdominal distention from ascites causing some pain and aggravating back pain Willing for SNF rehab Physical Exam 2 Physical Exam: PHYSICAL EXAMINATION Last 24h vital signs reviewed, see documentation in flowsheet General: comfortable appearing, no distress, thin woman with evidence of sarcopenia HEENT: bitemporal wasting, atraumatic, pupils round and equal, sclerae anicteric, no conjunctival injection, moist mucus membranes Lungs: Normal respiratory effort. Clear to auscultation bilaterally. No RRW Heart: Regular rate and rhythm, no murmurs. No JVD Abdomen: Soft, nontender, distended with large nontense ascites. Bowel sounds present. Extremities: Warm, dry, well-perfused. No extremity edema. left ankle is dressed Neuro: Alert and oriented x 4, face symmetric, moves 4 extremities well, no tremor or asterixis Psych: Normal affect and behavior Results & Data Results & Data Vital Signs (Past 12 Hours) Vital Signs Temp Pulse Resp BP Pulse Ox O2 Del Method 01/26/24 16:04 90 18 96 Room Air 01/26/24 14:28 36.7 C 71 16 144/82 H 95 Room Air 01/26/24 09:13 Room Air 01/26/24 07:57 36.7 C 96 H 16 101/66 98 Room Air 01/26/24 07:12 96 H 16 99 Room Air Laboratory Results 01/25/24 07:33 01/26/24 07:58 PG Care Time/CCT Total # of Minutes Spent Total Time Spent with Patient: Total time spent is greater than 50% in coordination of care (as documented) at patient's floor/unit and/or counseling patient: Coding Level of Care Code 48377 SUB INP/OBS CARE 2/35MIN Diagnoses Wound of left ankle, initial encounter S91.002A Encounter type: initial encounter Hypomagnesemia E83.42 Hypokalemia E87.6 Ascites R18.8 Hepatic encephalopathy K76.82 Anemia D64.9 Thickened endometrium R93.89 Liver cirrhosis K74.60 Esophageal varices I85.00 Tobacco use Z72.0 Back pain M54.9 Hypothyroidism E03.9 Anxiety F41.9 (1) Wound of left ankle Encounter type: initial encounter Qualified Code(s): S91.002A - Unspecified open wound, left ankle, initial encounter
--- NOTE | 2024-01-26 17:00 | Ultrasound Report ---
PROCEDURE: Ultrasound-Guided Diagnostic/Therapeutic Paracentesis CLINICAL HISTORY: recurrent ascites MEDICATIONS: Subcutaneous Lidocaine 2%. PROCEDURE: The procedure itself was explained to the patient carefully. The patient was brought into the IR suite and a time-out was performed. The patient was positioned supine on the table. Preliminar y ultrasound of the abdomen was performed to determine a safe needle entry site. The most appropriat e approach for safe needle entry site was planned and the site for puncture was marked. The right low er quadrant was prepped and draped in the usual sterile fashion. Subcutaneous 2% lidocaine was used f or local anesthesia along the expected needle tract. Under ultrasound-guidance, an 5 Welsh Yueh needle-sheath was inserted carefully into the peritoneal space towards the abdominal ascites fluid collection. The needle was removed and the sheath was conn ected to tubing and a vacuum suction device. A total of 3 800 cc of serous ascites was aspirated. The sheath was removed and a sterile dressing applied. The patient tolerated the procedure well without immediate complications. IMPRESSION: Ultrasound-guided therapeutic paracentesis. Electronically signed by: Brian Mckenzie M.D. 01/26/2024 4:59 PM
[2024-01-26] MEDS: metroNIDAZOLE 500 MG TAB PO SCH (20:18)
--- NOTE | 2024-01-26 21:05 | Podiatry Progress Note ---
Date of Service January 26, 2024 Assessment & Plan (1) Infected hardware in left lower extremity: (2) History of fracture of left ankle: (3) Wound of left ankle: Plan - Patient examined and evaluated. - Dressing removed, redressed with xeroform, 4x4, kerlix, yrn. - Can d/c to rehab when stable medically. - Should keep dressing clean, dry, intact. Can be redressed by nursing/other physicians if needed. - Cultures from hardware reveal Staph aureus. Should be treated per ID; all hardware removed. - WBAT in surgical boot only. May need PT/OT for ambulation - Will follow. Admission and Anticipated Discharge Date Admission Date: January 11, 2024 Subjective Pt seen at bedside. No new concerns. Eating lunch and tolerating boot. No new pain to ankle. Denies new s/s of infection. Review of Systems Constitutional: + weight loss; no fever, no chills and n o fatigue Eyes: no problem reported Ear, Nose, Mouth, Throat: no problem reported Respiratory: no problem reported Cardiovascular: + edema; no problem reported Gastrointestinal: no nausea, no vomiting and no problem reported Genitourinary: no problem reported Musculoskeletal: + swelling and + limited range of motion ; no problem reported Integumentary: + non-healing lesions, + skin ulcer, + w ounds and + erythema Neurologic: + generalized weakness, + loss of sensat ion, + numbness and + paresthesia Psychiatric: no problem reported Physical Exam Physical Exam: Lower extremity exam: Dressing removed, sutures/surgical sites intact. No early dehiscence. Local erythema appreciated to surgical site. Minimal pain on palpation of surgical site, consistent with level of surgical intervention. Constitutional: WD/WN, vitals as above + ill appearing and + obese Eyes: PERRL, conjunctivae normal, anicteric sclerae ENMT: external ear and nose normal, oropharynx normal Neck: trachea midline, no thyromegaly normal visual inspection Respiratory: normal respiratory effort; no respiratory distress Cardiovascular: Rate/Rhythm: regular rate and regular rhythm Chest (Breasts): Chest: normal inspection of chest Gastrointestinal (Abdomen): Inspection/Auscultation: abdomen normal to inspection Percussion/Palpation: + abdomen tender and abdomen soft Musculoskeletal: no cyanosis or clubbing, extremities motor strength 5/5 H ead/Neck/Chest: normocephalic and head atraumatic Extremities: extremities normal to inspection, + abnormal strength, + muscle atrophy and + limited ROM of lower extremity Ankle: + ankle abnormal to inspection and + limited ROM of ankle Skin: no rashes, warm and dry Neurologic: awake; no focal motor deficits Psychiatric: A+Ox3, euthymic affect Results & Data Results & Data Vital Signs (Past 12 Hours) Vital Signs Temp Pulse Resp BP BP Pulse Ox O2 Del Method 01/26/24 19:47 91 H 17 98 Room Air 01/26/24 19:42 36.8 C 91 H 18 105/64 98 Room Air 01/26/24 16:04 90 18 96 Room Air 01/26/24 14:28 36.7 C 71 16 144/82 H 95 Room Air 01/26/24 09:13 Room Air (1) Infected hardware in left lower extremity Encounter type: initial encounter Qualified Code(s): T84.7XXA - Infection and inflammatory reaction due to other internal orthopedic prosthetic devices, implants and grafts, initial encounter (3) Wound of left ankle Encounter type: initial encounter Qualified Code(s): S91.002A - Unspecified open wound, left ankle, initial encounter
[2024-01-27 07:31] LABS: Hematocrit (blood only) 23.9 % (37.0-47.0); Mean Corpuscular Hemoglobin 28.9 pg (25.0-34.0); Mean Corpuscular Hgb Conc 33.5 g/dL (32.0-36.0); Mean Corpuscular Volume 86.3 fL (80.0-100.0); Mean Platelet Volume 10.4 fL (9.4-12.4); Platelet Count 175 K/uL (130-400); RDW Coefficient of Variation 16.7 % (11.5-14.5); RDW Standard Deviation 52.8 fL (36.4-46.3); Red Blood Count 2.77 M/uL (4.20-5.40); White Blood Count 5.55 K/ul (4.8-10.8)
[2024-01-27 07:48] LABS: Albumin Globulin Ratio 0.8 (0.9-2); Albumin Level 2.4 gm/dl (3.4-5.0); BUN Creatinine Ratio 13.2 (10-20); Calcium 8.3 mg/dl (8.6-10.3); Creatinine Clr Calc Pharmacy 55.9 ml/min; Globulin 3.1 gm/dl (2.5-4.0); Potassium 3.5 mmol/L (3.5-5.1); Total Protein 5.5 gm/dl (6.0-8.3)
[2024-01-27 07:52] LABS: INR 1.1 (0.9-1.1)
--- NOTE | 2024-01-27 18:22 | Hospitalist Progress Note ---
Date of Service January 27, 2024 Assessment & Plan (1) Wound of left ankle: Plan: 01/20 underwent left ankle hardware removal & obtainment of intra-op cultures removal of hardware was necessary due to chronic infection of such likely has element of osteomyelitis in the ankle due to the chronically infected wounds & hardware cultures x 2 this week --> both with MSSA as well as anaerobic bacteria unspeciated blood cx's negative ID consult appreciated; recs as below: cefazolin 2g IV q8h and use until hospital discharge; day #5 of such today she can be changed to cefadroxil 1g PO bid to complete 6 weeks of abx starting from day of surgery (01/20, end through 03/02) continue metronidazole 500 mg po bid for same duration - discussed with Dr. Rodriguez 01/26. the MSSA is not PCN sensitive so augmentin will be unreliable for OM treatment walking boot of note -- patient had suffered a L ankle Fx about 5 years ago underwent s/p ORIF for L ankle fracture at the [facility] in [place], [place] she then developed non-healing wounds from the L ankle both medially and laterally since that surgery (2) Hypomagnesemia: Plan: 2nd diuretics s/p replacement with improved levels (3) Hypokalemia: Plan: replaced resolved potassium 3.5 today on supplementation (4) Ascites: Plan: s/p paracentesis 01/12/24 with 4 L of fluid removed, paracentesis 01/25 for 3.8L no evidence of SBP SAAG >1.2 c/w portal HTN etiology of cirrhosis - could be ALD, lacks obvious risk factors for MASH pt denies h/o heavy alcohol abuse but I am concerned this is indeed the cause of her liver disease HepB, HepC negative imaging this admission showed evidence of esophageal varices will need outpatient GI referral and surveillance EGD will be needed BP has been marginal and no history of GI bleeding, hold off on b-billie continue spironolactone 100 mg and furosemide 40 mg daily bilirubin and INR were normal on labs 01/26, Cr normal so MELD is 9 MELD improved since admission with treatment of her infection (5) Hepatic encephalopathy: Plan: Ammonia mildly elevated at 73.0 on arrival s/p lactulose since admission with improved mentation and improved ammonia levels titrate lactulose for 2-3 BMs/day (6) Anemia: Plan: B12/folate wnl Ferritin 57 transferrin sat 27%, however although latter is normal the ferritin is low end of normal thus, cont iron supplementation once daily s/p 1 unit PRBCs this admission with stable H/H since then (7) Thickened endometrium: Plan: A/P CT on arrival revealed a thickened endometrium Nonemergent follow-up with gynecology is recommended upon discharge (8) Liver cirrhosis: Plan: Cirrhosis with portal hypertension See above (9) Esophageal varices: Plan: will need outpatient surveillance EGD BP currently marginal for propranolol continue PPI once daily (10) Tobacco use: Plan: Nicotine patch daily Continue to encourage cessation (11) Back pain: Plan: checked t-spine CT - NO compression fracture checked CTA chest - NO PE or pneumonia or rib fractures pain 2nd to arthritis of back? pain 2nd to straining of back due to her abdominal ascites? cont oxycodone -- 10mg q6h prn pain (5's and 7.5's not effective) cont gabapentin 100mg BID cont heating pad cont baclofen 5mg BID for muscle relaxation - watch for sedation back pain was improved after paracentesis (12) Hypothyroidism: Plan: TSH is high FT4 borderline low in light of her host of medical issues, volume overload from cirrhosis, Na issues, etc - would benefit from replacement started 50mcg daily -- first dose 01/23/24 repeat TSH 6 weeks (13) Anxiety: Plan: requiring occasional ativan about every other day has what looks like panic attacks consider SSRI or similar Plan Fall - no fractures on extensive imaging obtained since admission including the L ankle DVT proph - high risk of DVT - cont heparin 5000 BID Currently planned for discharge to SNF for rehab. Medically ready for discharge. Admission and Anticipated Discharge Date Admission Date: January 11, 2024 Subjective abdominal and back pain improved after LVP yesterday no dyspnea L ankle pain unchanged, now wearing walking boot Physical Exam 2 Physical Exam: PHYSICAL EXAMINATION Last 24h vital signs reviewed, see documentation in flowsheet General: comfortable appearing, no distress, thin woman with evidence of sarcopenia HEENT: bitemporal wasting, atraumatic, pupils round and equal, sclerae anicteric, no conjunctival injection, moist mucus membranes Lungs: Normal respiratory effort. Clear to auscultation bilaterally. No RRW Heart: Regular rate and rhythm, no murmurs. No JVD Abdomen: Soft, nontender, distended with moderate nontense ascites. Bowel sounds present. Extremities: Warm, dry, well-perfused. No extremity edema. LLE dressed and in walking boot Neuro: Alert and oriented x 4, face symmetric, moves 4 extremities well, no tremor or asterixis Psych: Normal affect and behavior Results & Data Results & Data Vital Signs (Past 12 Hours) Vital Signs Temp Pulse Resp BP Pulse Ox O2 Del Method 01/27/24 15:38 36.7 C 100 H 18 95/58 L 96 Room Air 01/27/24 15:37 98 H 16 98 Room Air 01/27/24 11:18 88 16 98 Room Air 01/27/24 07:41 36.5 C 87 18 97/63 L 99 Room Air 01/27/24 07:32 84 16 97 Room Air Laboratory Results 01/27/24 06:40 01/27/24 06:40 PG Care Time/CCT Total # of Minutes Spent Total Time Spent with Patient: Total time spent is greater than 50% in coordination of care (as documented) at patient's floor/unit and/or counseling patient: Coding Level of Care Code 20316 SUB INP/OBS CARE 2/35MIN Diagnoses Wound of left ankle, initial encounter S91.002A Encounter type: initial encounter Hypomagnesemia E83.42 Hypokalemia E87.6 Ascites R18.8 Hepatic encephalopathy K76.82 Anemia D64.9 Thickened endometrium R93.89 Liver cirrhosis K74.60 Esophageal varices I85.00 Tobacco use Z72.0 Back pain M54.9 Hypothyroidism E03.9 Anxiety F41.9 (1) Wound of left ankle Encounter type: initial encounter Qualified Code(s): S91.002A - Unspecified open wound, left ankle, initial encounter
[2024-01-27] MEDS: FERROUS SULFATE 325 MG TAB PO SCH (19:18)
[2024-01-27] MEDS: KETOROLAC TROMETHAMINE 15 MG/ML VIAL IV ONE (19:44)
--- NOTE | 2024-01-28 17:13 | Hospitalist Progress Note ---
Date of Service January 28, 2024 Assessment & Plan (1) Wound of left ankle: Plan: 01/20 underwent left ankle hardware removal & obtainment of intra-op cultures removal of hardware was necessary due to chronic infection of such likely has element of osteomyelitis in the ankle due to the chronically infected wounds & hardware cultures x 2 this week --> both with MSSA as well as anaerobic bacteria unspeciated blood cx's negative ID consult appreciated; recs as below: cefazolin 2g IV q8h and use until hospital discharge; day #5 of such today she can be changed to cefadroxil 1g PO bid to complete 6 weeks of abx starting from day of surgery (01/20, end through 03/02) continue metronidazole 500 mg po bid for same duration - discussed with Dr. Rodriguez 01/26. the MSSA is not PCN sensitive so augmentin will be less reliable for OM treatment -sig nausea with oral metronidazole. try premedicating with dose of ondansetron ODT. if persisting will discuss alternative regimens with ID walking boot of note -- patient had suffered a L ankle Fx about 5 years ago underwent s/p ORIF for L ankle fracture at the [facility] in [place], [place] she then developed non-healing wounds from the L ankle both medially and laterally since that surgery (2) Hypomagnesemia: Plan: 2nd diuretics s/p replacement with improved levels (3) Hypokalemia: Plan: replaced resolved (4) Ascites: Plan: s/p paracentesis 01/12/24 with 4 L of fluid removed, paracentesis 01/25 for 3.8L no evidence of SBP SAAG >1.2 c/w portal HTN etiology of cirrhosis - could be ALD, lacks obvious risk factors for MASH pt denies h/o heavy alcohol abuse but I am concerned this is indeed the cause of her liver disease HepB, HepC negative imaging this admission showed evidence of esophageal varices will need outpatient GI referral and surveillance EGD will be needed BP has been marginal and no history of GI bleeding, hold off on b-billie continue spironolactone 100 mg and furosemide 40 mg daily bilirubin and INR were normal on labs 01/26, Cr normal so MELD is 9 MELD improved since admission with treatment of her infection (5) Hepatic encephalopathy: Plan: Ammonia mildly elevated at 73.0 on arrival s/p lactulose since admission with improved mentation and improved ammonia levels titrate lactulose for 2-3 BMs/day (6) Anemia: Plan: B12/folate wnl Ferritin 57 transferrin sat 27%, however although latter is normal the ferritin is low end of normal thus, cont iron supplementation once daily s/p 1 unit PRBCs this admission with stable H/H since then (7) Thickened endometrium: Plan: A/P CT on arrival revealed a thickened endometrium Nonemergent follow-up with gynecology is recommended upon discharge (8) Liver cirrhosis: Plan: Cirrhosis with portal hypertension See above (9) Esophageal varices: Plan: will need outpatient surveillance EGD BP currently marginal for propranolol continue PPI once daily (10) Tobacco use: Plan: Nicotine patch daily Continue to encourage cessation (11) Back pain: Plan: checked t-spine CT - NO compression fracture checked CTA chest - NO PE or pneumonia or rib fractures pain 2nd to arthritis of back? pain 2nd to straining of back due to her abdominal ascites? cont oxycodone -- 10mg q6h prn pain (5's and 7.5's not effective) cont gabapentin 100mg BID cont heating pad cont baclofen 5mg BID for muscle relaxation - watch for sedation back pain was improved after paracentesis (12) Hypothyroidism: Plan: TSH is high FT4 borderline low in light of her host of medical issues, volume overload from cirrhosis, Na issues, etc - would benefit from replacement started 50mcg daily -- first dose 01/23/24 repeat TSH 6 weeks (13) Anxiety: Plan: requiring occasional ativan about every other day has what looks like panic attacks consider SSRI or similar Plan Fall - no fractures on extensive imaging obtained since admission including the L ankle DVT proph - high risk of DVT - cont heparin 5000 BID Currently planned for discharge to SNF for rehab - discussed with care coord hoping will have bed Thursday. Medically ready for discharge. Admission and Anticipated Discharge Date Admission Date: January 11, 2024 Subjective doing pretty well. L ankle pain unchanged. Consistently wearing boot now Ascites remain well controlled Having significant nausea after doses of metronidazole Physical Exam Physical Exam: PHYSICAL EXAMINATION Last 24h vital signs reviewed, see documentation in flowsheet General: comfortable appearing, no distress, thin woman with evidence of sarcopenia exam unchanged 01/27: HEENT: bitemporal wasting, atraumatic, pupils round and equal, sclerae anicteric, no conjunctival injection, moist mucus membranes Lungs: Normal respiratory effort. Clear to auscultation bilaterally. No RRW Heart: Regular rate and rhythm, no murmurs. No JVD Abdomen: Soft, nontender, distended with moderate nontense ascites. Bowel sounds present. Extremities: Warm, dry, well-perfused. No extremity edema. LLE dressed and in walking boot Neuro: Alert and oriented x 4, face symmetric, moves 4 extremities well, no tremor or asterixis Psych: Normal affect and behavior Results & Data Results & Data Vital Signs (Past 12 Hours) Vital Signs Temp Pulse Resp BP BP Pulse Ox O2 Del Method 01/28/24 15:40 36.8 C 95 H 18 100/64 95 Room Air 01/28/24 15:32 84 16 96 Room Air 01/28/24 11:15 98 H 16 96 Room Air 01/28/24 08:11 36.7 C 92 H 18 105/67 98 Room Air 01/28/24 07:38 89 16 99 Room Air PG Care Time/CCT Total # of Minutes Spent Total Time Spent with Patient: Total time spent is greater than 50% in coordination of care (as documented) at patient's floor/unit and/or counseling patient: Coding Level of Care Code 39634 SUB INP/OBS CARE 2/35MIN Diagnoses Wound of left ankle, initial encounter S91.002A Encounter type: initial encounter Hypomagnesemia E83.42 Hypokalemia E87.6 Ascites R18.8 Hepatic encephalopathy K76.82 Anemia D64.9 Thickened endometrium R93.89 Liver cirrhosis K74.60 Esophageal varices I85.00 Tobacco use Z72.0 Back pain M54.9 Hypothyroidism E03.9 Anxiety F41.9 (1) Wound of left ankle Encounter type: initial encounter Qualified Code(s): S91.002A - Unspecified open wound, left ankle, initial encounter
[2024-01-28] MEDS: ONDANSETRON 4 MG OD TAB PO SCH (20:27)
[2024-01-28] MEDS: IBUPROFEN 600 MG TAB PO STA (21:19)
[2024-01-29] MEDS: KETOROLAC TROMETHAMINE 15 MG/ML VIAL IV ONE (01:16)
--- NOTE | 2024-01-29 17:18 | Hospitalist Progress Note ---
Date of Service January 29, 2024 Assessment & Plan (1) Wound of left ankle: Plan: one 68-year-old woman with cirrhosis being treated for infected left ankle, presumed to have osteomyelitis and all ankle hardware was removed this admission 01/20 underwent left ankle hardware removal & obtainment of intra-op cultures removal of hardware was necessary due to chronic infection of such likely has element of osteomyelitis in the ankle due to the chronically infected wounds & hardware cultures x 2 this week --> both with MSSA as well as anaerobic bacteria unspeciated blood cx's negative ID consult appreciated; recs as below: cefazolin 2g IV q8h and use until hospital discharge; day #5 of such today she can be changed to cefadroxil 1g PO bid to complete 6 weeks of abx starting from day of surgery (01/20, end through 03/02) continue metronidazole 500 mg po bid for same duration - discussed with Dr. Rodriguez 01/26. the MSSA is not PCN sensitive so augmentin will be less reliable for OM treatment -sig nausea with oral metronidazole. doing well premedicating with dose of ondansetron ODT. if persisting will discuss alternative regimens with ID walking boot of note -- patient had suffered a L ankle Fx about 5 years ago underwent s/p ORIF for L ankle fracture at the [facility] in [place], [place] she then developed non-healing wounds from the L ankle both medially and laterally since that surgery (2) Hypomagnesemia: Plan: 2nd diuretics s/p replacement with improved levels (3) Hypokalemia: Plan: replaced resolved (4) Ascites: Plan: s/p paracentesis 01/12/24 with 4 L of fluid removed, paracentesis 01/25 for 3.8L no evidence of SBP SAAG >1.2 c/w portal HTN etiology of cirrhosis - could be ALD, lacks obvious risk factors for MASH pt denies h/o heavy alcohol abuse but I am concerned this is indeed the cause of her liver disease HepB, HepC negative imaging this admission showed evidence of esophageal varices will need outpatient GI referral and surveillance EGD will be needed BP has been marginal and no history of GI bleeding, hold off on b-billie hold diuretics today because of mild hypotension, suspect hypovolemic, was on spironolactone 100 mg and furosemide 40 mg daily bilirubin and INR were normal on labs 01/26, Cr normal so MELD is 9 MELD improved since admission with treatment of her infection (5) Hepatic encephalopathy: Plan: Ammonia mildly elevated at 73.0 on arrival s/p lactulose since admission with improved mentation and improved ammonia levels continue daily lactulose (6) Anemia: Plan: B12/folate wnl Ferritin 57 transferrin sat 27%, however although latter is normal the ferritin is low end of normal thus, cont iron supplementation s/p 1 unit PRBCs this admission with stable H/H since then (7) Thickened endometrium: Plan: A/P CT on arrival revealed a thickened endometrium Nonemergent follow-up with gynecology is recommended upon discharge (8) Liver cirrhosis: Plan: Cirrhosis with portal hypertension See above (9) Esophageal varices: Plan: will need outpatient surveillance EGD BP currently marginal for propranolol continue PPI once daily (10) Tobacco use: Plan: Nicotine patch daily Continue to encourage cessation (11) Back pain: Plan: checked t-spine CT - NO compression fracture checked CTA chest - NO PE or pneumonia or rib fractures pain 2nd to arthritis of back? pain 2nd to straining of back due to her abdominal ascites? cont oxycodone -- 10mg q6h prn pain (5's and 7.5's not effective) cont gabapentin 100mg BID cont heating pad cont baclofen 5mg BID for muscle relaxation - watch for sedation back pain was improved after paracentesis (12) Hypothyroidism: Plan: TSH is high FT4 borderline low in light of her host of medical issues, volume overload from cirrhosis, Na issues, etc - would benefit from replacement started 50mcg daily -- first dose 01/23/24 repeat TSH 6 weeks (13) Anxiety: Plan: requiring occasional ativan about every other day has what looks like panic attacks consider SSRI or similar Plan Fall - no fractures on extensive imaging obtained since admission including the L ankle DVT proph - high risk of DVT - cont heparin 5000 BID Currently planned for discharge to SNF for rehab - discussed with care coord hoping will have bed Thursday. Medically ready for discharge. Admission and Anticipated Discharge Date Admission Date: January 11, 2024 Subjective she is tolerating the oral metronidazole pretty well with the addition of Zofran premedication blood pressure has been lower overnight and this morning and she feels mildly lightheaded no abdominal pain, ascites about the same as yesterday, left ankle pain unchanged Physical Exam Physical Exam: PHYSICAL EXAMINATION Last 24h vital signs reviewed, see documentation in flowsheet General: comfortable appearing, no distress, thin woman with evidence of sarcopenia exam unchanged 01/28 HEENT: bitemporal wasting, atraumatic, pupils round and equal, sclerae anicteric, no conjunctival injection, moist mucus membranes Lungs: Normal respiratory effort. Clear to auscultation bilaterally. No RRW Heart: Regular rate and rhythm, no murmurs. No JVD Abdomen: Soft, nontender, distended with moderate nontense ascites. Bowel sounds present. Extremities: Warm, dry, well-perfused. No extremity edema. LLE dressed Neuro: Alert and oriented x 4, face symmetric, moves 4 extremities well, no tremor or asterixis Psych: Normal affect and behavior Results & Data Results & Data Vital Signs (Past 12 Hours) Vital Signs Temp Pulse Pulse Resp BP BP Pulse Ox 01/29/24 15:25 36.8 C 91 H 18 96/61 L 96 01/29/24 14:12 85 18 94 01/29/24 12:00 36.6 C 89 16 101/61 97 01/29/24 11:15 90 16 95 01/29/24 08:00 36.3 C L 76 14 100/59 L 98 01/29/24 07:42 01/29/24 07:41 36.6 C 82 18 93/61 L 100 01/29/24 07:19 84 16 94 01/29/24 05:27 92/67 L O2 Del Method 01/29/24 15:25 Room Air 01/29/24 14:12 Room Air 01/29/24 12:00 Room Air 01/29/24 11:15 Room Air 01/29/24 08:00 Room Air 01/29/24 07:42 Room Air 01/29/24 07:41 Room Air 01/29/24 07:19 Room Air 01/29/24 05:27 PG Care Time/CCT Total # of Minutes Spent Total Time Spent with Patient: Total time spent is greater than 50% in coordination of care (as documented) at patient's floor/unit and/or counseling patient: Coding Level of Care Code 95044 SUB INP/OBS CARE 2/35MIN Diagnoses Wound of left ankle, initial encounter S91.002A Encounter type: initial encounter Hypomagnesemia E83.42 Hypokalemia E87.6 Ascites R18.8 Hepatic encephalopathy K76.82 Anemia D64.9 Thickened endometrium R93.89 Liver cirrhosis K74.60 Esophageal varices I85.00 Tobacco use Z72.0 Back pain M54.9 Hypothyroidism E03.9 Anxiety F41.9 (1) Wound of left ankle Encounter type: initial encounter Qualified Code(s): S91.002A - Unspecified open wound, left ankle, initial encounter
[2024-01-29] MEDS: HYDROmorphone INJ 0.5 MG/0.5 ML SYR IV STA (20:36)
[2024-01-30] MEDS ORDERED: ALBUTEROL HFA 8 GM INHALER INH PRN (10:12)
--- NOTE | 2024-01-30 16:20 | Hospitalist Progress Note ---
<Statement entered by Mya Camp MD - 01/30/24 18:38> I have reviewed vital signs, chart notes, labs and imaging. I have personally seen, evaluated and examined the patient. I have also discussed the management of the patient with the KIM and I agree with the exam findings documented in the history and physical examination and the documented assessment and plan unless otherwise stated below. We took down her dressing today and the left ankle appears to be healing well, there is no erythema or drainage lateral and medial incisions sutures are intact obtained reviewed routine labs today including CBC white blood count normal at 9, hemoglobin 8.6 which is improved, she has hyponatremia with sodium of 131, creatinine 1.18 plan to resume oral diuretics Date of Service January 30, 2024 Assessment & Plan (1) Wound of left ankle: Plan: Crys is a 68-year-old woman with cirrhosis being treated for infected left ankle, presumed to have osteomyelitis and all ankle hardware was removed this admission. Dressing and boot in place. 01/20 underwent left ankle hardware removal & obtainment of intra-op cultures removal of hardware was necessary due to chronic infection of such likely has element of osteomyelitis in the ankle due to the chronically infected wounds & hardware cultures x 2 this week --> both with MSSA as well as anaerobic bacteria unspeciated blood cx's negative ID consult appreciated; recs as below: cefazolin 2g IV q8h and use until hospital discharge; day #5 of such today she can be changed to cefadroxil 1g PO bid to complete 6 weeks of abx starting from day of surgery (01/20, end through 03/02) continue metronidazole 500 mg po bid for same duration - discussed with Dr. Rodriguez 01/26. The MSSA is not PCN sensitive so augmentin will be less reliable for OM treatment -sig nausea with oral metronidazole. doing well premedicating with dose of ondansetron ODT. She is tolerating this well. walking boot of note -- patient had suffered a L ankle Fx about 5 years ago underwent s/p ORIF for L ankle fracture at the [facility] in [place], [place] she then developed non-healing wounds from the L ankle both medially and laterally since that surgery (2) Hypomagnesemia: Plan: 2nd diuretics s/p replacement with improved levels (3) Hypokalemia: Plan: replaced and resolved BMP today (4) Ascites: Plan: s/p paracentesis 01/12/24 with 4 L of fluid removed, paracentesis 01/25 for 3.8L no evidence of SBP SAAG >1.2 c/w portal HTN Etiology of cirrhosis - could be ALD, lacks obvious risk factors for MASH pt denies h/o heavy alcohol abuse but I am concerned this is indeed the cause of her liver disease HepB, HepC negative imaging this admission showed evidence of esophageal varices will need outpatient GI referral and surveillance EGD will be needed BP has been marginal and no history of GI bleeding, hold off on b-billie Held diuretics because of mild hypotension, suspect hypovolemic, was on spironolactone 100 mg and furosemide 40 mg daily - restart starting tomorrow AM. BMP today. May need to do half doses if BP drops. bilirubin and INR were normal on labs 01/26, Cr normal so MELD is 9 MELD improved since admission with treatment of her infection (5) Hepatic encephalopathy: Plan: Ammonia mildly elevated at 73.0 on arrival s/p lactulose since admission with improved mentation and improved ammonia levels -Continue daily lactulose (6) Anemia: Plan: B12/folate wnl Ferritin 57 transferrin sat 27%, however although latter is normal the ferritin is low end of normal thus, cont iron supplementation s/p 1 unit PRBCs this admission with stable H/H since then (7) Thickened endometrium: Plan: A/P CT on arrival revealed a thickened endometrium Nonemergent follow-up with gynecology is recommended upon discharge (8) Liver cirrhosis: Plan: Cirrhosis with portal hypertension See above (9) Esophageal varices: Plan: will need outpatient surveillance EGD BP currently marginal for propranolol continue PPI once daily (10) Tobacco use: Plan: Nicotine patch daily Continue to encourage cessation (11) Back pain: Plan: checked t-spine CT - NO compression fracture checked CTA chest - NO PE or pneumonia or rib fractures pain 2nd to arthritis of back? pain 2nd to straining of back due to her abdominal ascites? cont oxycodone -- 10mg q6h prn pain (5's and 7.5's not effective) cont gabapentin 100mg BID cont heating pad cont baclofen 5mg BID for muscle relaxation - watch for sedation back pain was improved after paracentesis (12) Hypothyroidism: Plan: TSH is high FT4 borderline low in light of her host of medical issues, volume overload from cirrhosis, Na issues, etc - would benefit from replacement started 50mcg daily -- first dose 01/23/24 repeat TSH 6 weeks (13) Anxiety: Plan: requiring occasional ativan about every other day has what looks like panic attacks consider SSRI or similar Plan Fall - no fractures on extensive imaging obtained since admission including the L ankle DVT proph - high risk of DVT - cont heparin 5000 BID Currently planned for discharge to SNF for rehab - discussed with care coord hoping will have bed Thursday. Medically ready for discharge. Admission and Anticipated Discharge Date Admission Date: January 11, 2024 Subjective Bonnie is resting in bed. She continues with complaints of LLE pain, abdominal pain and back pain. She states none of her pain is new and has been ongoing. She feels her stomach is getting a little tighter - diuretics are currently on hold due to hypotension. She does have Oxycodone for pain relief. LLE dressing changed today. Review of Systems Constitutional: no fever and no chills Respiratory: no cough and no dyspnea Cardiovascular: no chest pain Gastrointestinal: + abdominal pain; no nausea, no vomiting and no constipation Genitourinary: no dysuria, no difficulty urinating, no urinary frequency and no urinary hesitancy Musculoskeletal: + back pain Integumentary: + problem reported (LE wound, dressing a nd boot in place) Physical Exam Constitutional: WD/WN, vitals as above Eyes: PERRL, conjunctivae normal, anicteric sclerae Neck: trachea midline Respiratory: normal respiratory effort, lungs clear to auscultation Cardiovascular: RRR, no murmur, no edema Gastrointestinal (Abdomen): Inspection/Auscultation: + abdomen distended and normal bowel sounds Percussion/Palpation: + abdomen tender (Throughout), abdomen soft and + ascites Musculoskeletal: Extremities: + lower leg abnormality (Dressing/Boot in Place, toes + sensation, + movement. ) Left Sutures intact with small amount of drainage on dressing. No erythema/warmth. Neurologic: awake Psychiatric: Orientation: alert and oriented x 3 Results & Data Results & Data Vital Signs (Past 12 Hours) Vital Signs Temp Pulse Resp BP Pulse Ox O2 Del Method 01/30/24 14:51 36.6 C 99 H 16 109/71 99 Room Air 01/30/24 08:01 36.6 C 86 16 101/69 97 Room Air PG Care Time/CCT Total # of Minutes Spent Total Time Spent with Patient: Total time spent is greater than 50% in coordination of care (as documented) at patient's floor/unit and/or counseling patient: Coding [place] [address] SUB INP/OBS CARE 2/35MIN Patient Type Established History Expanded Problem Focused Exam Expanded Problem Focused Medical Decision Making Moderate Complexity Diagnoses Wound of left ankle, initial encounter S91.002A Encounter type: initial encounter Hypomagnesemia E83.42 Hypokalemia E87.6 Ascites R18.8 Hepatic encephalopathy K76.82 Anemia D64.9 Thickened endometrium R93.89 Liver cirrhosis K74.60 Esophageal varices I85.00 Tobacco use Z72.0 Back pain M54.9 Hypothyroidism E03.9 Anxiety F41.9 (1) Wound of left ankle Encounter type: initial encounter Qualified Code(s): S91.002A - Unspecified open wound, left ankle, initial encounter
[2024-01-30 17:04] LABS: Hematocrit (blood only) 27.2 % (37.0-47.0); Hemoglobin 8.6 g/dl (12.0-16.0); Mean Corpuscular Hemoglobin 28.9 pg (25.0-34.0); Mean Corpuscular Hgb Conc 31.6 g/dL (32.0-36.0); Mean Corpuscular Volume 91.3 fL (80.0-100.0); Mean Platelet Volume 10.8 fL (9.4-12.4); Platelet Count 167 K/uL (130-400); RDW Coefficient of Variation 16.8 % (11.5-14.5); RDW Standard Deviation 55.4 fL (36.4-46.3); Red Blood Count 2.98 M/uL (4.20-5.40); White Blood Count 9.54 K/ul (4.8-10.8)
[2024-01-30 17:16] LABS: BUN Creatinine Ratio 17.8 (10-20); Calcium 8.4 mg/dl (8.6-10.3); Creatinine Clr Calc Pharmacy 43.1 ml/min; Potassium 4.3 mmol/L (3.5-5.1)
[2024-01-31] MEDS ORDERED: SIMETHICONE 80 MG CHEW PO PRN (15:19)
--- NOTE | 2024-01-31 15:24 | Hospitalist Progress Note ---
<Statement entered by Mya Camp MD - 01/31/24 15:53> I have reviewed vital signs, chart notes, labs and imaging. I have personally seen, evaluated and examined the patient. I have also discussed the management of the patient with the KIM and I agree with the exam findings documented in the history and physical examination and the documented assessment and plan unless otherwise stated below. Ascites remain mild to moderate however she has a lot of gassy distention and is tympanic. She has some differential pitting edema more on the right side of her back and flank compared to the left. no ecchymoses on her back flank or abdomen. There is some mild erythema right abdominal wall/flank near the midaxillary line does not appear indurated or warm reviewed radiology and she does have significant scoliosis that probably explains the asymmetric appearance of her back will reexamine tomorrow with respect to the differential pitting edema and mild erythema on her right side Date of Service January 31, 2024 Assessment & Plan (1) Wound of left ankle: Plan: Crys is a 68-year-old woman with cirrhosis being treated for infected left ankle, presumed to have osteomyelitis and all ankle hardware was removed this admission. Dressing and boot in place. 01/20 underwent left ankle hardware removal & obtainment of intra-op cultures removal of hardware was necessary due to chronic infection of such likely has element of osteomyelitis in the ankle due to the chronically infected wounds & hardware cultures x 2 this week --> both with MSSA as well as anaerobic bacteria unspeciated blood cx's negative ID consult appreciated; recs as below: cefazolin 2g IV q8h and use until hospital discharge; on discharge she can be changed to cefadroxil 1g PO bid to complete 6 weeks of abx starting from day of surgery (01/20, end through 03/02) continue metronidazole 500 mg po bid for same duration - discussed with Dr. Rodriguez 01/26. The MSSA is not PCN sensitive so augmentin will be less reliable for OM treatment -sig nausea with oral metronidazole. doing well premedicating with dose of ondansetron ODT. She is tolerating this well. walking boot of note -- patient had suffered a L ankle Fx about 5 years ago underwent s/p ORIF for L ankle fracture at the [facility] in [place], [place] she then developed non-healing wounds from the L ankle both medially and laterally since that surgery (2) Hypomagnesemia: Plan: 2nd diuretics s/p replacement with improved levels (3) Hypokalemia: Plan: replaced and resolved BMP yesterday - K 4.3 (4) Ascites: Plan: s/p paracentesis 01/12/24 with 4 L of fluid removed, paracentesis 01/25 for 3.8L no evidence of SBP SAAG >1.2 c/w portal HTN Etiology of cirrhosis - could be ALD, lacks obvious risk factors for MASH pt denies h/o heavy alcohol abuse but I am concerned this is indeed the cause of her liver disease HepB, HepC negative imaging this admission showed evidence of esophageal varices will need outpatient GI referral and surveillance EGD will be needed BP has been marginal and no history of GI bleeding, hold off on b-billie Held diuretics because of mild hypotension, suspect hypovolemic, was on spironolactone 100 mg and furosemide 40 mg daily - restart starting tomorrow AM. BMP today. May need to do half doses if BP drops. bilirubin and INR were normal on labs 01/26, Cr normal so MELD is 9 MELD improved since admission with treatment of her infection (5) Hepatic encephalopathy: Plan: Ammonia mildly elevated at 73.0 on arrival s/p lactulose since admission with improved mentation and improved ammonia levels. Pt reporting a lot of abdominal discomfort today and early satiety, may be secondary to gas - simethicone QID PRN ordered and lactulose discontinued. If she has issues with constipation, would recommend starting miralax. (6) Anemia: Plan: B12/folate wnl Ferritin 57 transferrin sat 27%, however although latter is normal the ferritin is low end of normal thus, cont iron supplementation s/p 1 unit PRBCs this admission with stable H/H since then (7) Thickened endometrium: Plan: A/P CT on arrival revealed a thickened endometrium Nonemergent follow-up with gynecology is recommended upon discharge (8) Liver cirrhosis: Plan: Cirrhosis with portal hypertension See above (9) Esophageal varices: Plan: will need outpatient surveillance EGD BP currently marginal for propranolol continue PPI once daily (10) Tobacco use: Plan: Nicotine patch daily Continue to encourage cessation (11) Back pain: Plan: checked t-spine CT - NO compression fracture checked CTA chest - NO PE or pneumonia or rib fractures pain 2nd to arthritis of back? pain 2nd to straining of back due to her abdominal ascites? cont oxycodone -- 10mg q6h prn pain (5's and 7.5's not effective) cont gabapentin 100mg BID cont heating pad cont baclofen 5mg BID for muscle relaxation - watch for sedation back pain was improved after paracentesis (12) Hypothyroidism: Plan: TSH is high FT4 borderline low in light of her host of medical issues, volume overload from cirrhosis, Na issues, etc - would benefit from replacement started 50mcg daily -- first dose 01/23/24 repeat TSH 6 weeks (13) Anxiety: Plan: requiring occasional ativan about every other day has what looks like panic attacks consider SSRI or similar Plan Fall - no fractures on extensive imaging obtained since admission including the L ankle DVT proph - high risk of DVT - cont heparin 5000 BID Currently planned for discharge to SNF for rehab - discussed with care coord hoping will have bed Thursday. Medically ready for discharge. Admission and Anticipated Discharge Date Admission Date: January 11, 2024 Subjective Bonnie is resting in bed. She continues with complaints of LLE pain, abdominal pain and back pain. She states none of her pain is new and has been ongoing. She feels her stomach is getting a little tighter - diuretics restarted today. Reports early satiety. Trying to eat as much as she can. She does feel hungry. She does have Oxycodone for pain relief and reports improvement with that. Reports R sided "bruising" noted on her abdomen today. Reports occasional dyspnea but denies any chest pain. Review of Systems Constitutional: no fever and no chills Respiratory: no cough and no dyspnea Cardiovascular: no chest pain Gastrointestinal: + abdominal pain (RLQ "bruising" reporte d); no nausea, no vo miting and no constipation Genitourinary: no dysuria, no difficulty urinating, no urinary frequency and no urinary hesitancy Musculoskeletal: + back pain Integumentary: + problem reported (LE wound, dressing a nd boot in place) Physical Exam Constitutional: WD/WN, vitals as above Eyes: PERRL, conjunctivae normal, anicteric sclerae Neck: trachea midline Respiratory: normal respiratory effort, lungs clear to auscultation (R upper back mildly pitting edema) Cardiovascular: RRR, no murmur, no edema Gastrointestinal (Abdomen): Inspection/Auscultation: + abdomen distended (R mid-lower quadrant erythema) and normal bowel sounds Percussion/Palpation: + abdomen tender (Throughout), abdomen soft, + ascites and + tympanic to percussion Musculoskeletal: Extremities: + lower leg abnormality (Dressing/Boot in Place) Neurologic: awake Psychiatric: Orientation: alert and oriented x 3 Results & Data Results & Data Vital Signs (Past 12 Hours) Vital Signs Temp Pulse Resp BP Pulse Ox O2 Del Method 01/31/24 14:58 36.6 C 99 H 16 103/63 98 Room Air 01/31/24 07:22 36.7 C 91 H 16 108/68 99 Room Air Laboratory Results 01/30/24 Range/Units 16:50 WBC 9.54 (4.8-10.8) K/ul RBC 2.98 L (4.20-5.40) M/uL Hgb 8.6 L (12.0-16.0) g/dl Hct 27.2 L (37.0-47.0) % MCV 91.3 (80.0-100.0) fL MCH 28.9 (25.0-34.0) pg MCHC 31.6 L (32.0-36.0) g/dL RDW Std Deviation 55.4 H (36.4-46.3) fL RDW Coeff of Liam 16.8 H (11.5-14.5) % Plt Count 167 (130-400) K/uL MPV 10.8 (9.4-12.4) fL Sodium 131 L (136-145) mmol/L Potassium 4.3 (3.5-5.1) mmol/L Chloride 100 (98-107) mmol/L Carbon Dioxide 26 (21-32) mmol/L Anion Gap 5 (3-11) BUN 21 (6-23) mg/dl Creatinine 1.18 (0.6-1.2) mg/dl Est Cr Clr Drug Dosing 43.1 ml/min eGFR 50.62 BUN/Creatinine Ratio 17.8 (10-20) Glucose 87 (70-99(Fasting)) mg/dl Calcium 8.4 L (8.6-10.3) mg/dl PG Care Time/CCT Total # of Minutes Spent Total Time Spent with Patient: Total time spent is greater than 50% in coordination of care (as documented) at patient's floor/unit and/or counseling patient: Coding [place] [address] SUB INP/OBS CARE 2/35MIN Patient Type Established History Expanded Problem Focused Exam Expanded Problem Focused Medical Decision Making Moderate Complexity Diagnoses Wound of left ankle, initial encounter S91.002A Encounter type: initial encounter Hypomagnesemia E83.42 Hypokalemia E87.6 Ascites R18.8 Hepatic encephalopathy K76.82 Anemia D64.9 Thickened endometrium R93.89 Liver cirrhosis K74.60 Esophageal varices I85.00 Tobacco use Z72.0 Back pain M54.9 Hypothyroidism E03.9 Anxiety F41.9 (1) Wound of left ankle Encounter type: initial encounter Qualified Code(s): S91.002A - Unspecified open wound, left ankle, initial encounter
--- NOTE | 2024-02-01 17:01 | Hospitalist Progress Note ---
Date of Service February 01, 2024 Assessment & Plan (1) Wound of left ankle: Plan: Crys is a 68-year-old woman with cirrhosis being treated for infected left ankle, presumed to have osteomyelitis and all ankle hardware was removed this admission. Dressing and boot in place. 01/20 underwent left ankle hardware removal & obtainment of intra-op cultures removal of hardware was necessary due to chronic infection of such likely has element of osteomyelitis in the ankle due to the chronically infected wounds & hardware cultures x 2 this week --> both with MSSA as well as anaerobic bacteria unspeciated blood cx's negative ID consult appreciated; recs as below: cefazolin 2g IV q8h and use until hospital discharge; on discharge she can be changed to cefadroxil 1g PO bid to complete 6 weeks of abx starting from day of surgery (01/20, end through 03/02) continue metronidazole 500 mg po bid for same duration - discussed with Dr. Rodriguez 01/26. The MSSA is not PCN sensitive so augmentin will be less reliable for OM treatment -sig nausea with oral metronidazole. doing well premedicating with dose of ondansetron ODT. She is tolerating this well. walking boot of note -- patient had suffered a L ankle Fx about 5 years ago underwent s/p ORIF for L ankle fracture at the [facility] in [place], [place] she then developed non-healing wounds from the L ankle both medially and laterally since that surgery (2) Hypomagnesemia: Plan: 2nd diuretics s/p replacement with improved levels (3) Hypokalemia: Plan: replaced and resolved (4) Ascites: Plan: s/p paracentesis 01/12/24 with 4 L of fluid removed, paracentesis 01/25 for 3.8L no evidence of SBP SAAG >1.2 c/w portal HTN Etiology of cirrhosis - could be ALD, lacks obvious risk factors for MASH pt denies h/o heavy alcohol abuse but I am concerned this is indeed the cause of her liver disease HepB, HepC negative imaging this admission showed evidence of esophageal varices will need outpatient GI referral and surveillance EGD will be needed BP has been marginal and no history of GI bleeding, hold off on b-billie Held diuretics because of mild hypotension thursday/thursday, resumed today. BP now normal but has symptomatic orthostatic hypotension. added midodrine. if this doesn't resolve it will have to reduce diuretics. she tends to be very symptomatic of not very large ascites Moderate asymptomatic hyponatremia - related to cirrhosis MELD improved since admission with treatment of her infection AM CBC CMP INR for electrolytes/renal function/MELD (5) Hepatic encephalopathy: Plan: Ammonia mildly elevated at 73.0 on arrival s/p lactulose since admission with improved mentation and improved ammonia levels. intolerant of lactulose - she became very gassy and distended, uncomfortable, on once a day lactulose. liver is more compensated so she may not need it any more. -stopped lactulose -if HE or constipation can use miralax plus/minus rifaximin instead (6) Anemia: Plan: B12/folate wnl Ferritin 57 transferrin sat 27%, however although latter is normal the ferritin is low end of normal thus, cont iron supplementation s/p 1 unit PRBCs this admission with stable H/H since then (7) Thickened endometrium: Plan: A/P CT on arrival revealed a thickened endometrium Nonemergent follow-up with gynecology is recommended upon discharge (8) Liver cirrhosis: Plan: Cirrhosis with portal hypertension See above (9) Esophageal varices: Plan: will need outpatient surveillance EGD BP currently marginal for propranolol continue PPI once daily (10) Tobacco use: Plan: Nicotine patch daily Continue to encourage cessation (11) Back pain: Plan: checked t-spine CT - NO compression fracture checked CTA chest - NO PE or pneumonia or rib fractures pain 2nd to arthritis of back? pain 2nd to straining of back due to her abdominal ascites? cont oxycodone -- 10mg q6h prn pain (5's and 7.5's not effective) cont gabapentin 100mg BID cont heating pad cont baclofen 5mg BID for muscle relaxation - watch for sedation back pain was improved after paracentesis (12) Hypothyroidism: Plan: TSH is high FT4 borderline low in light of her host of medical issues, volume overload from cirrhosis, Na issues, etc - would benefit from replacement started 50mcg daily -- first dose 01/23/24 repeat TSH 6 weeks (13) Anxiety: Plan: no panic attacks this week consider SSRI or similar Plan Fall - no fractures on extensive imaging obtained since admission including the L ankle DVT proph - high risk of DVT - cont heparin 5000 BID Currently planned for discharge to SNF for rehab - insurance denied peer to peer request for SNF today, initially citing that she was independent because she walked 30 feet on 01/26 with SBA, later citing that she was medically unstable because she was orthostatic today. Will plan to resubmit in 1-2 days. Admission and Anticipated Discharge Date Admission Date: January 11, 2024 Subjective supine BP has been normal but she was orthostatic with PT, symptomatic of lightheadedness today bowel distention much improved off lactulose Physical Exam Physical Exam: PHYSICAL EXAMINATION Last 24h vital signs reviewed, see documentation in flowsheet General: comfortable appearing, no distress, thin woman with evidence of sarcopenia exam unchanged 01/29 except that abdomen no longer as distended and tympanic HEENT: bitemporal wasting, atraumatic, pupils round and equal, sclerae anicteric, no conjunctival injection, moist mucus membranes Lungs: Normal respiratory effort. Clear to auscultation bilaterally. No RRW Heart: Regular rate and rhythm, no murmurs. No JVD Abdomen: Soft, nontender, distended with moderate nontense ascites. no longer gassy/tympanic. +BT Extremities: Warm, dry, well-perfused. No extremity edema. LLE dressed Neuro: Alert and oriented x 4, face symmetric, moves 4 extremities well, no tremor or asterixis Psych: Normal affect and behavior Results & Data Results & Data Vital Signs (Past 12 Hours) Vital Signs Temp Pulse Resp BP Pulse Ox O2 Del Method 02/01/24 14:50 36.9 C 97 H 16 98/63 L 96 Room Air 02/01/24 07:13 36.5 C 87 16 116/77 98 Room Air PG Care Time/CCT Total # of Minutes Spent Total Time Spent with Patient: I personally spent: 50 minutes today on clinical care activities including: reviewing chart notes and vital signs discussion with healthcare interpreter, physical therapist peer to peer call with certified ophthalmic medical technician at her insurance company examining and counseling the patient writing orders documentation Coding Level of Care Code 65105 SUB INP/OBS CARE 3/50MIN Diagnoses Wound of left ankle, initial encounter S91.002A Encounter type: initial encounter Hypomagnesemia E83.42 Hypokalemia E87.6 Ascites R18.8 Hepatic encephalopathy K76.82 Anemia D64.9 Thickened endometrium R93.89 Liver cirrhosis K74.60 Esophageal varices I85.00 Tobacco use Z72.0 Back pain M54.9 Hypothyroidism E03.9 Anxiety F41.9 (1) Wound of left ankle Encounter type: initial encounter Qualified Code(s): S91.002A - Unspecified open wound, left ankle, initial encounter
[2024-02-01] MEDS: MIDODRINE HCL 2.5 MG TAB PO SCH (17:51)
[2024-02-02 07:32] LABS: Hemoglobin 7.9 g/dl (12.0-16.0); Mean Corpuscular Hemoglobin 29.2 pg (25.0-34.0); Mean Corpuscular Hgb Conc 32.9 g/dL (32.0-36.0); Mean Corpuscular Volume 88.6 fL (80.0-100.0); Mean Platelet Volume 10.7 fL (9.4-12.4); Platelet Count 171 K/uL (130-400); RDW Coefficient of Variation 16.4 % (11.5-14.5); RDW Standard Deviation 52.6 fL (36.4-46.3); Red Blood Count 2.71 M/uL (4.20-5.40); White Blood Count 8.02 K/ul (4.8-10.8)
[2024-02-02 07:48] LABS: Albumin Globulin Ratio 0.8 (0.9-2); Albumin Level 2.4 gm/dl (3.4-5.0); BUN Creatinine Ratio 23.5 (10-20); Bilirubin,Total 0.8 mg/dl (0.2-1.0); Calcium 8.3 mg/dl (8.6-10.3); Creatinine Clr Calc Pharmacy 44.2 ml/min; Globulin 2.9 gm/dl (2.5-4.0); Potassium 3.9 mmol/L (3.5-5.1); Total Protein 5.3 gm/dl (6.0-8.3)
[2024-02-02 07:54] LABS: INR 1.1 (0.9-1.1); Prothrombin Time 11.9 Seconds (9.0-12.0)
[2024-02-02] MEDS: MIDODRINE HCL 2.5 MG TAB PO SCH (13:07)
--- NOTE | 2024-02-02 18:55 | Hospitalist Progress Note ---
Date of Service February 02, 2024 Assessment & Plan (1) Wound of left ankle: Plan: 01/21/24 - s/p left ankle hardware removal & obtainment of intra-op cultures removal of hardware was necessary due to chronic infection of such likely has element of osteomyelitis in the ankle due to the chronically infected wounds & hardware cultures x 2 with MSSA as well as anaerobic bacteria blood cx's negative remains on cefazolin 2g IV q8h remains on flagyl 500mg PO BID cont walking boot with ambulation suture removal 02/03? of note -- patient had suffered a L ankle Fx about 5 years ago underwent s/p ORIF for L ankle fracture at the [facility] in [place], [place] she then developed non-healing wounds from the L ankle both medially and laterally since that surgery (2) Abdominal wall cellulitis: Plan: question of right-sided abdominal wall already on ancef will add daptomycin doubt SBP since it is so focal but consider diagnostic paracentesis if pain in abdomen persists (3) Orthostasis: Plan: ongoing increase midodrine to 7.5mg TID (4) Hypomagnesemia: Plan: replaced resolved (5) Hypokalemia: Plan: replaced resolved (6) Ascites: Plan: s/p paracentesis 01/12/24 with 4 L of fluid removed s/p paracentesis 01/26/24 with similar amount of fluid removed fluid was transudative by fluid analysis no evidence of SBP SAAG >1.2 c/w portal HTN etiology of cirrhosis?? pt denies h/o heavy alcohol abuse but I am concerned this is indeed the cause of her liver disease HepB, HepC titers negative doubt MASH/GRIFFITH but can't rule it out not a candidate for beta billie therapy due to orthostasis imaging this admission showed evidence of esophageal varices will need outpatient GI referral and surveillance EGD will be needed cont PPI cont lasix 40mg qam cont aldactone 100mg qam but may need to adjust doses if orthostasis continues (7) Hepatic encephalopathy: Plan: Ammonia mildly elevated at 73.0 on arrival s/p lactulose with resolution does not tolerate lactulose - causes too much gaseous distension may need rifaximin (8) Anemia: Plan: B12/folate wnl Ferritin 57 transferrin sat 27%, however although latter is normal the ferritin is low end of normal thus, cont iron supplementation once daily s/p 1 unit PRBCs this admission with stable H/H since then repeat CBC - Hb 7.9 - consider another transfusion as this may help orthostasis repeat CBC am (9) Thickened endometrium: Plan: A/P CT on arrival revealed a thickened endometrium Nonemergent follow-up with gynecology is recommended upon discharge (10) Liver cirrhosis: Plan: see above (11) Portal hypertension: Plan: as noted on admission CT a/p see above (12) Fall: Plan: no fractures on extensive imaging obtained since admission including the L ankle (13) Esophageal varices: Plan: will need outpatient surveillance EGD ideally low-dose nadalol or inderal should be started if BPs can tolerate cont PPI once daily (14) Tobacco use: Plan: Nicotine patch daily Continue to encourage cessation (15) Back pain: Plan: checked t-spine CT - NO compression fracture checked CTA chest - NO PE or pneumonia or rib fractures pain 2nd to arthritis of back? cont oxycodone -- reordered 5mg q6h prn pain cont gabapentin - increase to 300mg HS cont baclofen 5mg BID for muscle relaxation - watch for sedation (16) Hypothyroidism: Plan: TSH is high FT4 borderline low in light of her host of medical issues, volume overload from cirrhosis, Na issues, etc - would benefit from replacement started 50mcg daily -- first dose 01/23/24 repeat TSH 6 weeks (17) Anxiety: Plan: requiring occasional ativan about every other day has what looks like panic attacks consider SSRI or similar Plan DVT proph - heparin 5000 BID Admission and Anticipated Discharge Date Admission Date: January 11, 2024 Subjective patient has multiple complaints today -- 1. continues to feel lightheaded with standing 2. continues with pain in her left foot/ankle, medial aspect today is worse than the lateral aspect - "throbbing, stabbing" in quality 3. also c/o discomfort and pain over the right side of her abdomen; present for several days; constant, sore 4. still with nausea 5. still with back pains Review of Systems Review of Systems: gen - no fevers or chills CV - no chest pain pulm - no dyspnea Physical Exam Physical Exam: gen - looks well today, but does c/o pain neck - no JVD mouth - MMM skin - generalized pallor heart - RRR, s1 s2, no murmur lungs - CTA b/l abd - mild erythema of abdominal wall on right side of abdomen; tender in this region; no abscess; no significant ascites; BS+, no HSM ext - no edema b/l; pulses feet 2+ b/l; cap refill <2 sec L foot toes at pt's request I removed her dressings from the left ankle - lateral ankle incisions clean/dry/intact; sutures intact; no drainage; no redness; medial ankle incisions clean/dry, sutures intact; no erythema psych - awake/alert/oriented Results & Data Results & Data Vital Signs (Past 12 Hours) Vital Signs Temp Pulse Resp BP Pulse Ox O2 Del Method 02/02/24 15:07 36.6 C 101 H 14 97/58 L 95 Room Air 02/02/24 11:22 98 02/02/24 11:18 36.4 C L 93 H 14 112/73 99 Room Air 02/02/24 11:01 101 H 90/55 L 98 Room Air 02/02/24 10:59 84 84/53 L 99 Room Air 02/02/24 10:56 91 H 102/65 98 Room Air 02/02/24 07:53 36.5 C 88 12 103/67 97 Room Air Laboratory Results Laboratory Results - last 24 hr 02/02/24 06:24 WBC 8.02 RBC 2.71 L Hgb 7.9 L Hct 24.0 L MCV 88.6 MCH 29.2 MCHC 32.9 RDW Std Deviation 52.6 H RDW Coeff of Liam 16.4 H Plt Count 171 MPV 10.7 PT 11.9 INR 1.1 Sodium 129 L Potassium 3.9 Chloride 97 L Carbon Dioxide 27 Anion Gap 5 BUN 27 H Creatinine 1.15 Est Cr Clr Drug Dosing 44.2 eGFR 52.21 BUN/Creatinine Ratio 23.5 H Glucose 86 Calcium 8.3 L Total Bilirubin 0.8 AST 52 H ALT 3 L Alkaline Phosphatase 107 H Total Protein 5.3 L Albumin 2.4 L Globulin 2.9 Albumin/Globulin Ratio 0.8 L PG Care Time/CCT Total # of Minutes Spent Total Time Spent with Patient: Total time spent is greater than 50% in coordination of care (as documented) at patient's floor/unit and/or counseling patient: Coding Level of Care Code 82685 SUB INP/OBS CARE 3/50MIN Diagnoses Wound of left ankle, initial encounter S91.002A Encounter type: initial encounter Abdominal wall cellulitis L03.311 Orthostasis I95.1 Hypomagnesemia E83.42 Hypokalemia E87.6 Ascites R18.8 Hepatic encephalopathy K76.82 Anemia D64.9 Thickened endometrium R93.89 Liver cirrhosis K74.60 Portal hypertension K76.6 Fall W19.XXXA Esophageal varices I85.00 Tobacco use Z72.0 Back pain M54.9 Hypothyroidism E03.9 Anxiety F41.9 (1) Wound of left ankle Encounter type: initial encounter Qualified Code(s): S91.002A - Unspecified open wound, left ankle, initial encounter
[2024-02-02] MEDS: oxyCODONE HCL IR 5 MG TAB (IMMEDIATE RELEASE) PO PRN (19:41)
[2024-02-02] MEDS: TRIAMCINOLONE ACET 0.1% CR 80 GM TUBE EXT SCH (21:40)
[2024-02-02] MEDS: GABAPENTIN 300 MG CAP PO SCH (21:41)
[2024-02-02] MEDS: DAPTOmycin 225 MG in SYRINGE 0 ML IV SCH (21:41)
[2024-02-03 07:06] LABS: BUN Creatinine Ratio 25.4 (10-20); C Reactive Protein 1.19 mg/dl (0-0.5); Calcium 8.6 mg/dl (8.6-10.3); Creatinine Clr Calc Pharmacy 44.6 ml/min; Potassium 4.5 mmol/L (3.5-5.1)
[2024-02-03 07:12] LABS: Basophils # (auto) 0.05 K/uL (0.00-0.20); Basophils % (auto) 0.5 %; Eosinophils # (auto) 0.21 K/uL (0.00-0.50); Eosinophils % (auto) 2.3 %; Hematocrit (blood only) 26.3 % (37.0-47.0); Hemoglobin 8.6 g/dl (12.0-16.0); Immature Granulocytes # (auto) 0.05 K/uL (0.01-0.20); Immature Granulocytes % (auto) 0.5 %; Lymphocytes # (auto) 1.01 K/uL (1.20-3.40); Lymphocytes % (auto) 10.8 %; Mean Corpuscular Hemoglobin 29.2 pg (25.0-34.0); Mean Corpuscular Hgb Conc 32.7 g/dL (32.0-36.0); Mean Corpuscular Volume 89.2 fL (80.0-100.0); Mean Platelet Volume 11.7 fL (9.4-12.4); Monocytes # (auto) 1.43 K/uL (0.11-0.59); Monocytes % (auto) 15.3 %; Neutrophils # (auto) 6.57 K/uL (1.40-6.50); Neutrophils % (auto) 70.6 %; Platelet Count 164 K/uL (130-400); Platelet Estimate Normal (Normal); RDW Coefficient of Variation 16.4 % (11.5-14.5); RDW Standard Deviation 53.9 fL (36.4-46.3); Red Blood Count 2.95 M/uL (4.20-5.40); White Blood Count 9.32 K/ul (4.8-10.8)
[2024-02-03] MEDS: ERGOCALCIFEROL 1250 MCG (50,000 UNITS) CAP PO ONE (10:01)
--- NOTE | 2024-02-03 12:37 | Hospitalist Progress Note ---
Date of Service February 03, 2024 Assessment & Plan (1) Orthostasis: Plan: ongoing HOLD aldactone HOLD lasix increase midodrine to 10mg TID if orthostasis continues despite the above give a small fluid bolus or consider PRBCs (2) Back pain: Plan: checked t-spine CT - NO compression fracture checked CTA chest - NO PE or pneumonia or rib fractures she continues to complain of severe low back pain she has had epidural pain shots in the past suggesting she has severe l-spine disease will obtain t-spine and l-spine MRI with contrast - r/o diskitis, other pathology cont oxycodone 5mg q6h prn pain cont gabapentin 300mg HS cont baclofen 5mg BID; consider increasing to TID dosing (3) Wound of left ankle: Plan: 01/21/24 - s/p left ankle hardware removal & obtainment of intra-op cultures removal of hardware was necessary due to chronic infection of such likely has element of osteomyelitis in the ankle due to the chronically infected wounds & hardware cultures x 2 with MSSA as well as anaerobic bacteria blood cx's negative remains on cefazolin 2g IV q8h remains on flagyl 500mg PO BID cont walking boot with ambulation suture removal 02/03? will send message to Dr Merida inquiring about this of note -- patient had suffered a L ankle Fx about 5 years ago underwent s/p ORIF for L ankle fracture at the [facility] in [place], [place] she then developed non-healing wounds from the L ankle both medially and laterally since that surgery (4) Abdominal wall cellulitis: Plan: question of right-sided abdominal wall already on ancef added daptomycin - day #2 of such doubt SBP since it is so focal but consider diagnostic paracentesis if pain in abdomen persists (5) Hypomagnesemia: Plan: replaced resolved (6) Hypokalemia: Plan: replaced resolved (7) Ascites: Plan: s/p paracentesis 01/12/24 with 4 L of fluid removed s/p paracentesis 01/26/24 with similar amount of fluid removed fluid was transudative by fluid analysis no evidence of SBP SAAG >1.2 c/w portal HTN etiology of cirrhosis?? pt denies h/o heavy alcohol abuse but I am concerned this is indeed the cause of her liver disease HepB, HepC titers negative doubt MASH/GRIFFITH but can't rule it out not a candidate for beta billie therapy due to orthostasis imaging this admission showed evidence of esophageal varices will need outpatient GI referral and surveillance EGD will be needed cont PPI HOLD lasix 40mg qam and HOLD aldactone 100mg qam due to ongoing orthostasis (8) Hepatic encephalopathy: Plan: Ammonia mildly elevated at 73.0 on arrival s/p lactulose with resolution does not tolerate lactulose - causes too much gaseous distension pt with intermittent confusion - recheck ammonia in am due to ?alcohol use in the past will give empiric thiamine 200mg BID (9) Anemia: Plan: B12/folate wnl Ferritin 57 transferrin sat 27%, however although latter is normal the ferritin is low end of normal thus, cont iron supplementation once daily s/p 1 unit PRBCs this admission with stable H/H since then repeat CBC - Hb 7.9 - consider another transfusion as this may help orthostasis repeat CBC am (10) Thickened endometrium: Plan: A/P CT on arrival revealed a thickened endometrium Nonemergent follow-up with gynecology is recommended upon discharge (11) Liver cirrhosis: Plan: see above (12) Portal hypertension: Plan: as noted on admission CT a/p see above (13) Fall: Plan: no fractures on extensive imaging obtained since admission including the L ankle (14) Esophageal varices: Plan: will need outpatient surveillance EGD ideally low-dose nadalol or inderal should be started if BPs can tolerate cont PPI once daily add back carafate 1gm QID (15) Tobacco use: Plan: Nicotine patch daily Continue to encourage cessation (16) Hypothyroidism: Plan: TSH is high FT4 borderline low in light of her host of medical issues, volume overload from cirrhosis, Na issues, etc - would benefit from replacement started 50mcg daily -- first dose 01/23/24 repeat TSH 6 weeks (17) Anxiety: Plan: consider SSRI or similar this issue has been better of late (18) Vitamin D deficiency: Plan: 25-OH vit D level = 14 ergocalciferol 50,000 units weekly x 8 weeks, first dose today 02/02 Plan DVT proph - heparin 5000 BID dispo - hopefully SNF for rehab will have to resubmit for auth Admission and Anticipated Discharge Date Admission Date: January 11, 2024 Subjective still feeling quite dizzy with standing and walking no vertigo still with low back pain she tells me she never has back pain at home, but a few minutes later states she takes motrin for her back, and has had what sounds like epidural pain injections x 2 at the [facility] for her lumbar spine (which did not help) still with mild abd pain on right, but eating doesn't cause pain had a stool earlier today still with L ankle and foot pain Review of Systems Review of Systems: gen - no fevers or chills cv - no chest pain pulm - no dyspnea GI - nausea but no emesis -- she asks for carafate reordered Physical Exam Physical Exam: gen - despite her complaints she looks well, eating a hamburger; became teary- eyed later in the visit; but NAD; poor recall neck - no JVD mouth - MMM skin - generalized pallor heart - RRR, s1 s2, no murmur lungs - CTA b/l abd - still mild warm erythema of abdominal wall on right side of abdomen; remains tender in this region; no significant ascites; BS+, no HSM ext - no edema b/l; pulses feet 2+ b/l; cap refill <2 sec L foot toes psych - awake/alert/oriented neuro - no asterixis musculo - tender to palpation over t-spine and l-spine especially paraspinal in the lumbar region Results & Data Results & Data Vital Signs (Past 12 Hours) Vital Signs Temp Pulse Resp BP Pulse Ox O2 Del Method 02/03/24 07:48 36.9 C 81 97 H 100/64 97 Room Air Laboratory Results Laboratory Results 02/03/24 06:17 WBC 9.32 RBC 2.95 L Hgb 8.6 L Hct 26.3 L MCV 89.2 MCH 29.2 MCHC 32.7 RDW Std Deviation 53.9 H RDW Coeff of Liam 16.4 H Plt Count 164 MPV 11.7 Immature Gran % (Auto) 0.5 Neut % (Auto) 70.6 Lymph % (Auto) 10.8 Pacific % (Auto) 15.3 Eos % (Auto) 2.3 Baso % (Auto) 0.5 Neut # (Auto) 6.57 H Lymph # (Auto) 1.01 L [place] # (Auto) 1.43 H Eos # (Auto) 0.21 Baso # (Auto) 0.05 Immature Gran # (Auto) 0.05 Platelet Estimate Normal Sodium 130 L Potassium 4.5 Chloride 100 Carbon Dioxide 25 Anion Gap 5 BUN 29 H Creatinine 1.14 Est Cr Clr Drug Dosing 44.6 eGFR 52.76 BUN/Creatinine Ratio 25.4 H Glucose 83 Calcium 8.6 C-Reactive Protein 1.19 H 25-OH Vitamin D Total 14.3 L PG Care Time/CCT Total # of Minutes Spent Total Time Spent with Patient: Total time spent is greater than 50% in coordination of care (as documented) at patient's floor/unit and/or counseling patient: Coding Level of Care Code 18849 SUB INP/OBS CARE 3/50MIN Diagnoses Orthostasis I95.1 Back pain M54.9 Wound of left ankle, initial encounter S91.002A Encounter type: initial encounter Abdominal wall cellulitis L03.311 Hypomagnesemia E83.42 Hypokalemia E87.6 Ascites R18.8 Hepatic encephalopathy K76.82 Anemia D64.9 Thickened endometrium R93.89 Liver cirrhosis K74.60 Portal hypertension K76.6 Fall W19.XXXA Esophageal varices I85.00 Tobacco use Z72.0 Hypothyroidism E03.9 Anxiety F41.9 Vitamin D deficiency E55.9 (3) Wound of left ankle Encounter type: initial encounter Qualified Code(s): S91.002A - Unspecified open wound, left ankle, initial encounter
[2024-02-03] MEDS: ACETAMINOPHEN 325 MG TAB PO SCH (14:02)
[2024-02-03] MEDS: SUCRALFATE 1 GM/10 ML UDC PO SCH (14:02)
[2024-02-03] MEDS: MIDODRINE HCL 10 MG TAB PO SCH (16:59)
[2024-02-03] MEDS: LORazepam 0.5 MG TAB PO STA (23:35)
[2024-02-04] MEDS: GADOBUTROL 65ML VIAL IV ONE (01:31)
--- NOTE | 2024-02-04 02:59 | Magnetic Resonance Report ---
EXAM: MR thoracic spine wo/w con CLINICAL HISTORY: history of chronic left ankle staph infection. horrible back pain off and on for 2 weeks. no known back injury. no complaints of radicular pain. injected 5.5cc gadavist through existing iv left arm uneventful at 0115 CT thoracic spine 01/20/24. No previous MRI of spine done here. images 239 INPATIENT TECHNIQUE: Multisequential and multiplanar images of the thoracic spine were submitted for review with intravenous contrast. COMPARISON: None. FINDINGS: The cord is normal in caliber and signal. No abnormal bone marrow signal demonstrated throughout the thoracic spine to suggest a fracture. C7-T1: No disc bulge. No canal stenosis. No neuroforaminal narrowing. T1-T2: No disc bulge. No canal stenosis. No neuroforaminal narrowing. T2-T3: No disc bulge. No canal stenosis. No neuroforaminal narrowing. T3-T4: No disc bulge. No canal stenosis. No neuroforaminal narrowing. T4-T5: No disc bulge. No canal stenosis. No neuroforaminal narrowing. T5-T6: No disc bulge. No canal stenosis. No neuroforaminal narrowing. T6-T7: No disc bulge. No canal stenosis. No neuroforaminal narrowing. T7-T8: No disc bulge. No canal stenosis. No neuroforaminal narrowing. T8-T9: No disc bulge. No canal stenosis. No neuroforaminal narrowing. T9-T10: No disc bulge. No canal stenosis. No neuroforaminal narrowing. T10-T11: No disc bulge. No canal stenosis. No neuroforaminal narrowing. T11-T12: No disc bulge. No canal stenosis. No neuroforaminal narrowing. The paravertebral soft tissues are unremarkable. IMPRESSION: 1. No significant abnormality. Electronically signed by Ky Bravo 02-04-2024 02:59 AM
--- NOTE | 2024-02-04 03:20 | Magnetic Resonance Report ---
EXAM: MR lumbar spine wo/w con CLINICAL HISTORY: history of chronic left ankle staph infection. horrible back pain off and on for 2 weeks. no known back injury. no complaints of radicular pain. injected 5.5cc gadavist through existing iv left arm uneventful at 0115 CT thoracic spine 01/20/24. No previous MRI of spine done here. images 152. INPATIENT TECHNIQUE: Multisequential and multiplanar images of the lumbar spine were submitted for review with and without contrast. COMPARISON: No comparison study. FINDINGS: The conus terminates at approximately L1. Severe degenerative lumbar spondylosis with anterior osteophytes and modic type I and II endplate degenerative changes. Mild degenerative L1 over L2 and L2 over L3 retrolisthesis. Disc desiccation is noted at all the levels with disc oedema at L1-L2 and L2-L3 levels. No evidence of abnormal spinal or paraspinal enhancement in the present study. Heterogeneous signal intensity is noted in the vertebrae with no obvious lesion, likely secondary to osteoporosis or metabolic bone disease. No evidence of compression fracture. SI joints are within normal limits. Limited evaluation of the sacrum is normal. The visualized paravertebral soft tissues are unremarkable. T12-L1: Evaluated on sagittal images only. No disc bulge, canal stenosis or neuroforaminal narrowing. Subarticular recesses are patent. L1-L2: Diffuse disc bulge of 4 mm with mild bilateral ligamentum flavum hypertrophy and bilateral facetal arthropathy, resulting in mild canal stenosis and modertae bilateral neuroforaminal narrowing. Subarticular recesses are patent. L2-L3: Diffuse disc bulge of 3 mm with mild bilateral ligamentum flavum hypertrophy and bilateral facetal arthropathy, resulting in mild canal stenosis and modertae bilateral neuroforaminal narrowing. Subarticular recesses are patent. L3-L4: Diffuse disc bulge of 2 mm with mild bilateral ligamentum flavum hypertrophy and bilateral facetal arthropathy, resulting in no significant canal stenosis and mild to modertae bilateral neuroforaminal narrowing. Subarticular recesses are patent. L4-L5: Diffuse disc bulge of 3 mm with bilateral ligamentum flavum hypertrophy and bilateral facetal arthropathy, resulting in no significant canal stenosis and mild to modertae bilateral neuroforaminal narrowing. Subarticular recesses are patent. L5-S1:Diffuse disc bulge of 3 mm with bilateral ligamentum flavum hypertrophy and bilateral facetal arthropathy, resulting in no significant canal stenosis and mild to modertae bilateral neuroforaminal narrowing. Subarticular recesses are patent. IMPRESSION: 1. Severe degenerative lumbar spondylosis with anterior osteophytes and modic type I and II endplate degenerative changes. 2.Mild degenerative L1 over L2 and L2 over L3 retrolisthesis. 3.Disc desiccation at all the levels with disc oedema at L1-L2 and L2-L3 levels. 4.Heterogeneous signal intensity is noted in the vertebrae with no obvious lesion, likely secondary to osteoporosis or metabolic bone disease. 5.Multiple level diffuse disc bulges with bilateral ligamentum flavum hypertrophy and bilateral facetal arthropathy as detailed above. Correlate clinically. Electronically signed by Ky Bravo 02-04-2024 03:19 AM
[2024-02-04 07:57] LABS: BUN Creatinine Ratio 27.5 (10-20); Calcium 8.7 mg/dl (8.6-10.3); Creatinine Clr Calc Pharmacy 42.4 ml/min; Potassium 4.3 mmol/L (3.5-5.1)
[2024-02-04] MEDS: SENNA 8.6 MG TAB PO SCH (08:54)
[2024-02-04] MEDS: POLYETHYLENE (MIRALAX) 17 GM PACK PO SCH (08:54)
[2024-02-04] MEDS: THIAMINE HCL 100 MG TAB PO SCH (09:11)
--- NOTE | 2024-02-04 15:57 | Podiatry Progress Note ---
Date of Service February 04, 2024 Assessment & Plan (1) Infected hardware in left lower extremity: (2) History of fracture of left ankle: (3) Wound of left ankle: Plan - Patient examined and evaluated. - Sutures were removed uneventfully from the lateral incision - 2 sutures were left intact and the medial incision because of pain. - We will remove the sutures tomorrow with my suture removal kit from the office for decreased pain. - She can begin weightbearing more often, including out of the boot as she feels comfortable. Can plan on working with physical therapy for this as well. - Will follow. Admission and Anticipated Discharge Date Admission Date: January 11, 2024 Subjective patient seen at bedside. States she has no new concerns and is waiting for discharge to inpatient rehab somewhere. She states she is ready to go home and is tired of being in the hospital. Review of Systems Constitutional: + weight loss; no fever, no chills and n o fatigue Eyes: no problem reported Ear, Nose, Mouth, Throat: no problem reported Respiratory: no problem reported Cardiovascular: + edema; no problem reported Gastrointestinal: no nausea, no vomiting and no problem reported Genitourinary: no problem reported Musculoskeletal: + swelling and + limited range of motion ; no problem reported Integumentary: + non-healing lesions, + skin ulcer, + w ounds and + erythema Neurologic: + generalized weakness, + loss of sensat ion, + numbness and + paresthesia Psychiatric: no problem reported Physical Exam Physical Exam: Lower extremity exam: Dressing removed, sutures/surgical sites intact. No early dehiscence. Local erythema appreciated to surgical site. Minimal pain on palpat ion of surgical site, consistent with level of surgical intervention. Constitutional: WD/WN, vitals as above + ill appearing and + obese Eyes: PERRL, conjunctivae normal, anicteric sclerae ENMT: external ear and nose normal, oropharynx normal Neck: trachea midline, no thyromegaly normal visual inspection Respiratory: normal respiratory effort; no respiratory distress Cardiovascular: Rate/Rhythm: regular rate and regular rhythm Chest (Breasts): Chest: normal inspection of chest Gastrointestinal (Abdomen): Inspection/Auscultation: abdomen normal to inspection Percussion/Palpation: + abdomen tender and abdomen soft Musculoskeletal: no cyanosis or clubbing, extremities motor strength 5/5 Head/Neck/Chest: normocephalic and head atraumatic Extremities: extremities normal to inspection, + abnormal strength, + muscle atrophy and + limited ROM of lower extremity Ankle: + ankle abnormal to inspection and + limited ROM of ankle Skin: no rashes, warm and dry + fistulous tract Neurologic: awake; no focal motor deficits Psychiatric: A+Ox3, euthymic affect Results & Data Results & Data Vital Signs (Past 12 Hours) Vital Signs Temp Pulse Resp BP Pulse Ox O2 Del Method 02/04/24 14:26 36.2 C L 92 H 18 101/66 96 Room Air 02/04/24 08:07 37.0 C 52 L 18 91/58 L 93 Room Air (1) Infected hardware in left lower extremity Encounter type: initial encounter Qualified Code(s): T84.7XXA - Infection and inflammatory reaction due to other internal orthopedic prosthetic devices, implants and grafts, initial encounter (3) Wound of left ankle Encounter type: initial encounter Qualified Code(s): S91.002A - Unspecified open wound, left ankle, initial encounter
[2024-02-04] MEDS: bisacodyL 5 MG TABEC PO ONE (17:25)
--- NOTE | 2024-02-04 18:41 | Hospitalist Progress Note ---
Date of Service February 04, 2024 Assessment & Plan (1) Orthostasis: Plan: IMPROVED with holding aldactone/lasix today and with increase in midodrine to 10mg TID on 02/03/24 although there was a drop in her sitting to standing BPs, her systolics were much better overall during orthostatic checks today (2) Degenerative joint disease (DJD) of lumbar spine: Plan: checked t-spine CT - NO compression fracture checked CTA chest - NO PE or pneumonia or rib fractures she has had mod-severe low back pain off/on throughout this stay she mentioned she has had epidural pain shots in the past ([facility]) t-spine MRI wnl l-spine MRI with severe DJD at multiple levels fortunately no diskitis, abscess, tumor or fracture discussed results with patient in detail today cont oxycodone 5mg q6h prn pain cont gabapentin 300mg HS cont baclofen 5mg BID; consider increasing to TID dosing if necessary unfortunately she is poor candidate for NSAIDs due to cirrhosis (3) Wound of left ankle: Plan: 01/21/24 - s/p left ankle hardware removal & obtainment of intra-op cultures removal of hardware was necessary due to chronic infection of such likely has element of osteomyelitis in the ankle due to the chronically infected wounds & hardware cultures x 2 with MSSA as well as anaerobic bacteria blood cx's negative remains on cefazolin 2g IV q8h remains on flagyl 500mg PO BID cont walking boot with ambulation Dr Merida saw patient today - lateral ankle sutures removed; a few medial sutures remain; he will take the rest out tomorrow of note -- patient had suffered a L ankle Fx about 5 years ago underwent s/p ORIF for L ankle fracture at the [facility] in [place], [place] she then developed non-healing wounds from the L ankle both medially and laterally since that surgery (4) Abdominal wall cellulitis: Plan: question of right-sided abdominal wall seems better today already on ancef added daptomycin - day #3 of such doubt SBP since it is so focal but consider diagnostic paracentesis if pain in abdomen persists (5) Hypomagnesemia: Plan: replaced resolved (6) Hypokalemia: Plan: replaced resolved (7) Ascites: Plan: s/p paracentesis 01/12/24 with 4 L of fluid removed s/p paracentesis 01/26/24 with similar amount of fluid removed fluid was transudative by fluid analysis no evidence of SBP SAAG >1.2 c/w portal HTN etiology of cirrhosis?? pt denies h/o heavy alcohol abuse but I am concerned this is indeed the cause of her liver disease HepB, HepC titers negative doubt MASH/GRIFFITH but can't rule it out not a candidate for beta billie therapy due to orthostasis imaging this admission showed evidence of esophageal varices will need outpatient GI referral and surveillance EGD will be needed cont PPI HOLD lasix 40mg qam and HOLD aldactone 100mg qam due to ongoing orthostasis consider resuming tomorrow albeit at lower doses (8) Hepatic encephalopathy: Plan: Ammonia mildly elevated at 73.0 on arrival s/p lactulose with resolution does not tolerate lactulose - causes too much gaseous distension pt with intermittent confusion - rechecked ammonia today - wnl due to ?alcohol use in the past will give empiric thiamine 200mg BID (9) Anemia: Plan: B12/folate wnl Ferritin 57 transferrin sat 27%, however although latter is normal the ferritin is low end of normal thus, cont iron supplementation once daily s/p 1 unit PRBCs this admission with stable H/H since then repeat CBC today stable (Hb 8.6 yesterday) (10) Thickened endometrium: Plan: A/P CT on arrival revealed a thickened endometrium Nonemergent follow-up with gynecology is recommended upon discharge (11) Liver cirrhosis: Plan: see above (12) Portal hypertension: Plan: as noted on admission CT a/p see above (13) Fall: Plan: no fractures on extensive imaging obtained since admission including the L ankle (14) Esophageal varices: Plan: will need outpatient surveillance EGD ideally low-dose nadalol or inderal should be started if BPs can tolerate but doubtful given her orthostasis cont PPI once daily cont carafate 1gm QID (15) Tobacco use: Plan: Nicotine patch daily Continue to encourage cessation (16) Hypothyroidism: Plan: TSH is high FT4 borderline low in light of her host of medical issues, volume overload from cirrhosis, Na issues, etc - would benefit from replacement started 50mcg daily -- first dose 01/23/24 repeat TSH 6 weeks (17) Anxiety: Plan: consider SSRI or similar this issue has been better of late (18) Vitamin D deficiency: Plan: 25-OH vit D level = 14 ergocalciferol 50,000 units weekly x 8 weeks, first dose 02/03/24 Plan DVT proph - heparin 5000 BID dispo - hopefully SNF for rehab will have to resubmit for auth - social work to do such today Admission and Anticipated Discharge Date Admission Date: January 11, 2024 Subjective patient with NO dizziness today when orthostatic BPs were checked back pain - no change still with mild right-sided abd pain - no change pain will often worsen after eating no BM in a few days no vomiting left foot pain stable sutures removed from L ankle except for a few sutures medially appetite is good we discussed the results of her t-spine & l-spine MRIs Review of Systems Review of Systems: CV - no cp, no edema, no orthopnea pulm - no dyspnea or [facility] - see HPI - no LUTS gen - eating well, tired Physical Exam Physical Exam: gen - laying in bed, NAD, looks ok today neck - no JVD mouth - MMM skin - generalized pallor heart - RRR, s1 s2, no murmur lungs - CTA b/l abd - resolving erythema of abdominal wall on right side of abdomen; remains mildly tender in this region to palpation; no significant ascites; BS+, no HSM; dry, flaky scaly skin on abd wall improved ext - no edema b/l; pulses feet 2+ b/l; cap refill <2 sec L foot toes (left foot /ankle in walking boot) psych - awake/alert/oriented Results & Data Results & Data Vital Signs (Past 12 Hours) Vital Signs Temp Pulse Resp BP Pulse Ox O2 Del Method 02/04/24 14:26 36.2 C L 92 H 18 101/66 96 Room Air 02/04/24 08:07 37.0 C 52 L 18 91/58 L 93 Room Air Laboratory Results Laboratory Results - last 24 hr 02/04/24 06:34 Sodium 131 L Potassium 4.3 Chloride 98 Carbon Dioxide 26 Anion Gap 7 BUN 33 H Creatinine 1.20 Est Cr Clr Drug Dosing 42.4 eGFR 49.61 BUN/Creatinine Ratio 27.5 H Glucose 80 Calcium 8.7 Ammonia 46.0 Diagnostic Findings Lumbar Spine MRI 02/04/24 00:30 EXAM: MR lumbar spine wo/w con CLINICAL HISTORY: history of chronic left ankle staph infection. horrible back pain off and on for 2 weeks. no known back injury. no complaints of radicular pain. injected 5.5cc gadavist through existing iv left arm uneventful at 0115 CT thoracic spine 01/20/24. No previous MRI of spine done here. images 152. INPATIENT TECHNIQUE: Multisequential and multiplanar images of the lumbar spine were submitted for review with and without contrast. COMPARISON: No comparison study. FINDINGS: The conus terminates at approximately L1. Severe degenerative lumbar spondylosis with anterior osteophytes and modic type I and II endplate degenerative changes. Mild degenerative L1 over L2 and L2 over L3 retrolisthesis. Disc desiccation is noted at all the levels with disc oedema at L1-L2 and L2-L3 levels. No evidence of abnormal spinal or paraspinal enhancement in the present study. Heterogeneous signal intensity is noted in the vertebrae with no obvious lesion, likely secondary to osteoporosis or metabolic bone disease. No evidence of compression fracture. SI joints are within normal limits. Limited evaluation of the sacrum is normal. The visualized paravertebral soft tissues are unremarkable. T12-L1: Evaluated on sagittal images only. No disc bulge, canal stenosis or neuroforaminal narrowing. Subarticular recesses are patent. L1-L2: Diffuse disc bulge of 4 mm with mild bilateral ligamentum flavum hypertrophy and bilateral facetal arthropathy, resulting in mild canal stenosis and modertae bilateral neuroforaminal narrowing. Subarticular recesses are patent. L2-L3: Diffuse disc bulge of 3 mm with mild bilateral ligamentum flavum hypertrophy and bilateral facetal arthropathy, resulting in mild canal stenosis and modertae bilateral neuroforaminal narrowing. Subarticular recesses are patent. L3-L4: Diffuse disc bulge of 2 mm with mild bilateral ligamentum flavum hypertrophy and bilateral facetal arthropathy, resulting in no significant canal stenosis and mild to modertae bilateral neuroforaminal narrowing. Subarticular recesses are patent. L4-L5: Diffuse disc bulge of 3 mm with bilateral ligamentum flavum hypertrophy and bilateral facetal arthropathy, resulting in no significant canal stenosis and mild to modertae bilateral neuroforaminal narrowing. Subarticular recesses are patent. L5-S1:Diffuse disc bulge of 3 mm with bilateral ligamentum flavum hypertrophy and bilateral facetal arthropathy, resulting in no significant canal stenosis and mild to modertae bilateral neuroforaminal narrowing. Subarticular recesses are patent. IMPRESSION: 1. Severe degenerative lumbar spondylosis with anterior osteophytes and modic type I and II endplate degenerative changes. 2.Mild degenerative L1 over L2 and L2 over L3 retrolisthesis. 3.Disc desiccation at all the levels with disc oedema at L1-L2 and L2-L3 levels. 4.Heterogeneous signal intensity is noted in the vertebrae with no obvious lesion, likely secondary to osteoporosis or metabolic bone disease. 5.Multiple level diffuse disc bulges with bilateral ligamentum flavum hypertrophy and bilateral facetal arthropathy as detailed above. Correlate clinically. Electronically signed by Ky Bravo 02-04-2024 03:19 AM Thoracic Spine MRI 02/04/24 00:30 EXAM: MR thoracic spine wo/w con CLINICAL HISTORY: history of chronic left ankle staph infection. horrible back pain off and on for 2 weeks. no known back injury. no complaints of radicular pain. injected 5.5cc gadavist through existing iv left arm uneventful at 0115 CT thoracic spine 01/20/24. No previous MRI of spine done here. images 239 INPATIENT TECHNIQUE: Multisequential and multiplanar images of the thoracic spine were submitted for review with intravenous contrast. COMPARISON: None. FINDINGS: The cord is normal in caliber and signal. No abnormal bone marrow signal demonstrated throughout the thoracic spine to suggest a fracture. C7-T1: No disc bulge. No canal stenosis. No neuroforaminal narrowing. T1-T2: No disc bulge. No canal stenosis. No neuroforaminal narrowing. T2-T3: No disc bulge. No canal stenosis. No neuroforaminal narrowing. T3-T4: No disc bulge. No canal stenosis. No neuroforaminal narrowing. T4-T5: No disc bulge. No canal stenosis. No neuroforaminal narrowing. T5-T6: No disc bulge. No canal stenosis. No neuroforaminal narrowing. T6-T7: No disc bulge. No canal stenosis. No neuroforaminal narrowing. T7-T8: No disc bulge. No canal stenosis. No neuroforaminal narrowing. T8-T9: No disc bulge. No canal stenosis. No neuroforaminal narrowing. T9-T10: No disc bulge. No canal stenosis. No neuroforaminal narrowing. T10-T11: No disc bulge. No canal stenosis. No neuroforaminal narrowing. T11-T12: No disc bulge. No canal stenosis. No neuroforaminal narrowing. The paravertebral soft tissues are unremarkable. IMPRESSION: 1. No significant abnormality. Electronically signed by Ky Bravo 02-04-2024 02:59 AM PG Care Time/CCT Total # of Minutes Spent Total Time Spent with Patient: Total time spent is greater than 50% in coordination of care (as documented) at patient's floor/unit and/or counseling patient: Coding Level of Care Code 55701 SUB INP/OBS CARE 3/50MIN Diagnoses Orthostasis I95.1 Degenerative joint disease (DJD) of lumbar spine M47.816 Wound of left ankle, initial encounter S91.002A Encounter type: initial encounter Abdominal wall cellulitis L03.311 Hypomagnesemia E83.42 Hypokalemia E87.6 Ascites R18.8 Hepatic encephalopathy K76.82 Anemia D64.9 Thickened endometrium R93.89 Liver cirrhosis K74.60 Portal hypertension K76.6 Fall W19.XXXA Esophageal varices I85.00 Tobacco use Z72.0 Hypothyroidism E03.9 Anxiety F41.9 Vitamin D deficiency E55.9 (3) Wound of left ankle Encounter type: initial encounter Qualified Code(s): S91.002A - Unspecified open wound, left ankle, initial encounter
[2024-02-05] MEDS: FUROSEMIDE 20 MG TAB PO SCH (09:56)
[2024-02-05] MEDS: SPIRONOLACTONE 25 MG TAB PO SCH (09:57)
--- NOTE | 2024-02-05 16:00 | Podiatry Progress Note ---
Date of Service February 05, 2024 Assessment & Plan (1) Infected hardware in left lower extremity: (2) History of fracture of left ankle: (3) Wound of left ankle: Plan - Patient examined and evaluated. - Sutures were removed uneventfully from the medial incision. - She was placed back into a Monster wrap and her boot. - She can continue to ambulate in the boot but can also transition to weightbearing as tolerated without it as she feels more comfortable. - Should continue IV antibiotics for suspected underlying osteomyelitis even after the retained hardware was removed. - Can benefit from wound care by nursing to evaluate any potential dehiscence. - We will continue to follow while she remains inpatient, though on a less routine basis. Admission and Anticipated Discharge Date Admission Date: January 11, 2024 Subjective patient seen at bedside. States she has no new concerns and is waiting for discharge to inpatient rehab somewhere. had pain with removal of sutures yesterday but has no continued pain or increasing pain since the removal. Review of Systems Constitutional: + weight loss; no fever, no chills and n o fatigue Eyes: no problem reported Ear, Nose, Mouth, Throat: no problem reported Respiratory: no problem reported Cardiovascular: + edema; no problem reported Gastrointestinal: no nausea, no vomiting and no problem reported Genitourinary: no problem reported Musculoskeletal: + swelling and + limited range of motion ; no problem reported Integumentary: + non-healing lesions, + skin ulcer, + w ounds and + erythema Neurologic: + generalized weakness, + loss of sensat ion, + numbness and + paresthesia Psychiatric: no problem reported Physical Exam Physical Exam: Lower extremity exam: Dressing removed, sutures/surgical sites intact. No early dehiscence. Local erythema appreciated to surgical site. Minimal pain on palpation of surgical site, consistent with level of surgical intervention. Constitutional: WD/WN, vitals as above + ill appearing and + obese Eyes: PERRL, conjunctivae normal, anicteric sclerae ENMT: external ear and nose normal, oropharynx normal Neck: trachea midline, no thyromegaly normal visual inspection Respiratory: normal respiratory effort; no respiratory distress Cardiovascular: Rate/Rhythm: regular rate and regular rhythm Chest (Breasts): Chest: normal inspection of chest Gastrointestinal (Abdomen): Inspection/Auscultation: abdomen normal to inspection Percussion/Palpation: + abdomen tender and abdomen soft Musculoskeletal: no cyanosis or clubbing, extremities motor strength 5/5 Head/Neck/Chest: normocephalic and head atraumatic Extremities: extremities normal to inspection, + abnormal strength, + muscle atrophy and + limited ROM of lower extremity Ankle: + ankle abnormal to inspection and + limited ROM of ankle Skin: no rashes, warm and dry + fistulous tract Neurologic: awake; no focal motor deficits Psychiatric: A+Ox3, euthymic affect Results & Data Results & Data Vital Signs (Past 12 Hours) Vital Signs Temp Pulse Resp BP Pulse Ox O2 Del Method 02/05/24 07:53 36.9 C 84 18 98/61 L 94 Room Air (1) Infected hardware in left lower extremity Encounter type: initial encounter Qualified Code(s): T84.7XXA - Infection and inflammatory reaction due to other internal orthopedic prosthetic devices, impl ants and grafts, initial encounter (3) Wound of left ankle Encounter type: initial encounter Qualified Code(s): S91.002A - Unspecified open wound, left ankle, initial encounter
--- NOTE | 2024-02-05 20:33 | Hospitalist Progress Note ---
Date of Service February 05, 2024 Assessment & Plan (1) Orthostasis: Plan: MUCH IMPROVED with increase in midodrine to 10mg TID on 02/03/24 No further dizziness Resume diuretics today for her cirrhosis -- lasix 20mg daily, aldactone 50mg daily (2) Degenerative joint disease (DJD) of lumbar spine: Plan: checked t-spine CT - NO compression fracture checked CTA chest - NO PE or pneumonia or rib fractures she has had mod-severe low back pain off/on throughout this stay she mentioned she has had epidural pain shots in the past ([facility]) t-spine MRI wnl l-spine MRI with severe DJD at multiple levels fortunately no diskitis, abscess, tumor or fracture cont oxycodone 5mg q6h prn pain cont gabapentin 300mg HS cont baclofen 5mg BID; unfortunately she is poor candidate for NSAIDs due to cirrhosis (3) Wound of left ankle: Plan: 01/21/24 - s/p left ankle hardware removal & obtainment of intra-op cultures removal of hardware was necessary due to chronic infection of such likely has element of osteomyelitis in the ankle due to the chronically infected wounds & hardware cultures x 2 with MSSA as well as anaerobic bacteria blood cx's negative cont cefazolin 2g IV q8h cont flagyl 500mg PO BID for anaerobic coverage cont walking boot with ambulation Dr Merida's assistance appreciated; all sutures now removed from the ankle there is a small amount of dehiscence on the lateral aspect; Dr Merida placed steri strips placed wound care consult for recs re: the dehidscence at time of discharge STOP the cefazolin and change to -- cefadroxil 1g PO bid to complete 6 weeks of abx starting from day of surgery (01/20, end through 03/02) of note -- patient had suffered a L ankle Fx about 5 years ago underwent s/p ORIF for L ankle fracture at the [facility] in [place], [place] she then developed non-healing wounds from the L ankle both medially and laterally since that surgery (4) Abdominal wall cellulitis: Plan: suspected, --> improved right-sided abdominal wall cont ancef cont daptomycin - day #4 of such (5) Hypomagnesemia: Plan: replaced resolved (6) Hypokalemia: Plan: replaced resolved (7) Ascites: Plan: s/p paracentesis 01/12/24 with 4 L of fluid removed s/p paracentesis 01/26/24 with similar amount of fluid removed fluid was transudative by fluid analysis no evidence of SBP SAAG >1.2 c/w portal HTN etiology of cirrhosis?? pt denies h/o heavy alcohol abuse but I am concerned this is indeed the cause of her liver disease HepB, HepC titers negative doubt MASH/GRIFFITH but can't rule it out not a candidate for beta billie therapy due to orthostasis imaging this admission showed evidence of esophageal varices will need outpatient GI referral and surveillance EGD will be needed cont PPI RESUME diuretics today albeit at lower doses due to severe orthostasis; resume lasix 20mg qam and aldactone 50mg qam (8) Hepatic encephalopathy: Plan: Ammonia mildly elevated at 73.0 on arrival s/p lactulose with resolution does not tolerate lactulose - causes too much gaseous distension pt with intermittent confusion - rechecked ammonia today - wnl due to ?alcohol use in the past will give empiric thiamine 200mg BID (9) Anemia: Plan: B12/folate wnl Ferritin 57 transferrin sat 27%, however although latter is normal the ferritin is low end of normal thus, cont iron supplementation once daily s/p 1 unit PRBCs this admission with stable H/H since then most recent CBCs have been stable (10) Thickened endometrium: Plan: A/P CT on arrival revealed a thickened endometrium Nonemergent follow-up with gynecology is recommended upon discharge (11) Liver cirrhosis: Plan: see above (12) Portal hypertension: Plan: as noted on admission CT a/p see above (13) Fall: Plan: no fractures on extensive imaging obtained since admission including the L ankle (14) Esophageal varices: Plan: will need outpatient surveillance EGD ideally low-dose nadalol or inderal should be started if BPs can tolerate but doubtful given her orthostasis cont PPI once daily cont carafate 1gm QID (15) Tobacco use: Plan: Nicotine patch daily Continue to encourage cessation (16) Hypothyroidism: Plan: TSH is high FT4 borderline low in light of her host of medical issues, volume overload from cirrhosis, Na issues, etc - would benefit from replacement started 50mcg daily -- first dose 01/23/24 repeat TSH 6 weeks (17) Anxiety: Plan: consider SSRI or similar this issue has been better of late (18) Vitamin D deficiency: Plan: 25-OH vit D level = 14 ergocalciferol 50,000 units weekly x 8 weeks, first dose 02/03/24 Plan DVT proph - heparin 5000 BID Approval for SNF placement obtained today after I spent ~20 min on the phone doing peer to peer likely d/c to SNF ([facility]) this weekend Admission and Anticipated Discharge Date Admission Date: January 11, 2024 Subjective patient w/o any new complaints I informed her that the insurance co during a "peer to peer" phone call APPROVED SNF placement she was pleased to hear this low back pain & L ankle pain is unchanged remaining sutures were removed from the L ankle today she denies any dizziness today abd pain - none today no nausea or emesis Review of Systems Review of Systems: gen - no fevers or chills cv - no chest pain pulm - no dyspnea or [facility] - moving her bowels Physical Exam Physical Exam: gen - laying in bed, NAD, looks well today; in good spirits neck - no JVD mouth - MMM heart - RRR, s1 s2, no murmur lungs - CTA b/l abd - nearly resolved erythema of abdominal wall on right side of abdomen; no tenderness today any portion of her abdomen; no significant ascites; BS+, no HSM; dry, flaky scaly skin on abd wall nearly resolved ext - no edema b/l; pulses feet 2+ b/l psych - awake/alert/oriented; no confusion Results & Data Results & Data Vital Signs (Past 12 Hours) Vital Signs Temp Pulse Resp BP Pulse Ox O2 Del Method 02/05/24 19:59 37.2 C 88 16 92/53 L 96 Room Air PG Care Time/CCT Total # of Minutes Spent Total Time Spent with Patient: Total time spent is greater than 50% in coordination of care (as documented) at patient's floor/unit and/or counseling patient: Coding Level of Care Code 49574 SUB INP/OBS CARE 2/35MIN Diagnoses Orthostasis I95.1 Degenerative joint disease (DJD) of lumbar spine M47.816 Wound of left ankle, initial encounter S91.002A Encounter type: initial encounter Abdominal wall cellulitis L03.311 Hypomagnesemia E83.42 Hypokalemia E87.6 Ascites R18.8 Hepatic encephalopathy K76.82 Anemia D64.9 Thickened endometrium R93.89 Liver cirrhosis K74.60 Portal hypertension K76.6 Fall W19.XXXA Esophageal varices I85.00 Tobacco use Z72.0 Hypothyroidism E03.9 Anxiety F41.9 Vitamin D deficiency E55.9 (3) Wound of left ankle Encounter type: initial encounter Qualified Code(s): S91.002A - Unspecified open wound, left ankle, initial encounter
[2024-02-06] MEDS: HYDROmorphone INJ 0.5 MG/0.5 ML SYR IV STA (00:27)
--- NOTE | 2024-02-06 20:47 | Hospitalist Progress Note ---
Date of Service February 06, 2024 Assessment & Plan (1) Orthostasis: Plan: MUCH IMPROVED with increase in midodrine to 10mg TID on 02/03/24 No further dizziness Does have typically about a 15 point drop but fortunately no symptoms from that amount of drop Needs diuretics for her advanced cirrhosis -- continue lasix 20mg daily + aldactone 50mg daily (2) Degenerative joint disease (DJD) of lumbar spine: Plan: checked t-spine CT - NO compression fracture checked CTA chest - NO PE or pneumonia or rib fractures she has had mod-severe low back pain off/on throughout this stay she mentioned she has had epidural pain shots in the past ([facility]) t-spine MRI wnl l-spine MRI with severe DJD at multiple levels fortunately no diskitis, abscess, tumor or fracture cont oxycodone 5mg q6h prn pain cont gabapentin 300mg HS cont baclofen 5mg BID unfortunately she is poor candidate for NSAIDs due to cirrhosis (3) Wound of left ankle: Plan: 01/21/24 - s/p left ankle hardware removal & obtainment of intra-op cultures removal of hardware was necessary due to chronic infection of such likely has element of osteomyelitis in the ankle due to the chronically infected wounds & hardware cultures x 2 with MSSA as well as anaerobic bacteria blood cx's negative cont cefazolin 2g IV q8h cont flagyl 500mg PO BID for anaerobic coverage cont walking boot with ambulation Dr Merida's assistance appreciated; all sutures now removed from the ankle there is a small amount of dehiscence on the lateral aspect; Dr Merida placed steri strips placed wound care consult for recs re: the dehidscence at time of discharge STOP the cefazolin and change to -- cefadroxil 1g PO bid to complete 6 weeks of abx starting from day of surgery (01/20, end through 03/02) of note -- patient had suffered a L ankle Fx about 5 years ago underwent s/p ORIF for L ankle fracture at the [facility] in [place] she then developed non-healing wounds from the L ankle both medially and lat erally since that surgery (4) Abdominal wall cellulitis: Plan: suspected, --> improved / nearly resolved right-sided abdominal wall cont ancef cont daptomycin - day #5 of such can likely do 2 more days of PO doxy starting tomorrow then d/c (5) Hypomagnesemia: Plan: replaced resolved repeat level in am for stability (6) Hypokalemia: Plan: replaced resolved repeat BMP am (7) Ascites: Plan: s/p paracentesis 01/12/24 with 4 L of fluid removed s/p paracentesis 01/26/24 with similar amount of fluid removed fluid was transudative by fluid analysis no evidence of SBP SAAG >1.2 c/w portal HTN etiology of cirrhosis?? pt denies h/o heavy alcohol abuse but I am concerned this is indeed the cause of her liver disease HepB, HepC titers negative doubt MASH/GRIFFITH but can't rule it out not a candidate for beta billie therapy due to orthostasis imaging this admission showed evidence of esophageal varices will need outpatient GI referral and surveillance EGD will be needed cont PPI cont lasix 20mg qam and aldactone 50mg qam (8) Hepatic encephalopathy: Plan: Ammonia mildly elevated at 73.0 on arrival s/p lactulose with resolution does not tolerate lactulose - causes too much gaseous distension pt with intermittent confusion - rechecked ammonia today - wnl due to ?alcohol use in the past will give empiric thiamine 200mg BID (9) Anemia: Plan: B12/folate wnl Ferritin 57 transferrin sat 27%, however although latter is normal the ferritin is low end of normal thus, cont iron supplementation once daily s/p 1 unit PRBCs this admission with stable H/H since then most recent CBCs have been stable (10) Thickened endometrium: Plan: A/P CT on arrival revealed a thickened endometrium Nonemergent follow-up with gynecology is recommended upon discharge (11) Liver cirrhosis: Plan: see above (12) Portal hypertension: Plan: as noted on admission CT a/p see above (13) Fall: Plan: no fractures on extensive imaging obtained since admission including the L ankle (14) Esophageal varices: Plan: will need outpatient surveillance EGD ideally low-dose nadalol or inderal should be started if BPs can tolerate but doubtful given her orthostasis cont PPI once daily cont carafate 1gm QID (15) Tobacco use: Plan: Nicotine patch daily Continue to encourage cessation (16) Hypothyroidism: Plan: TSH is high FT4 borderline low in light of her host of medical issues, volume overload from cirrhosis, Na issues, etc - would benefit from replacement started 50mcg daily -- first dose 01/23/24 repeat TSH 6 weeks (17) Anxiety: Plan: consider SSRI or similar this issue has been better of late (18) Vitamin D deficiency: Plan: 25-OH vit D level = 14 ergocalciferol 50,000 units weekly x 8 weeks, first dose 02/03/24 Plan DVT proph - heparin 5000 BID can d/c to [facility] tomorrow Admission and Anticipated Discharge Date Admission Date: January 11, 2024 Subjective patient feeling well today back pain/L ankle pain at baseline mild abd discomfort but not preventing her from eating -- eating 100% of meals no n/v today no chest pain no dyspnea denies any dizziness today Review of Systems Review of Systems: gen - no fevers cv - no orthopnea, no edema pulm - no cough Physical Exam Physical Exam: gen - laying in bed, NAD, looks good neck - no JVD mouth - MMM heart - RRR, s1 s2, no murmur lungs - CTA b/l abd - resolved erythema of abdominal wall on right side of abdomen; nontender; no significant ascites; BS+, no HSM; dry, flaky scaly skin on abd wall resolved ext - no edema b/l; pulses feet 2+ b/l psych - awake/alert/oriented; no confusion skin - dressings intact L ankle/foot Results & Data Results & Data Vital Signs (Past 12 Hours) Vital Signs Temp Pulse Resp BP Pulse Ox O2 Del Method 02/06/24 19:34 36.7 C 88 18 98/61 L 95 Room Air 02/06/24 15:35 36.7 C 87 18 105/68 96 Room Air 02/06/24 11:06 Room Air PG Care Time/CCT Total # of Minutes Spent Total Time Spent with Patient: Total time spent is greater than 50% in coordination of care (as documented) at patient's floor/unit and/or counseling patient: Coding Level of Care Code 74408 SUB INP/OBS CARE 2/35MIN Diagnoses Orthostasis I95.1 Degenerative joint disease (DJD) of lumbar spine M47.816 Wound of left ankle, initial encounter S91.002A Encounter type: initial encounter Abdominal wall cellulitis L03.311 Hypomagnesemia E83.42 Hypokalemia E87.6 Ascites R18.8 Hepatic encephalopathy K76.82 Anemia D64.9 Thickened endometrium R93.89 Liver cirrhosis K74.60 Portal hypertension K76.6 Fall W19.XXXA Esophageal varices I85.00 Tobacco use Z72.0 Hypothyroidism E03.9 Anxiety F41.9 Vitamin D deficiency E55.9 (3) Wound of left ankle Encounter type: initial encounter Qualified Code(s): S91.002A - Unspecified open wound, left ankle, initial encounter
[2024-02-07 06:47] LABS: Calcium 8.7 mg/dl (8.6-10.3); Magnesium 1.6 mg/dl (1.7-2.4); Potassium 4.3 mmol/L (3.5-5.1)
[2024-02-07 06:53] LABS: Creatinine Clr Calc Pharmacy 63.6 ml/min
[2024-02-07] MEDS: MAGNESIUM SULFATE / D5W 1 GM/100 ML BAG IV ONE (09:10)
[2024-02-07] MEDS: MAGNESIUM OXIDE 400 MG TAB PO SCH (09:11)
[2024-02-07 12:35] LABS: Hematocrit (blood only) 27.6 % (37.0-47.0); Hemoglobin 8.6 g/dl (12.0-16.0); Mean Corpuscular Hemoglobin 29.2 pg (25.0-34.0); Mean Corpuscular Hgb Conc 31.2 g/dL (32.0-36.0); Mean Corpuscular Volume 93.6 fL (80.0-100.0); Mean Platelet Volume 10.4 fL (9.4-12.4); Platelet Count 242 K/uL (130-400); RDW Coefficient of Variation 16.3 % (11.5-14.5); RDW Standard Deviation 55.8 fL (36.4-46.3); Red Blood Count 2.95 M/uL (4.20-5.40); White Blood Count 6.29 K/ul (4.8-10.8)
[2024-02-07] MEDS: FLUDROCORTISONE ACETATE 0.1 MG TAB PO SCH (13:29)
--- NOTE | 2024-02-07 19:44 | Hospitalist Progress Note ---
Date of Service February 07, 2024 Assessment & Plan (1) Orthostasis: Plan: About 20 point drop in standing BP or less over the last 24 hours This is on midodrine 10mg TID on 02/03/24 Her dizziness resolved then returned today despite the drops being reasonable Only other option is to add florinef but will have to watch for worsening fluid retention in setting of her cirrhosis Add florinef 0.1mg daily Cont midodrine 10mg TID Needs diuretics for her advanced cirrhosis -- continue lasix 20mg daily + aldactone 50mg daily but may need to lower latter (2) Degenerative joint disease (DJD) of lumbar spine: Plan: checked t-spine CT - NO compression fracture checked CTA chest - NO PE or pneumonia or rib fractures she has had mod-severe low back pain off/on throughout this stay she mentioned she has had epidural pain shots in the past ([facility]) t-spine MRI wnl l-spine MRI with severe DJD at multiple levels fortunately no diskitis, abscess, tumor or fracture cont oxycodone 5mg q6h prn pain cont gabapentin 300mg HS cont baclofen 5mg BID unfortunately she is poor candidate for NSAIDs due to cirrhosis (3) Wound of left ankle: Plan: 01/21/24 - s/p left ankle hardware removal & obtainment of intra-op cultures removal of hardware was necessary due to chronic infection of such likely has element of osteomyelitis in the ankle due to the chronically infected wounds & hardware cultures x 2 with MSSA as well as anaerobic bacteria blood cx's negative cont cefazolin 2g IV q8h cont flagyl 500mg PO BID for anaerobic coverage cont walking boot with ambulation Dr Merida's assistance appreciated; all sutures now removed from the ankle there is a small amount of dehiscence on the lateral aspect; Dr Merida placed steri strips placed wound care consult for recs re: the dehidscence at time of discharge STOP the cefazolin and change to -- cefadroxil 1g PO bid to complete 6 weeks of abx starting from day of surgery (01/20, end through 03/02) of note -- patient had suffered a L ankle Fx about 5 years ago underwent s/p ORIF for L ankle fracture at the [facility] in [place], [place] she then developed non-healing wounds from the L ankle both medially and laterally since that surgery (4) Abdominal wall cellulitis: Plan: suspected resolved right-sided abdominal wall cont ancef cont daptomycin - day #6 of such (5) Hypomagnesemia: Plan: mag 1.6 today mag sulfate 1gm x 1 add mag oxide 400mg daily for maintenance due to daily lasix usage (6) Hypokalemia: Plan: replaced resolved BMP with normal K today (7) Ascites: Plan: s/p paracentesis 01/12/24 with 4 L of fluid removed s/p paracentesis 01/26/24 with similar amount of fluid removed fluid was transudative by fluid analysis no evidence of SBP SAAG >1.2 c/w portal HTN etiology of cirrhosis?? pt denies h/o heavy alcohol abuse but I am concerned this is indeed the cause of her liver disease HepB, HepC titers negative doubt MASH/GRIFFITH but can't rule it out not a candidate for beta billie therapy due to orthostasis imaging this admission showed evidence of esophageal varices will need outpatient GI referral and surveillance EGD will be needed cont PPI cont lasix/aldactone plan for diagnostic/therapeutic para tomorrow due to her complaints of bloating she does not tolerate large amounts of ascites (8) Hepatic encephalopathy: Plan: Ammonia mildly elevated at 73.0 on arrival s/p lactulose with resolution does not tolerate lactulose - causes too much gaseous distension pt with intermittent confusion - rechecked ammonia today - wnl due to ?alcohol use in the past will give empiric thiamine 200mg BID (9) Anemia: Plan: B12/folate wnl Ferritin 57 transferrin sat 27%, however although latter is normal the ferritin is low end of normal thus, cont iron supplementation once daily s/p 1 unit PRBCs this admission with stable H/H since then CBC today with stable H/H (10) Thickened endometrium: Plan: A/P CT on arrival revealed a thickened endometrium Nonemergent follow-up with gynecology is recommended upon discharge (11) Liver cirrhosis: Plan: see above (12) Portal hypertension: Plan: as noted on admission CT a/p see above (13) Fall: Plan: no fractures on extensive imaging obtained since admission including the L ankle (14) Esophageal varices: Plan: will need outpatient surveillance EGD ideally low-dose nadalol or inderal should be started if BPs can tolerate but doubtful given her orthostasis cont PPI once daily cont carafate 1gm QID (15) Tobacco use: Plan: Nicotine patch daily Continue to encourage cessation (16) Hypothyroidism: Plan: TSH is high FT4 borderline low in light of her host of medical issues, volume overload from cirrhosis, Na issues, etc - would benefit from replacement started 50mcg daily -- first dose 01/23/24 repeat TSH 6 weeks (17) Anxiety: Plan: consider SSRI or similar but defer for now (18) Vitamin D deficiency: Plan: 25-OH vit D level = 14 ergocalciferol 50,000 units weekly x 8 weeks, first dose 02/03/24 Plan DVT proph - heparin 5000 BID can d/c to [facility] tomorrow following her para our auth expires tomorrow so window to get her to rehab is slim Admission and Anticipated Discharge Date Admission Date: January 11, 2024 Subjective patient was to transfer to [facility] today however, when I went to see her, she developed tears in her eyes she said she was weak, did not feel well, was dizzy ate 100% of breakfast however at one point stated "I Haven't had my pain meds in a few days" did tell her she had meds yesterday and again this am for pain she asked me to examine the left foot/ankle back pain/ankle pain left at baseline mild abdominal discomfort - at baseline no nausea or emesis Review of Systems Review of Systems: gen - states she ambulated to the bathroom and back to bed today without her boot and without a walker & felt steady cv - no chest pain pulm - no dyspnea; no CHAMPION - no LUTS GI - had stool this am; soft, brown Physical Exam Physical Exam: gen - laying in bed, NAD, looks same as previous visit; tearful neck - no JVD mouth - MMM heart - RRR, s1 s2, no murmur lungs - CTA b/l abd - resolved erythema of abdominal wall on right side of abdomen; nontender; mild ascites; BS+, no HSM; dry, flaky scaly skin on abd wall resolved ext - no edema b/l; pulses feet 2+ b/l psych - awake/alert/oriented; tearful, anxious skin - steri-strips in place medial/lateral ankle; lateral incision well-healed except for a 1.5cm portion near the malleolus that is about 2mm dehisced; no drainage; no odor; no swelling; no erythema Results & Data Results & Data Vital Signs (Past 12 Hours) Vital Signs Temp Pulse Resp BP Pulse Ox O2 Del Method 02/07/24 16:43 90 20 117/71 97 Room Air 02/07/24 14:49 37.0 C 85 18 101/65 96 Room Air 02/07/24 12:20 104 H 18 110/66 98 Room Air 02/07/24 08:25 92 H 20 112/70 96 Room Air 02/07/24 08:00 Room Air Laboratory Results Laboratory Results 02/07/24 02/07/24 06:01 12:24 WBC 6.29 RBC 2.95 L Hgb 8.6 L Hct 27.6 L MCV 93.6 MCH 29.2 MCHC 31.2 L RDW Std Deviation 55.8 H RDW Coeff of Liam 16.3 H Plt Count 242 MPV 10.4 Sodium 133 L Potassium 4.3 Chloride 103 Carbon Dioxide 24 Anion Gap 6 BUN 24 H Creatinine 0.80 Est Cr Clr Drug Dosing 63.6 eGFR 80.71 BUN/Creatinine Ratio 30.0 H Glucose 94 Calcium 8.7 Magnesium 1.6 L PG Care Time/CCT Total # of Minutes Spent Total Time Spent with Patient: Total time spent is greater than 50% in coordination of care (as documented) at patient's floor/unit and/or counseling patient: Coding Level of Care Code 41856 SUB INP/OBS CARE 2/35MIN Diagnoses Orthostasis I95.1 Degenerative joint disease (DJD) of lumbar spine M47.816 Wound of left ankle, initial encounter S91.002A Encounter type: initial encounter Abdominal wall cellulitis L03.311 Hypomagnesemia E83.42 Hypokalemia E87.6 Ascites R18.8 Hepatic encephalopathy K76.82 Anemia D64.9 Thickened endometrium R93.89 Liver cirrhosis K74.60 Portal hypertension K76.6 Fall W19.XXXA Esophageal varices I85.00 Tobacco use Z72.0 Hypothyroidism E03.9 Anxiety F41.9 Vitamin D deficiency E55.9 (3) Wound of left ankle Encounter type: initial encounter Qualified Code(s): S91.002A - Unspecified open wound, left ankle, initial encounter
[2024-02-08 07:16] VITALS: RESP 18
[2024-02-08] MEDS: SPIRONOLACTONE 25 MG TAB PO SCH (07:30)
[2024-02-08 10:19] VITALS: TEMP 98.1; O2SAT 97
[2024-02-08] MEDS: ALBUMIN 25% 25 GM/100 ML VIAL IV ONE (10:54)
[2024-02-08 11:13] LABS: Appearance Peritoneal Fluid Clear; Color Peritoneal Fluid Straw; RBC Peritoneal Fluid Auto < 2000 /uL; WBC Peritoneal Fluid Auto 256 /ul (0-300)
[2024-02-08 12:03] LABS: Lymphocytes, Fluid 12 %; Mono,Macrophage,Mesothelial 37 %; Neutrophils, Fluid 51 %
--- NOTE | 2024-02-08 12:10 | Discharge Summary ---
Discharge Summary Date of Service February 08, 2024 Principal Dx & Hospital Course #1 = Principal Diagnosis (1) Orthostasis: About 20 point drop in standing BP or less over the last 24 hours This is on midodrine 10mg TID on 02/03/24 Her dizziness resolved then returned today despite the drops being reasonable Only other option is to add florinef but will have to watch for worsening fluid retention in setting of her cirrhosis Add florinef 0.1mg daily Cont midodrine 10mg TID Needs diuretics for her advanced cirrhosis -- continue lasix 20mg daily + aldactone 50mg daily but may need to lower latter (2) Degenerative joint disease (DJD) of lumbar spine: checked t-spine CT - NO compression fracture checked CTA chest - NO PE or pneumonia or rib fractures she has had mod-severe low back pain off/on throughout this stay she mentioned she has had epidural pain shots in the past ([facility]) t-spine MRI wnl l-spine MRI with severe DJD at multiple levels fortunately no diskitis, abscess, tumor or fracture cont oxycodone 5mg q6h prn pain cont gabapentin 300mg HS cont baclofen 5mg BID unfortunately she is poor candidate for NSAIDs due to cirrhosis (3) Wound of left ankle: 01/21/24 - s/p left ankle hardware removal & obtainment of intra-op cultures removal of hardware was necessary due to chronic infection of such likely has element of osteomyelitis in the ankle due to the chronically infected wounds & hardware cultures x 2 with MSSA as well as anaerobic bacteria blood cx's negative cont cefazolin 2g IV q8h cont flagyl 500mg PO BID for anaerobic coverage cont walking boot with ambulation Dr Merida's assistance appreciated; all sutures now removed from the ankle there is a small amount of dehiscence on the lateral aspect; Dr Merida placed steri strips placed wound care consult for recs re: the dehidscence at time of discharge STOP the cefazolin and change to -- cefadroxil 1g PO bid to complete 6 weeks of abx starting from day of surgery (01/20, end through 03/02) of note -- patient had suffered a L ankle Fx about 5 years ago underwent s/p ORIF for L ankle fracture at the [facility] in [place], [place] she then developed non-healing wounds from the L ankle both medially and laterally since that surgery (4) Abdominal wall cellulitis: suspected resolved right-sided abdominal wall cont ancef cont daptomycin - day #6 of such (5) Hypomagnesemia: mag 1.6 today mag sulfate 1gm x 1 add mag oxide 400mg daily for maintenance due to daily lasix usage (6) Hypokalemia: replaced resolved BMP with normal K today (7) Ascites: s/p paracentesis 01/12/24 with 4 L of fluid removed s/p paracentesis 01/26/24 with similar amount of fluid removed fluid was transudative by fluid analysis no evidence of SBP SAAG >1.2 c/w portal HTN etiology of cirrhosis?? pt denies h/o heavy alcohol abuse but I am concerned this is indeed the cause of her liver disease HepB, HepC titers negative doubt MASH/GRIFFITH but can't rule it out not a candidate for beta billie therapy due to orthostasis imaging this admission showed evidence of esophageal varices will need outpatient GI referral and surveillance EGD will be needed cont PPI cont lasix/aldactone plan for diagnostic/therapeutic para tomorrow due to her complaints of bloating she does not tolerate large amounts of ascites (8) Hepatic encephalopathy: Ammonia mildly elevated at 73.0 on arrival s/p lactulose with resolution does not tolerate lactulose - causes too much gaseous distension pt with intermittent confusion - rechecked ammonia today - wnl due to ?alcohol use in the past will give empiric thiamine 200mg BID (9) Anemia: B12/folate wnl Ferritin 57 transferrin sat 27%, however although latter is normal the ferritin is low end of normal thus, cont iron supplementation once daily s/p 1 unit PRBCs this admission with stable H/H since then CBC today with stable H/H (10) Thickened endometrium: A/P CT on arrival revealed a thickened endometrium Nonemergent follow-up with gynecology is recommended upon discharge (11) Liver cirrhosis: see above (12) Portal hypertension: as noted on admission CT a/p see above (13) Fall: no fractures on extensive imaging obtained since admission including the L ankle (14) Esophageal varices: will need outpatient surveillance EGD ideally low-dose nadalol or inderal should be started if BPs can tolerate but doubtful given her orthostasis cont PPI once daily cont carafate 1gm QID (15) Tobacco use: Nicotine patch daily Continue to encourage cessation (16) Hypothyroidism: TSH is high FT4 borderline low in light of her host of medical issues, volume overload from cirrhosis, Na issues, etc - would benefit from replacement started 50mcg daily -- first dose 01/23/24 repeat TSH 6 weeks (17) Anxiety: consider SSRI or similar but defer for now (18) Vitamin D deficiency: 25-OH vit D level = 14 ergocalciferol 50,000 units weekly x 8 weeks, first dose 02/03/24 Plan DVT proph - heparin 5000 BID can d[facility]c [facility] following her para our auth expires tomorrow so window to get her to rehab is slim Admission HPI Per Admitting Provider Crys is a 68-year-old female with PMH of alcohol use disorder and hyperbilirubinemia. She presented via EMS on 01/10 for lower back pain and abdominal distention. Patient reports that she came in because her stomach became "very hard". She reports that abdominal distention has been worsening over the past 4 to 5 days. Patient lives alone. She reports that she does have a history of liver issues, and believes she has "sclerosis" of the liver. She denies any trouble breathing, but does note abdominal pressure/pain. He rates the pain 5/10 at present, and characterizes it as a dull/achy pain that comes in waves. She denies any recent falls. She denies using a walker or cane at home. She does not take any medicine on a daily basis. Patient reports she is an everyday tobacco cigarette smoker; <1 PPD. She denies chewing tobacco or recreational drug use. She does report that she uses alcohol, but reports that her last drink was over 1 week ago. She denies history of heavy alcohol use. Patient's vitals are stable at time of admission. ED course: Potassium 40 mEq p.o. Magnesium sulfate 1 g IV ROS: Patient endorses cold intolerance, abdominal distention/pain, lower back pain, or nausea. Patient denies fever, night-sweats, dizziness, lightheadedness, chest pain, SOB, chest palpitations, pleuritic CP, cough, vomiting, diarrhea, blood in ur ine/stool, melena, burning with urination, saddle anesthesia, and numbness/tingling in the legs. Discharge Exam gen - laying in bed, NAD, looks same as previous visit; tearful neck - no JVD mouth - MMM heart - RRR, s1 s2, no murmur lungs - CTA b/l abd - resolved erythema of abdominal wall on right side of abdomen; nontender; mild ascites; BS+, no HSM; dry, flaky scaly skin on abd wall resolved ext - no edema b/l; pulses feet 2+ b/l psych - awake/alert/oriented; tearful, anxious skin - steri-strips in place medial/lateral ankle; lateral incision well-healed except for a 1.5cm portion near the malleolus that is about 2mm dehisced; no drainage; no odor; no swelling; no erythema Discharge Plan Discharge Items Patient Disposition: Transfer [facility] Reason For Visit: ASCITES,LIVER DISEASE Discharge Diagnosis: 1. new diagnosis of cirrhosis with recurrent ascites, s/p paracentesis x 3 during her stay 2. chronic hardware infection of left ankle s/p removal of hardware by Dr Aguilar Merida, podiatry 3. 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 orthostatic hypotension - on midodrine/florinef 5. hyponatremia 6. hypomagnesemia 7. chronic anemia - discharge hemoglobin 8.6 8. severe lumbar spine DJD with resulting chronic low back pain 9. vitamin D deficiency 10. question of abdominal wall cellulitis - resolved 11. hypothyroidism - new diagnosis 12. hepatic encephalopathy - resolved 13. esophageal varices by way of CT scan 14. chronic thickened endometrium - outpatient follow-up needed 15. alcohol use disorder 16. anxiety 17. hypokalemia - resolved Activity: Resume your previous activity Weightbearing: Left weightbearing Weightbearing Comment: as tolerated on left foot/ankle Non-emergency contact: Primary Care Provider, Surgeon and Cable Swager Call non-emergency contact if: you have any medication questions, your symptoms worsen, you have a fever, your wound has increased redness, your wound has increased drainage and your wound pain has increased Follow-up/Referrals: Zac Caruso, DO [Physician] - (10-14 days, Dr Caruso or one of his partners - diagnosis - cirrhosis, varices, recurrent ascites ) Aguilar Merida, PIETERM [Physician] - (1-2 weeks recheck of L ankle incisions) PCP,NO [Primary Care Provider] - (patient may need new PCP; [facility] ) Diet: Low Sodium (2gm) Addtl Attending Provider Instructions: Mrs Morrison was admitted after presenting with worsening abdominal distension, a fall, and back pain. Imaging and examination were consistent with severe, decompensated cirrhosis of the liver. She underwent paracentesis 3 times during her prolonged hospitalization. She did NOT have SBP (bacterial peritonitis) on any of the 3 paracentesis procedures. She has been started on lasix + aldactone for treatment of edema & ascites. Blood pressures have not been conducive to add a beta billie for portal hypertension. Also addressed while here - 1. chronic left ankle hardware infection - had previous surgery for an ankle fracture several years ago in [place], [place] thru the [place] system. She reported to us chronic drainage from the left ankle wounds for several years. Seen by Dr Aguilar Merida, podiatry. Underwent removal of nearly all hardware in the left ankle on 01/21/24. Cultures x 2 with staph aureus and anaerobes. Has been on IV antibiotics since ~01/20/24 and infectious diseases is recommending a combination of cefadroxil + metronidazole until 03/02/24 to treat for presumed left ankle osteomyelitis. * continue local wound care to left ankle. There is mild incisional dehiscence on the lateral aspect of the left ankle. 2. orthostatic hypotension - slowly titrated midodrine three times daily for this issue. Ultimately added fludrocortisone once daily due to persistent orthostasis. Ms Morrison is typically not dizzy as long as the blood pressure drop is not greater than 20-25 points. * watch for excess fluid retention with fludrocortisone use; would advise to stop this medicine if fluid retention becomes refractory 3. new diagnosis of hypothyroidism - started on daily synthroid. TSH needed in early February 2024. 4. chronic low back pain - due to severe lumbar DJD as seen on MRI this admission. NO tumor, diskitis, abscess, fracture seen. Controlled with oxycodone prn, baclofen BID. She has had epidural pain [facility] per her [facility]. 5. anemia - s/p 1 unit PRBCs while here. Remains on iron supplementation by mouth. 6. hepatic encephalopathy - had such early in the stay, treated with lactulose. Attempts to keep Mrs Morrison on lactulose were not successful as it caused too much gaseous distension for her. Tolerating miralax with senna to produce at least 1-2 BMs/day. Consider addition of rifaximin. Recommendations - 1. wound care to left ankle as directed by wound care team 2. follow-up with Dr Merida for left ankle 1-2 weeks 3. follow-up [facility] in 1-2 weeks 4. likely to need repeat paracentesis in about 10-14 days, possibly later depending on how she is doing clinically; this can be done as outpatient at [facility] department with TIMMY Echols 5. weekly CBC, CMP, Magnesium, CRP while on antibiotics for left ankle 6. 2-gram salt restricted diet 7. repeat TSH in early February, 8. if psychology services are available please consult them for counseling, treatment of anxiety (and possible depression), etc. It was our pleasure to care for Mrs Morrison! -Dr Duffy Pending Studies at Discharge: Yes Studies:: ascites culture from 02/08/24 Stand-Alone Forms: My [facility] Skilled Items Patient informed of condition?: Yes DNR: No Discharge Level of Care: Skilled Communicable Disease: No Discharge Prognosis: Stable Lines: None Urinary Catheter: No Medications and DC Order Prescriptions: New metronidazole 500 mg Tablet 500 mg PO BID Qty: 60 1RF Rx Instructions: stop on 03/02/24. albuterol sulfate [Ventolin HFA] 90 mcg/actuation Hfa Aerosol Inhaler 2 puff inhalation Q4H PRN (Reason: cough/wheeze/shortness of breath) Qty: 1 0RF sennosides [Senokot] 8.6 mg Tablet 8.6 mg PO QAM Qty: 30 2RF polyethylene glycol 3350 [Miralax] 17 gram Powder In Packet 17 g PO DAILY Qty: 30 2RF sucralfate 100 mg/mL Suspension 1 g PO QID 30 Days Qty: 1200 2RF thiamine HCl (vitamin B1) 100 mg Tablet 200 mg PO BID 30 Days Qty: 120 0RF spironolactone 25 mg Tablet 50 mg PO QAM Qty: 60 2RF magnesium oxide 400 mg (241.3 mg magnesium) Tablet 400 mg PO QAM Qty: 30 2RF baclofen 10 mg Tablet 5 mg PO BID Qty: 60 0RF levothyroxine [Synthroid] 50 mcg Tablet 50 mcg PO DAILYBB Qty: 30 2RF pantoprazole 40 mg Tablet,Delayed Release (Dr/Ec) 40 mg PO QAM Qty: 30 2RF gabapentin 300 mg Capsule 300 mg PO HS Qty: 30 2RF furosemide 20 mg Tablet 20 mg PO QAM Qty: 30 2RF ferrous sulfate 325 mg (65 mg iron) Tablet,Delayed Release (Dr/Ec) 325 mg PO Q48H Qty: 30 2RF ondansetron 4 mg Tablet,Disintegrating 4 mg PO 829,2029 Qty: 60 0RF fludrocortisone 0.1 mg Tablet 0.1 mg PO QAM Qty: 30 2RF nicotine 7 mg/24 hr Patch 24 Hour 1 patch transdermal QAM Qty: 30 0RF oxycodone 5 mg Tablet 5 mg PO Q6H PRN (Reason: pain) Qty: 10 0RF midodrine 10 mg Tablet 10 mg PO TID@0800,1200,1700 Qty: 90 2RF cefadroxil 1 gram tablet 1,000 mg PO BID Qty: 60 1RF Rx Instructions: stop date 03/02/24 Discharge Orders: Discharge Order (Routine); Ordered 02/08/24 Ordered By: Man Nicole/Other Patient Handouts: Treating Cirrhosis, Understanding Cirrhosis, Cirrhosis of Liver Dc, ED Degenerative Disk Disease, ED Hypothyroidism, ED Low- Salt Diet Admission Data Admit Date/Time: 01/11/24 14:29 Attending Provider: Man Duffy Admit Provider: Antolin Bourgeois Primary Care Provider: PCP,NO Other Providers: Licha Owens; Antolin Bourgeois; Aguilar Merida; Kena Matta; Colette Rodriguez; Sejal Holland; Delbert Rodriguez; Mya Barrera; Evelyn Enrique Hospital Stay Data Consultations 01/11/24 14:19 ED Decision to Admit Stat 01/20/24 08:16 Consult Podiatry Routine 01/22/24 13:17 Consult Infectious Diseases Routine Procedures Performed Operation Date: 01/21/24 10:20 Actual Procedures p Left Ankle Hardware Removal(Left) - Aguilar Merida DPM Diagnostic Imagining Performed 01/11/24 10:47 CT abd pelvis IV con only Stat 01/12/24 07:00 IR paracentesis abd w/img US Routine 01/19/24 14:29 MR ankle LT wo/w con Routine 01/20/24 11:05 CT angio chest PE protocol Routine 01/20/24 11:06 CT thoracic spine w con Routine 01/21/24 13:35 FL ankle LT 2V Routine 01/26/24 IR paracentesis abd w/img US Routine 02/04/24 00:30 MR lumbar spine wo/w con Routine MR thoracic spine wo/w con Routine 02/08/24 IR paracentesis abd w/img US Routine Pending Results Patient Have Any Pending Studies at Discharge: Yes Discharge Instructions Given to Patient (Per Discharging Provider) Mrs Morrison was admitted after presenting with worsening abdominal distension, a fall, and back pain. Imaging and examination were consistent with severe, decompensated cirrhosis of the liver. She underwent paracentesis 3 times during her prolonged hospitalization. She did NOT have SBP (bacterial peritonitis) on any of the 3 paracentesis pro cedures. She has been started on lasix + aldactone for treatment of edema & ascites. Blood pressures have not been conducive to add a beta billie for portal hypertension. Also addressed while here - 1. chronic left ankle hardware infection - had previous surgery for an ankle fracture several years ago in [place] thru the [place] system. She reported to us chronic drainage from the left ankle wounds for several years. Seen by Dr Aguilar Merida, podiatry. Underwent removal of nearly all hardware in the left ankle on 01/21/24. Cultures x 2 with staph aureus and anaerobes. Has been on IV antibiotics since ~01/20/24 and infectious diseases is recommending a combination of cefadroxil + metronidazole until 03/02/24 to treat for presumed left ankle osteomyelitis. * continue local wound care to left ankle. There is mild incisional dehiscence on the lateral aspect of the left ankle. 2. orthostatic hypotension - slowly titrated midodrine three times daily for this issue. Ultimately added fludrocortisone once daily due to persistent orthostasis. Ms Morrison is typically not dizzy as long as the blood pressure drop is not greater than 20-25 points. * watch for excess fluid retention with fludrocortisone use; would advise to stop this medicine if fluid retention becomes refractory 3. new diagnosis of hypothyroidism - started on daily synthroid. TSH needed in early February 2024. 4. chronic low back pain - due to severe lumbar DJD as seen on MRI this admission. NO tumor, diskitis, abscess, fracture seen. Controlled with oxycodone prn, baclofen BID. She has [facility] her [facility]. 5. anemia - s/p 1 unit PRBCs while here. Remains on iron supplementation by mouth. 6. hepatic encephalopathy - had such early in the stay, treated with lactulose. Attempts to keep Mrs Morrison on lactulose were not successful as it caused too much gaseous distension for her. Tolerating miralax with senna to produce at le ast 1-2 BMs/day. Consider addition of rifaximin. Recommendations - 1. wound care to left ankle as directed by wound care team 2. follow-up with Dr Merida for left ankle 1-2 weeks 3. follow-up [facility] in 1-2 weeks 4. likely to need repeat paracentesis in about 10-14 days, possibly later depending on how she is doing clinically; this can be done as outpatient at [facility] department with TIMMY Echols 5. weekly CBC, CMP, Magnesium, CRP while on antibiotics for left ankle 6. 2-gram salt restricted diet 7. repeat TSH in early February, 8. if psychology services are available please consult them for counseling, treatment of anxiety (and possible depression), etc. It was our pleasure to care for Mrs Morrison! -Dr Duffy Coding Diagnoses Orthostasis I95.1 Degenerative joint disease (DJD) of lumbar spine M47.816 Wound of left ankle, initial encounter S91.002A Encounter type: initial encounter Abdominal wall cellulitis L03.311 Hypomagnesemia E83.42 Hypokalemia E87.6 Ascites R18.8 Hepatic encephalopathy K76.82 Anemia D64.9 Thickened endometrium R93.89 Liver cirrhosis K74.60 Portal hypertension K76.6 Fall W19.XXXA Esophageal varices I85.00 Tobacco use Z72.0 Hypothyroidism E03.9 Anxiety F41.9 Vitamin D deficiency E55.9
[2024-02-08 12:16] VITALS: BP 100/60; PULSE 85
--- NOTE | 2024-02-08 14:19 | Ultrasound Report ---
ULTRASOUND-GUIDED PARACENTESIS CLINICAL HISTORY: Ascites PROCEDURE: Procedure and risks were explained. Informed consent was obtained. A final timeout was com pleted. A pocket of ascites was identified in the left lower quadrant. The left lower quadrant was pr epped and draped in sterile fashion. 1% lidocaine was utilized for skin anesthesia. Utilizing ultrasound guidance, a 5 [place]ronesian safety centesis catheter was advanced into the pocket of as cites. Ultrasound image was obtained. A total of 3400 mL of yellow ascites fluid was removed with 1 L sent to the lab for analysis. The catheter was removed and Band-Aid applied. The patient tolerated t he procedure well. Vital signs will be monitored postprocedure. IMPRESSION: Ultrasound-guided paracentesis as above. Performed, dictated, and signed by Ritchie Yeh PA-C; to be co-signed by Dr. Vinny Hanley. Electronically signed by: Vinny Hanley M.D. 02/08/2024 2:18 PM
== END 2024-02-08 13:46 | DRG 987 ==
LOC: ED 09:53 → SUATTDRO 14:29 → 2N 14:29 → 3W 01-22 21:51